=== PATIENT | female | born 1970 ===

== ENCOUNTER 2017-04-16 21:27 | Inpatient (IN) | payer OTHER, MEDICAID ==
[2017-04-16 21:29] VITALS: BMI 21.0
--- NOTE | 2017-04-16 22:22 | ED PDOC ---
Arrival/HPI - General Chief Complaint: Psychiatric Evaluation Time Seen by Provider: 04/16/17 21:56 - History of Present Illness Narrative History of Present Illness (Text): 47 y/o F brought in by EMS for bizarre behavior, agitated, states smoked crack, is requesting psych eval and medication because she is feeling wired. She denies pain, dyspnea, vomiting. Past Medical History - Infectious Disease Hx of Infectious Diseases: None - Tetanus Immunization Tetanus Immunization: Unknown - Past Medical History Past Medical History: No Previous - Cardiac Hx Cardiac Disorders: No Hx Hypertension: No - Pulmonary Hx Respiratory Disorders: No Hx Tuberculosis: No - Neurological Hx Neurological Disorder: No HX Cerebrovascular Accident: No Hx Seizures: No - HEENT Hx HEENT Disorder: No - Renal Hx Renal Disorder: No - Endocrine/Metabolic Hx Endocrine Disorders: No - Hematological/Oncological Hx Blood Disorders: No Hx Cancer: No - Integumentary Hx Dermatological Disorder: No - Musculoskeletal/Rheumatological Hx Musculoskeletal Disorders: No Hx Falls: No - Gastrointestinal Hx Gastrointestinal Disorders: No - Genitourinary/Gynecological Hx Sexually Transmitted Diseases: No Hx Urinary Tract Infection: Yes - Psychiatric Hx Psychophysiologic Disorder: Yes Hx Anxiety: Yes Hx Bipolar Disorder: Yes Hx Depression: Yes Hx Emotional Abuse: No Hx Physical Abuse: No Hx Schizophrenia: No Hx Sexual Abuse: No Hx Substance Use: Yes (Crack/Cocaine) - Past Surgical History Past Surgical History: No Previous - Surgical History Other/Comment: Left index surgery - Anesthesia Hx Anesthesia: No - Suicidal Assessment Feels Threatened In Home Enviroment: No Family/Social History Family/Social History: No Known Family HX Smoking Status: Heavy Smoker > 10 Cigarettes Daily Hx Alcohol Use: No Hx Substance Use: Yes (Crack/Cocaine) Substance used: Crack/Cocaine Hx Substance Use Treatment: Yes Allergies/Home Meds Allergies/Adverse Reactions: Allergies Penicillins Allergy (Verified 02/09/16 03:17) RASH Review of Systems - Physician Review All systems were reviewed & negative as marked: Yes - Review of Systems Constitutional: absent: Fevers Cardiovascular: absent: Chest Pain Physical Exam - Physical Exam Narrative Physical Exam (Text): Constitutional: Agitated. Head: Normocephalic. Atraumatic. Eyes: PERRL. ENT: Moist mucous membranes. Neck: Supple. Cardiovascular: Regular rate. Chest: No tenderness. Respiratory: Clear to auscultation bilaterally. GI: Soft. Nontender. Nondistended. Back: No CVA tenderness. Musculoskeletal: No tenderness or swelling of extremities. Skin: No rash. Neurologic: Alert, no focal deficit. Vital Signs Pulse Resp BP Pulse Ox 04/16/17 21:27 126 H 24 114/62 97 Medical Decision Making ED Course and Treatment: Medically clear for psych evaluation. Plan: -- EKG -- Labs -- Chest X-ray One View -- Urinalysis -- HCG, Qualit Urine -- Reassess and disposition Progress Notes: 04/16/17 22:31 EKG shows Sinus rhythm at [address] elevation. Interpreted by me. 04/17/17 05:27 CXR Impression: As read by me, NAD - Lab Interpretations Lab Results: 04/16/17 22:50 04/16/17 22:50 Lab Results 04/17/17 03:34: Urine Opiates Screen Negative, Urine Methadone Screen Negative, Ur Barbiturates Screen Negative, Ur Phencyclidine Scrn Negative, Ur Amphetamines Screen Negative, U Benzodiazepines Scrn Negative, U Oth Cocaine Metabols Positive H, U Cannabinoids Screen Positive H 04/17/17 03:34: Urine Color Yellow, Urine Appearance Clear, Urine pH 7.0, Ur Specific [place] [employer] 1.010, Urine Protein Negative, Urine Glucose (UA) Negative, Urine Ketones Negative, Urine Blood Trace-lysed H, Urine Nitrate Negative, Urine Bilirubin Negative, Urine Urobilinogen 1.0 H, Ur Leukocyte Esterase Small H, Urine RBC 0 - 2, Urine WBC 1 - 3, Ur Epithelial Cells 0 - 2, Amorphous Sediment Few, Urine Bacteria Few, Urine HCG, Qual Negative 04/16/17 22:50: Alcohol, Quantitative 20 H 04/16/17 22:50: Salicylates < 1 L, Acetaminophen < 10.0 L 04/16/17 22:50: Sodium 135, Potassium 3.4 L, Chloride 100, Carbon Dioxide 24, Anion Gap 15, BUN 15, Creatinine 0.9, Est GFR ( Amer) > 60, Est GFR (Non- Af Amer) > 60, Random Glucose 82, Calcium 9.3, Total Bilirubin 0.3, AST 31, ALT 32, Alkaline Phosphatase 75, Total Protein 7.8, Albumin 3.9, Globulin 3.9, Albumin/Globulin Ratio 1.0 L 04/16/17 22:50: WBC 8.4 D, RBC 3.44 L, Hgb 10.9 L, Hct 32.6 L, MCV 94.8, MCH 31.7, MCHC 33.4, RDW 13.0, Plt Count 586 H, MPV 8.8, Gran % 66.4, Lymph % (Auto ) 24.5, [place] % (Auto) 7.5 H, Eos % (Auto) 1.0 L, Baso % (Auto) 0.6, Gran # 5.58 , Lymph # 2.1, [place] # 0.6, Eos # 0.1, Baso # 0.05 I have reviewed the lab results: Yes - RAD Interpretation Radiology Orders: 04/17/17 04:28 CHEST PORTABLE [RAD] Stat - EKG Interpretation Interpreted by ED Physician: Yes Type: 12 lead EKG Disposition/Present on Arrival - Present on Arrival Any Indicators Present on Arrival: No History of DVT/PE: No History of Uncontrolled Diabetes: No Urinary Catheter: No History of Decub. Ulcer: No History Surgical Site Infection Following: None - Disposition Have Diagnosis and Disposition been Completed?: Yes Diagnosis: Bipolar 1 disorder, Cocaine abuse, Cocaine-induced mood disorder Disposition: HOSPITALIZED Disposition Time: 06:15 Patient Plan: Admission Condition: SERIOUS Forms: Ge[employer] (Icelandic)
[2017-04-16 23:07] LABS: BASO # 0.05 K/mm3 (0.0-2.0); BASO % 0.6 % (0.0-3.0); EOS # 0.1 (0.0-0.7); GRAN # 5.58 (1.4-6.5); GRAN % 66.4 % (50.0-68.0); HEMOGLOBIN 10.9 g/dL (12.0-16.0); LYMPH # 2.1 (1.2-3.4); LYMPH % 24.5 % (22.0-35.0); MEAN CELL VOLUME 94.8 fl (80.0-105.0); MEAN CORPUSCULAR HEMOGLOBIN 31.7 pg (25.0-35.0); MEAN CORPUSCULAR HGB CONC 33.4 g/dl (31.0-37.0); MEAN PLATELET VOLUME 8.8 fl (7.0-11.0); MONO # 0.6 (0.1-0.6); MONO % 7.5 % (1.0-6.0); RBC 3.44 10^6/uL (3.5-6.1); WHITE BLOOD COUNT 8.4 10^3/ul (4.5-11.0)
[2017-04-16 23:17] LABS: ACETAMINOPHEN < 10.0 ug/ml (10.0-20.0); SALICYLATE < 1 mg/dL (2.0-20.0)
[2017-04-16 23:19] LABS: ALBUMIN 3.9 g/dL (3.0-4.8); ALT/SGPT 32 U/L (7-56); AST/SGOT 31 U/L (14-36); BLOOD UREA NITROGEN 15 mg/dL (7-21); CALCIUM 9.3 mg/dL (8.4-10.5); GFR AFRICAN-AMERICAN > 60; GFR NON-AFRICAN AMERICAN > 60
[2017-04-17 03:50] LABS: URINE BILIRUBIN NEGATIVE (NEGATIVE); URINE BLOOD TRACE-LYSED (NEGATIVE); URINE GLUCOSE (UA) NEGATIVE (NEGATIVE); URINE LEUKOCYTE ESTERASE SMALL Leu/uL (NEGATIVE); URINE NITRATE NEGATIVE (NEGATIVE); URINE PROTEIN NEGATIVE mg/dL (<30 mg/dL)
[2017-04-17 03:54] LABS: URINE APPEARANCE CLEAR (CLEAR); URINE COLOR YELLOW (YELLOW)
[2017-04-17 03:55] LABS: HCG,QUALITATIVE URINE NEGATIVE (NEGATIVE)
[2017-04-17 04:15] LABS: BARBITURATES, UR NEGATIVE (NEGATIVE); BENZODIAZEPINES, UR NEGATIVE (NEGATIVE); OPIATES, UR NEGATIVE (NEGATIVE); PHENCYCLIDINE, UR NEGATIVE (NEGATIVE)
[2017-04-17 04:21] LABS: URINE AMORPHOUS SEDIMENT FEW; URINE BACTERIA FEW (NEG); URINE EPITHELIAL CELLS 0 - 2 /hpf (0-5); URINE RBC 0 - 2 /hpf (0-2)
[2017-04-17] MEDS: DiphenhydrAMINE 50 mg/ml Inj IM PRN (07:39)
--- NOTE | 2017-04-17 10:10 | RAD ---
HISTORY: psych COMPARISON: 02/09/2016 FINDINGS: LUNGS: No active pulmonary disease. PLEURA: No significant pleural effusion identified, no pneumothorax apparent. CARDIOVASCULAR: Normal. OSSEOUS STRUCTURES: No significant abnormalities. VISUALIZED UPPER ABDOMEN: Normal. OTHER FINDINGS: None. IMPRESSION: No active disease.
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
--- NOTE | 2017-04-17 16:53 | PCM.BM ---
<Adri Lopez - Last Filed: 04/17/17 16:49> Treatment Plan Problems - Problems identified on initial assessmt agitated/aggressive Date Initiated: 04/17/17 Time Initiated: 16:30 Assessment reference: NA Status: Active Priority: 1 altered sleep pattern Date Initiated: 04/17/17 Time Initiated: 16:30 Assessment reference: NA Status: Active Priority: 2 high risk injury Date Initiated: 04/17/17 Time Initiated: 16:30 Assessment reference: NA Status: Active altered thought process Date Initiated: 04/17/17 Time Initiated: 16:55 Assessment reference: NA Status: Active medication non adherence Date Initiated: 04/17/17 Time Initiated: 16:56 Assessment reference: NA Status: Active Treatment assets and liabiliti Patient Assests: self-reliant, ADL independent, negotiates basic needs Patient Liabilities: live alone, financial problems, poor support system, substance abuse - Milieu Protocol Maintain good personal hygiene: every shift Encourage regular showers, every shift Remind patient to perform daily oral care, every shift Assist patient to perform ADL's Conduct patient checks and document Observation sheet: Q15 minutes Maintain personal safety: every shift Educate patient to report safety concerns to staff, every shift Monitor environment for contraband/sharps Medication safety: Monitor for expected outcome, potential side effects: every shift, Assess barriers to learning: every shift, Assess readiness for medication education: every shift Milieu Narrative: Milieu/structure/supportive therapy Medical consult was called SW consultation for discharge plan and social issues Med management Nicotine patch seroquel 200mg po tid for psychosis klonopin 0.5mg po tid scheduled for anxiety neurontin 300mg po tid for cravings ambien 5mg po hs for insomnia prn PRN meds Haldol/benadryl/ativan Family involvement Follow up on labs Will monitor closely Pt was educated about risk/benefits and alternatives of medications, coping strategies (safety plan, suicide prevention), relapse prevention, importance of follow up with psychiatrist and therapist, stay away from drugs/alcohol/smoking Discharge/Continuing Care - Education Needs Education Needs: Patient Medication, Patient Diagnosis/Disease Process, Patient Coping Skills, Patient Personal Hygiene/Grooming - Discharge Discharge Criteria: Tolerates medication w/o severe side effects, Free of Suicidal thoughts, Free of Homicidal thoughts, Free of paranoid thoughts, Free of agitation, Normal sleep pattern, Ability to care for self - Treatment Team Participation Patient/Family/SO Statement: Milieu/structure/supportive therapy Medical consult was called SW consultation for discharge plan and social issues Med management Nicotine patch seroquel 200mg po tid for psychosis klonopin 0.5mg po tid scheduled for anxiety neurontin 300mg po tid for cravings ambien 5mg po hs for insomnia prn PRN meds Haldol/benadryl/ativan Family involvement Follow up on labs Will monitor closely Pt was educated about risk/benefits and alternatives of medications, coping strategies (safety plan, suicide prevention), relapse prevention, importance of follow up with psychiatrist and therapist, stay away from drugs/alcohol/smoking <Ines Khoury Y - Last Filed: 04/17/17 17:28> Family Contact Family involvement: Famliy/SO not involved Family contact: Patient declines to allow family contact at present
--- NOTE | 2017-04-17 20:25 | CARD ---
APPROVED REPORT EKG Measurement Heart [id number] <Conclusion> Sinus tachycardia Biatrial enlargement Abnormal ECG
[2017-04-18] MEDS ORDERED: Potassium Chloride 20 mEq ER Tab PO ONE (06:51)
--- NOTE | 2017-04-18 09:20 | PCM.PYCHPN ---
Psychiatric Progress Note - Psychiatric Progress Note Patient seen today, length of contact: 25 min Patient Chief Complaint: depressed Problems Identified/Issues Discussed: I reviewed assessment and recent notes. I met with patient at bedside. Patient is known to me from prior admissions. She appears unkempt, oriented x3 and tenuously cooperative with my questioning. She has been labile and irritable on the unit and has required IM prns. Angry last night due to another patient's snoring and was given Ativan. Patient tells me that she is very depressed and hasn't been sleeping well. She is used to higher doses of Seroquel. Patient denies hallucinations and doesn't appear to be responding to internal stimuli. She denies discomfort, side effects or pain. Insight and Judgment are poor. . Diagnostic Results: schizoaffective d/o panic disorder cannabis dependence borderline personality d/o r/o antisocial personality disorder Medication Change: Yes (Increased Seroquel) Medical Record Reviewed: Yes Mental Status Examination - Cognitive Function Orientation: Person Attention: WNL Concentration: Poor Association: Loose - Mood Mood: Depressed - Affect Affect: Constricted, Flat, Other (labile) - Formal Thought Process Formal Thought Process: Hallucinations (currently denies), Delusions, Paranoia, Loosening of associations - Homicidal Ideation Homicidal Ideation: No Goal/Treatment Plan - Goal/Treatment Plan Progress Toward Problem(s) and Goals/Treatment Plan: * c/w current tx and plan * Increased Seroquel to 100/100/200 on 04/18/16 to help with mood control and off -label for sleep * No new weekend labs thus far * Vitals reviewed and noted below: 02/09/16 02/10/16 04/17/17 14:00 07:23 01:29 Temperature 97.6 F 98.0 F Pulse Rate 88 73 95 H Respiratory 18 20 18 Rate Blood Pressure 112/75 96/70 L 116/64 04/17/17 04/17/17 03:29 05:29 Temperature Pulse Rate 92 H 93 H Respiratory 18 18 Rate Blood Pressure 114/63 112/62
[2017-04-18] MEDS: Multivitamin With Minerals Tab PO SCH (10:09)
[2017-04-18] MEDS: DiphenhydrAMINE 50 mg/ml Inj IM PRN (19:45)
[2017-04-19 08:11] LABS: HEMOGLOBIN 12.5 g/dL (12.0-16.0); MEAN CORPUSCULAR HEMOGLOBIN 31.7 pg (25.0-35.0); MEAN CORPUSCULAR HGB CONC 32.1 g/dl (31.0-37.0); MEAN PLATELET VOLUME 9.2 fl (7.0-11.0); RBC 3.94 10^6/uL (3.5-6.1); RED CELL DISTRIBUTION WIDTH 13.6 % (11.5-14.5); WHITE BLOOD COUNT 9.2 10^3/ul (4.5-11.0)
[2017-04-19] MEDS: Multivitamin With Minerals Tab PO SCH (08:21)
[2017-04-19 08:25] LABS: ALT/SGPT 31 U/L (7-56); AST/SGOT 51 U/L (14-36); BLOOD UREA NITROGEN 16 mg/dL (7-21); CALCIUM 9.7 mg/dL (8.4-10.5); GFR AFRICAN-AMERICAN > 60; GFR NON-AFRICAN AMERICAN > 60
[2017-04-19 08:44] LABS: MEAN CELL VOLUME 98.7 fl (80.0-105.0)
--- NOTE | 2017-04-19 09:01 | PCM.PYCHPN ---
Psychiatric Progress Note - Psychiatric Progress Note Patient seen today, length of contact: 25 min Patient Chief Complaint: depressed Problems Identified/Issues Discussed: I reviewed recent notes and met with patient at bedside. Patient has been labile , loud and disruptive on the unit. She required Haldol, Ativan and Benadryl IMs last night. This morning she appears unkempt and emotional. Indicates that she is "not good". Patient is upset that her daughter hates her and has no compassion for her. Patient also had bad dreams last night and feels that people are coming after her. She denies hallucinations and she isn't responding to internal stimuli during our interview. She is, however, emotionally brittle and anxious. Presently she denies discomfort, side effects or pain. Tolerating her medications, including recent increase of Seroquel last night. Insight and judgment remains poor, impulse control is tenuous. Diagnostic Results: schizoaffective d/o panic disorder cannabis dependence borderline personality d/o r/o antisocial personality disorder Medication Change: Yes (Increased Seroquel) Medical Record Reviewed: Yes Mental Status Examination - Cognitive Function Orientation: Person Attention: WNL Concentration: Poor Association: Loose - Mood Mood: Depressed ("not good") - Affect Affect: Constricted, Flat, Other (labile, emotional) - Formal Thought Process Formal Thought Process: Hallucinations (currently denies), Delusions, Paranoia ( feels that people are coming after her), Loosening of associations - Homicidal Ideation Homicidal Ideation: No Goal/Treatment Plan - Goal/Treatment Plan Progress Toward Problem(s) and Goals/Treatment Plan: * c/w current tx and plan * Increased Seroquel to 100/100/200 on 04/18/17 and again on 04/19/17 to 100/100/ 250 to help with mood control and off-label for sleep * Vitals reviewed and noted below: 04/17/17 04/17/17 04/17/17 01:29 03:29 05:29 Pulse Rate 95 H 92 H 93 H Pulse Rate [ Radial] Respiratory 18 Rate Blood Pressure 116/64 114/63 112/62 04/17/17 11:16 Pulse Rate Pulse Rate [ 72 Radial] Respiratory 16 Rate Blood Pressure * Recent weekend floor labs noted below: Laboratory Results - last 24 hr 04/19/17 04/19/17 07:45 07:45 WBC 9.2 RBC 3.94 Hgb 12.5 Hct 38.9 MCV 98.7 D MCH 31.7 MCHC 32.1 RDW 13.6 Plt Count 558 H MPV 9.2 Sodium 137 Potassium 4.5 Chloride 103 Carbon Dioxide 29 Anion Gap 10 BUN 16 Creatinine 0.7 Est GFR ( Amer) > 60 Est GFR (Non-Af Amer) > 60 Random Glucose 100 Calcium 9.7 Total Bilirubin 0.2 AST 51 H D ALT 31 Alkaline Phosphatase 73 Total Protein 8.3 Albumin 4.0 Globulin 4.2 Albumin/Globulin Ratio 1.0 L
--- NOTE | 2017-04-19 14:19 | PN ---
DATE: SUBJECTIVE: I saw her in her room in psychiatric floor. She is very upset. She is very angry. She said she has a lot of anger problem. She also says she is too thin and she needs Ensure. She wants an HIV test. She wants to be checked of her kidneys and her liver. She wants to have a lot of things. She was very demanding and forceful this morning with some pressured speech. She is on Ambien, Ativan, Benadryl, Haldol, potassium replacement, Klonopin, Neurontin, Nicoderm patch, Seroquel, vitamins, and Tylenol. OBJECTIVE: VITAL SIGNS: Temperature 97.9, 102 pulse, 116/75 blood pressure, 20 respiratory rate, and 90% sat on room air. HEENT: Head is atraumatic, normocephalic. Throat is moist. NECK: Supple. HEART: Regular rate. LUNGS: Clear to auscultation. ABDOMEN: Soft and nontender. Positive bowel sounds. EXTREMITIES: No edema. LABORATORY DATA: She has white count of 9.2, hemoglobin of 12.5, hematocrit 30.9, and platelets are 558. Sodium 137, potassium 4.5, BUN 16, creatinine 0.7, GFR is greater than 60, sugar is 100, calcium is 9.7, total bilirubin is 0.2, AST is 51, ALT is 31, alkaline phosphatase is 73, total protein is 8.3, and albumin is 4.2. Urine is clean. Toxicology was positive for cocaine and marijuana and alcohol. IMPRESSION AND PLAN: She is being seen by Psychiatry. She has multiple issues, drug abuse with cocaine and marijuana, bipolar, and low potassium. I am going to order some Ensure for her. Recheck her HIV and some other blood tests and ultrasound of the abdomen. We will watch her closely. Nate Smiley DO
[2017-04-20] MEDS ORDERED: Bisacodyl 5mg EC Tab PO ONE (07:33)
[2017-04-20] MEDS: Multivitamin With Minerals Tab PO SCH (08:22)
--- NOTE | 2017-04-20 08:22 | CON ---
DATE: 04/18/2017 SUBJECTIVE: I was called to see Bárbara, who is in room 513, sleeping. She is not doing well at all. She is having bizarre behavior. I understand that she did some cocaine and marijuana, smoked crack, and now she is out of if; she was put up in the psychiatric meng. Denies any real medical history, but urinary tract infection, anxiety, and depression. Now, she is doing crack cocaine and marijuana. She had a surgery of her left index finger. She smokes. She does drugs, crack cocaine. Denies alcohol. She has been in substance abuse treatments. ALLERGIES: PENICILLIN. REVIEW OF SYSTEMS: Difficult to get, she is in and out of it, not feeling well, that is all she would say. No acute vision or hearing changes. No chest pain, shortness of breath, or abdominal pain. Some cramping. No nauseousness. Not a good historian. PHYSICAL EXAMINATION VITAL SIGNS: Pulse 126, 24 respiratory rate, 114/62 blood pressure, 97% of O2 saturation. HEENT: Head is atraumatic, normocephalic. HEART: Regular rate. LUNGS: Decreased breath sounds, but clear. ABDOMEN: Soft, nontender. EXTREMITIES: No edema. NEUROLOGIC: Alert. No clear neurological deficit at this time. LABORATORY DATA: She had tests, she has an 8.4 white count, 10.9 hemoglobin, 32.6 hematocrit, with 586 platelets. Sodium 135, potassium is 3.4, replace the potassium, BUN 50, creatinine 0.9, GFR is greater than 60, sugar is 82, calcium is 9.3, total bilirubin is 0.3, AST is 31, ALT is 32, alkaline phosphatase 75, total protein is 7.8. Urine was clean. Toxicology showed positive for cocaine and also positive for alcohol, but she denied that she did, not a great historian. ASSESSMENT AND PLAN: We will check her labs tomorrow. I encouraged her to eat as best as she can, participate in groups. I do not think she is off. We will follow medically, make sure that she gets the potassium pill because she has low potassium. Nate Smiley DO [facility] # [id number] JAQUELINE
[2017-04-20 09:56] LABS: HEMOGLOBIN 10.8 g/dL (12.0-16.0); MEAN CELL VOLUME 97.7 fl (80.0-105.0); MEAN CORPUSCULAR HEMOGLOBIN 31.7 pg (25.0-35.0); MEAN CORPUSCULAR HGB CONC 32.4 g/dl (31.0-37.0); MEAN PLATELET VOLUME 8.9 fl (7.0-11.0); RBC 3.41 10^6/uL (3.5-6.1); RED CELL DISTRIBUTION WIDTH 13.5 % (11.5-14.5); WHITE BLOOD COUNT 6.6 10^3/ul (4.5-11.0)
--- NOTE | 2017-04-20 10:04 | US ---
HISTORY: Abdominal pain COMPARISON: None. TECHNIQUE: Grayscale imaging was performed. FINDINGS: LIVER: Measures 16.0 cm. Normal echogenicity of the liver parenchyma. No mass. No intrahepatic bile duct dilatation. GALLBLADDER: The gallbladder is contracted. No gallstones or pericholecystic fluid. The sonographic Huggins's sign is negative. COMMON BILE DUCT: Measures 4.9 mm. No stones. No dilatation. PANCREAS: Unremarkable as visualized. No mass. No ductal dilatation. RIGHT KIDNEY: Measures 11.6cm. Normal echogenicity. No calculus, mass, or hydronephrosis. There is a 1.6 x 1.8 x 2.1 cm cyst in the upper pole. LEFT KIDNEY: Measures 12.2cm. Normal echogenicity. No calculus, mass, or hydronephrosis. SPLEEN: Normal in size and contour. No mass. AORTA: No aneurysmal dilatation. IVC: Unremarkable. OTHER FINDINGS: None. IMPRESSION: The gallbladder is contracted which may be due to nonfasting status or chronic cholecystitis. If clinically indicated, HIDA scan may be performed to evaluate gallbladder function.
[2017-04-20 10:10] LABS: ALB/GLOB RATIO 0.9 (1.1-1.8); ALBUMIN 3.5 g/dL (3.0-4.8); ALT/SGPT 30 U/L (7-56); AST/SGOT 48 U/L (14-36); BLOOD UREA NITROGEN 18 mg/dL (7-21); CALCIUM 9.2 mg/dL (8.4-10.5); GFR AFRICAN-AMERICAN > 60; GFR NON-AFRICAN AMERICAN > 60
--- NOTE | 2017-04-20 13:40 | PCM.BM ---
- Diagnosis (1) Borderline personality disorder Status: Acute Interventions: 04/17/17 15:36 Psychoeducation Psychopharmacology/adjustment of medications as needed/ monitoring possible side effects Evaluate pt on daily basis Compliance with medications and follow up appointments Suicide and homicide risk assessment and prevention, coping strategies, safety plan Relapse prevention Family involvement As outpatient: Transference-focused psychotherapy/dialectical behavioral therapy /schema therapy Mindfulness skills (2) Polysubstance dependence Status: Acute Interventions: 04/17/17 15:36 Monitoring withdrawal symptoms Medical detoxification Pharmacotherapy for alcohol/benzos/opioid dependence Maintaining sobriety Relapse prevention Possible rehabilitation Motivational interviewing 12-step programs: AA meetings (3) Schizoaffective disorder Status: Acute Interventions: 04/17/17 15:37 Psychoeducation/psychotherapy Psychopharmacology/adjustment of medications as needed/ monitoring possible side effects Evaluate pt on daily basis Compliance with medications and follow up appointments Long acting medication if pt is noncompliant with pill form Suicide and homicide risk assessment and prevention, coping strategies, safety plan Relapse prevention Reduction of symptoms Improve functional status Possible assertive community treatment Cognitive behavioral therapy Family involvement Possible social skill training as outpatient - Milieu Protocol Milieu Narrative: Milieu/structure/supportive therapy Medical consult was called consultation for discharge plan and social issues Med management Nicotine patch seroquel 200mg po tid for psychosis klonopin 0.5mg po tid scheduled for anxiety neurontin 300mg po tid for cravings ambien 5mg po hs for insomnia prn PRN meds Haldol/benadryl/ativan Family involvement Follow up on labs Will monitor closely Pt was educated about risk/benefits and alternatives of medications, coping strategies (safety plan, suicide prevention), relapse prevention, importance of follow up with psychiatrist and therapist, stay away from drugs/alcohol/smoking Discharge/Continuing Care - Treatment Team Participation Patient/Family/SO Statement: Milieu/structure/supportive therapy Medical consult was called consultation for discharge plan and social issues Med management Nicotine patch seroquel 200mg po tid for psychosis klonopin 0.5mg po tid scheduled for anxiety neurontin 300mg po tid for cravings ambien 5mg po hs for insomnia prn PRN meds Haldol/benadryl/ativan Family involvement Follow up on labs Will monitor closely Pt was educated about risk/benefits and alternatives of medications, coping strategies (safety plan, suicide prevention), relapse prevention, importance of follow up with psychiatrist and therapist, stay away from drugs/alcohol/smoking
--- NOTE | 2017-04-20 14:12 | PN ---
DATE: SUBJECTIVE: I saw Bárbara in her room in the psychiatric floor. She is not sleeping that great. She was also quite constipated and wants something for that. She is getting her Ensure and she is happy about that. I gave her Dulcolax tablet, that is what we have agreed upon. Otherwise, she is not doing very well yet, just not comfortable, not sleeping well. OBJECTIVE: VITAL SIGNS: She has 97.9 temperature, 80 pulse, 126/85 blood pressure, 20 respiratory rate, 98% O2 sat on room air. HEENT: Head is atraumatic, normocephalic. HEART: Regular rate. LUNGS: Decreased breath sounds, but clear. ABDOMEN: Soft. EXTREMITIES: No edema. MEDICATIONS: She is currently on Ambien, Ativan, Benadryl, Haldol, Klonopin, Neurontin, Nicoderm patch, Seroquel, , Tylenol. I added Dulcolax tablet today. LABORATORY DATA: She has white count 9.2, hemoglobin of 12.5, hematocrit 38.9, and platelets 558,000. Sodium 137, potassium 4.5, BUN 16, creatinine 0.7, GFR is greater than 60, sugar is 100, calcium is 9.7, total bilirubin is 0.2, AST is 51, ALT is 31, alkaline phosphatase is 73, total protein is 8.3. Urine is now negative for , positive for cocaine and marijuana and alcohol. IMPRESSION AND PLAN: She is here in the hospital on the psychiatric unit for drug abuse, cocaine and marijuana; bizarre behavior; bipolar; constipation; low potassium. We are watching her closely. Encouragement with groups and medications . Nate Smiley DO JAQUELINE
--- NOTE | 2017-04-20 15:04 | PCM.PYCHPN ---
Psychiatric Progress Note - Psychiatric Progress Note Patient seen today, length of contact: 30min Patient Chief Complaint: "everybody hates me..." Problems Identified/Issues Discussed: Suicide/ homicide prevention, past psychiatric h/o, current psychiatric symptoms , medical problems, risk/benefits and alternatives of medications, medications compliance, coping strategies, substance abuse h/o, relapse prevention, importance of follow up with psychiatrist and therapist, discharge plan. Medical Problems: UTI abx started Diagnostic Results: 04/20/17 09:40 04/20/17 09:40 Lab Results 04/20/17 09:40: TSH 3rd Generation 1.56 04/20/17 09:40: Sodium 138, Potassium 3.7, Chloride 106, Carbon Dioxide 23, Anion Gap 12, BUN 18, Creatinine 0.6 L, Est GFR ( Amer) > 60, Est GFR ( Non-Af Amer) > 60, Random Glucose 151 H, Calcium 9.2, Total Bilirubin 0.1 L, AST 48 H, ALT 30, Alkaline Phosphatase 73, Total Protein 7.2, Albumin 3.5, Globulin 3.8, Albumin/Globulin Ratio 0.9 L 04/20/17 09:40: WBC 6.6 D, RBC 3.41 L, Hgb 10.8 L, Hct 33.3 L, MCV 97.7, MCH 31.7, MCHC 32.4, RDW 13.5, Plt Count 455 H, MPV 8.9 04/19/17 07:45: Sodium 137, Potassium 4.5, Chloride 103, Carbon Dioxide 29, Anion Gap 10, BUN 16, Creatinine 0.7, Est GFR ( Amer) > 60, Est GFR (Non- Af Amer) > 60, Random Glucose 100, Calcium 9.7, Total Bilirubin 0.2, AST 51 H D , ALT 31, Alkaline Phosphatase 73, Total Protein 8.3, Albumin 4.0, Globulin 4.2 , Albumin/Globulin Ratio 1.0 L 04/19/17 07:45: WBC 9.2, RBC 3.94, Hgb 12.5, Hct 38.9, MCV 98.7 D, MCH 31.7, MCHC 32.1, RDW 13.6, Plt Count 558 H, MPV 9.2 04/17/17 03:34: Urine Opiates Screen Negative, Urine Methadone Screen Negative, Ur Barbiturates Screen Negative, Ur Phencyclidine Scrn Negative, Ur Amphetamines Screen Negative, U Benzodiazepines Scrn Negative, U Oth Cocaine Metabols Positive H, U Cannabinoids Screen Positive H 04/17/17 03:34: Urine Color Yellow, Urine Appearance Clear, Urine pH 7.0, Ur Specific [place] 1.010, Urine Protein Negative, Urine Glucose (UA) Negative, Urine Ketones Negative, Urine Blood Trace-lysed H, Urine Nitrate Negative, Urine Bilirubin Negative, Urine Urobilinogen 1.0 H, Ur Leukocyte Esterase Small H, Urine RBC 0 - 2, Urine WBC 1 - 3, Ur Epithelial Cells 0 - 2, Amorphous Sediment Few, Urine Bacteria Few, Urine HCG, Qual Negative 04/16/17 22:50: Alcohol, Quantitative 20 H 04/16/17 22:50: Salicylates < 1 L, Acetaminophen < 10.0 L 04/16/17 22:50: Sodium 135, Potassium 3.4 L, Chloride 100, Carbon Dioxide 24, Anion Gap 15, BUN 15, Creatinine 0.9, Est GFR ( Amer) > 60, Est GFR (Non- Af Amer) > 60, Random Glucose 82, Calcium 9.3, Total Bilirubin 0.3, AST 31, ALT 32, Alkaline Phosphatase 75, Total Protein 7.8, Albumin 3.9, Globulin 3.9, Albumin/Globulin Ratio 1.0 L 04/16/17 22:50: WBC 8.4 D, RBC 3.44 L, Hgb 10.9 L, Hct 32.6 L, MCV 94.8, MCH 31.7, MCHC 33.4, RDW 13.0, Plt Count 586 H, MPV 8.8, Gran % 66.4, Lymph % (Auto ) 24.5, Bent % (Auto) 7.5 H, Eos % (Auto) 1.0 L, Baso % (Auto) 0.6, Gran # 5.58 , Lymph # 2.1, Bent # 0.6, Eos # 0.1, Baso # 0.05 Vital Signs Temp Pulse Pulse Resp BP Pulse Ox 04/20/17 06:56 97.9 F 80 20 126/85 04/19/17 07:37 97.9 F 102 H 20 116/75 04/17/17 11:16 72 16 04/17/17 05:29 93 H 18 112/62 98 04/17/17 03:29 92 H 18 114/63 98 04/17/17 01:29 95 H 18 116/64 98 04/16/17 23:29 98 H 20 115/65 97 04/16/17 21:27 126 H 24 114/62 97 DSM 5 Symptoms Update: shortly pt is 47yo female with history of Schizoaffective Disorder, Anxiety, Borderline Personality Disorder, h/o polysubstance abuse and dependence (crack, cocaine, MJA), multiple psychiatric admissions-most recently was in this facility February 2017, noncompliance with medications and follow up apps, pt came to the ED of Seroquel, klonopin and tegretol who was admitted to our psychiatric unit for depression, SI and derogatory hallucinations in the context of crack/cocaine and MJA use. pt was not able to contract for safety, needed further evaluation and stabilization. in the ED "I am tired of this f* world", "I do not like me", and "I am killing myself with drugs". pt was seen and examined today at the treatment team meeting, pt presented to be disheveled, poor personal hygiene, fair ADLs. as per RN report pt was loud, was agitated, needed to be medicated with IM Haldol+Benadryl and Ativan. pt was using profanities, almost attacked PCP. pt is emotionally labile, unpredictable, paranoid, disorganized. "everybody hates me" Impulse control is unpredictable. Diagnostic Results: schizoaffective d/o panic disorder cannabis dependence borderline personality d/o r/o antisocial personality disorder Medication Change: Yes (Increased Seroquel, neurontin) Medical Record Reviewed: Yes Consults ordered or reviewed: medical consult appreciated pt has UTI cipro started Mental Status Examination - Cognitive Function Orientation: Person Attention: WNL Concentration: Poor Association: Loose - Mood Mood: Depressed ("not good") - Affect Affect: Constricted, Flat, Other (labile, emotional) - Formal Thought Process Formal Thought Process: Hallucinations (currently denies), Delusions, Paranoia ( feels that people are coming after her), Loosening of associations - Suicidal Ideation Suicidal Ideation: Yes Plan: passive wish to be - Homicidal Ideation Homicidal Ideation: No Goal/Treatment Plan - Goal/Treatment Plan Need for Continued Stay: Remain at risks for inpatient hospitalization, Severe depression anxiety, Discharge may exacerbated symptoms, Severe functional impairment Progress Toward Problem(s) and Goals/Treatment Plan: Milieu/structure/supportive therapy Medical consult was called SW consultation for discharge plan and social issues Med management Nicotine patch seroquel 300mg po hs and 150am and 100mg noon. for psychosis klonopin 0.5mg po tid scheduled for anxiety neurontin 600mg po tid for cravings ambien 10mg po hs for insomnia prn PRN meds Haldol/benadryl/ativan Family involvement Follow up on labs Will monitor closely Pt was educated about risk/benefits and alternatives of medications, coping strategies (safety plan, suicide prevention), relapse prevention, importance of follow up with psychiatrist and therapist, stay away from drugs/alcohol/smoking Estimated Date of D/C: 04/30/17 - Smoking Cessation Smoking Cessation Initiated: Yes
[2017-04-21] MEDS: Multivitamin With Minerals Tab PO SCH (08:46)
--- NOTE | 2017-04-21 13:49 | PN ---
DATE: 04/21/2017 SUBJECTIVE: She actually fell asleep last night in between 2 chairs. She woke up fine. She is doing okay. She was asked the question about blood test. She is eating well, Trying in the group. PHYSICAL EXAMINATION: VITAL SIGNS: 97.6 temperature, 76 pulse, 124/78 blood pressure, 20 respiratory rate, 90% sat on room air. HEENT: Head is atraumatic, normocephalic. HEART: Regular rate. LUNGS: Clear to auscultation. ABDOMEN: Soft. EXTREMITIES: No edema. She is also constipated and a Dulcolax tablet did not work. We will try Dulcolax suppository today. She had blood tests done. LABORATORY DATA: The white count 6.6, hemoglobin 10.8, hematocrit 32.3, platelets of 455. 138 sodium, potassium 3.7, BUN 80, creatinine 0.6, GFR is greater than 60, sugar is 151, calcium is 9.2, total bili is 0.1. AST is 48, ALT is 30, alk phos 73, total protein 7.2, albumin is 3.5. TSH is 1.56. Urine is small. Urine is negative. Toxicology was positive cocaine, pot and alcohol. The only test we are missing is HIV. We will see how she does with that. Hopefully, that will be negative. We will then give her Dulcolax suppository today, see if we get the bowels moving. The patient is seen for low potassium, cocaine and marijuana abuse, bizarre behavior, bipolar, and constipation. Ntae Smiley DO JAQUELINE
--- NOTE | 2017-04-21 15:12 | PCM.PYCHPN ---
Psychiatric Progress Note - Psychiatric Progress Note Patient seen today, length of contact: 30min Patient Chief Complaint: "why everybody hates me? why my daughter do not give a sh...t" Problems Identified/Issues Discussed: Suicide/ homicide prevention, past psychiatric h/o, current psychiatric symptoms , medical problems, risk/benefits and alternatives of medications, medications compliance, coping strategies, substance abuse h/o, relapse prevention, importance of follow up with psychiatrist and therapist, discharge plan. Medical Problems: UTI abx started Diagnostic Results: 04/20/17 09:40 04/20/17 09:40 Lab Results 04/20/17 09:40: TSH 3rd Generation 1.56 04/20/17 09:40: Sodium 138, Potassium 3.7, Chloride 106, Carbon Dioxide 23, Anion Gap 12, BUN 18, Creatinine 0.6 L, Est GFR ( Amer) > 60, Est GFR ( Non-Af Amer) > 60, Random Glucose 151 H, Calcium 9.2, Total Bilirubin 0.1 L, AST 48 H, ALT 30, Alkaline Phosphatase 73, Total Protein 7.2, Albumin 3.5, Globulin 3.8, Albumin/Globulin Ratio 0.9 L 04/20/17 09:40: WBC 6.6 D, RBC 3.41 L, Hgb 10.8 L, Hct 33.3 L, MCV 97.7, MCH 31.7, MCHC 32.4, RDW 13.5, Plt Count 455 H, MPV 8.9 04/19/17 07:45: Sodium 137, Potassium 4.5, Chloride 103, Carbon Dioxide 29, Anion Gap 10, BUN 16, Creatinine 0.7, Est GFR ( Amer) > 60, Est GFR (Non- Af Amer) > 60, Random Glucose 100, Calcium 9.7, Total Bilirubin 0.2, AST 51 H D , ALT 31, Alkaline Phosphatase 73, Total Protein 8.3, Albumin 4.0, Globulin 4.2 , Albumin/Globulin Ratio 1.0 L 04/19/17 07:45: WBC 9.2, RBC 3.94, Hgb 12.5, Hct 38.9, MCV 98.7 D, MCH 31.7, MCHC 32.1, RDW 13.6, Plt Count 558 H, MPV 9.2 04/17/17 03:34: Urine Opiates Screen Negative, Urine Methadone Screen Negative, Ur Barbiturates Screen Negative, Ur Phencyclidine Scrn Negative, Ur Amphetamines Screen Negative, U Benzodiazepines Scrn Negative, U Oth Cocaine Metabols Positive H, U Cannabinoids Screen Positive H 04/17/17 03:34: Urine Color Yellow, Urine Appearance Clear, Urine pH 7.0, Ur Specific [place] 1.010, Urine Protein Negative, Urine Glucose (UA) Negative, Urine Ketones Negative, Urine Blood Trace-lysed H, Urine Nitrate Negative, Urine Bilirubin Negative, Urine Urobilinogen 1.0 H, Ur Leukocyte Esterase Small H, Urine RBC 0 - 2, Urine WBC 1 - 3, Ur Epithelial Cells 0 - 2, Amorphous Sediment Few, Urine Bacteria Few, Urine HCG, Qual Negative 04/16/17 22:50: Alcohol, Quantitative 20 H 04/16/17 22:50: Salicylates < 1 L, Acetaminophen < 10.0 L 04/16/17 22:50: Sodium 135, Potassium 3.4 L, Chloride 100, Carbon Dioxide 24, Anion Gap 15, BUN 15, Creatinine 0.9, Est GFR ( Amer) > 60, Est GFR (Non- Af Amer) > 60, Random Glucose 82, Calcium 9.3, Total Bilirubin 0.3, AST 31, ALT 32, Alkaline Phosphatase 75, Total Protein 7.8, Albumin 3.9, Globulin 3.9, Albumin/Globulin Ratio 1.0 L 04/16/17 22:50: WBC 8.4 D, RBC 3.44 L, Hgb 10.9 L, Hct 32.6 L, MCV 94.8, MCH 31.7, MCHC 33.4, RDW 13.0, Plt Count 586 H, MPV 8.8, Gran % 66.4, Lymph % (Auto ) 24.5, [place] % (Auto) 7.5 H, Eos % (Auto) 1.0 L, Baso % (Auto) 0.6, Gran # 5.58 , Lymph # 2.1, [place] # 0.6, Eos # 0.1, Baso # 0.05 Vital Signs Temp Pulse Pulse Resp BP Pulse Ox 04/20/17 06:56 97.9 F 80 20 126/85 04/19/17 07:37 97.9 F 102 H 20 116/75 04/17/17 11:16 72 16 04/17/17 05:29 93 H 18 112/62 98 04/17/17 03:29 92 H 18 114/63 98 04/17/17 01:29 95 H 18 116/64 98 04/16/17 23:29 98 H 20 115/65 97 04/16/17 21:27 126 H 24 114/62 97 Temp Pulse Resp BP Pulse Ox 97.6 F 76 20 124/78 98 04/21/17 07:01 04/21/17 07:01 04/21/17 07:01 04/21/17 07:01 04/17/17 05:29 DSM 5 Symptoms Update: shortly pt is 47yo female with history of Schizoaffective Disorder, Anxiety, Borderline Personality Disorder, h/o polysubstance abuse and dependence (crack, cocaine, MJA), multiple psychiatric admissions-most recently was in this facility February 2017, noncompliance with medications and follow up apps, pt came to the ED of S[facility], klonopin and tegretol who was admitted to our psychiatric unit for depression, SI and derogatory hallucinations in the context of crack/cocaine and MJA use. pt was not able to contract for safety, needed further evaluation and stabilization. in the ED "I am tired of this f* world", "I do not like me", and "I am killing myself with drugs". pt was seen and examined today on the hallway with LAURIE Swain, pt presented to be impulsive, loud, but some improvement with her aggressiveness, as per report pt was not agitated, but could be loud and disrespectful. pt said "I want to go to outpatient program, I don't want to use drugs", pt said she was sober for 15 years "I was doing well, I was working, I had a car, people treated me nicely". pt still psychotic, pt said that "what are those bugs on my skin, they are eating me alive", no bugs on pt's skin, pt is hallucinating. pt is emotionally labile, unpredictable. Impulse control is unpredictable. Diagnostic Results: schizoaffective d/o panic disorder cannabis dependence borderline personality d/o r/o antisocial personality disorder Medication Change: Yes (seroquel increased) Medical Record Reviewed: Yes Consults ordered or reviewed: medical consult appreciated pt has UTI cipro started Mental Status Examination - Cognitive Function Orientation: Person Attention: WNL Concentration: Poor Association: Loose - Mood Mood: Depressed ("not good") - Affect Affect: Constricted, Flat, Other (labile, emotional) - Formal Thought Process Formal Thought Process: Hallucinations (currently denies), Delusions, Paranoia ( feels that people are coming after her), Loosening of associations - Suicidal Ideation Suicidal Ideation: Yes - Homicidal Ideation Homicidal Ideation: No Goal/Treatment Plan - Goal/Treatment Plan Need for Continued Stay: Remain at risks for inpatient hospitalization, Severe depression anxiety, Discharge may exacerbated symptoms, Severe functional impairment Progress Toward Problem(s) and Goals/Treatment Plan: Milieu/structure/supportive therapy Medical consult was called SW consultation for discharge plan and social issues Med management Nicotine patch seroquel 300mg po amhs for psychosis klonopin 0.5mg po tid scheduled for anxiety neurontin 600mg po tid for cravings ambien 10mg po hs for insomnia prn PRN meds Haldol/benadryl/ativan Family involvement Follow up on labs Will monitor closely Pt was educated about risk/benefits and alternatives of medications, coping strategies (safety plan, suicide prevention), relapse prevention, importance of follow up with psychiatrist and therapist, stay away from drugs/alcohol/smoking Estimated Date of D/C: 04/30/17
[2017-04-22] MEDS: Multivitamin With Minerals Tab PO SCH (08:18)
--- NOTE | 2017-04-22 08:53 | PN ---
DATE: SUBJECTIVE: I saw Bárbara in her room. She is trying to get better. She has multiple requests. She finally went to the bathroom from the constipation with a suppository after that made a difference on her. She tells me she is feeling maybe a little bit better. She is eating okay. She is trying to participate. She did not move her bowels with the suppository. PHYSICAL EXAMINATION: VITAL SIGNS: 97.3 temp, 96 pulse, 106/79 blood pressure, 20 respiratory rate. She has taken the Ensure. HEENT: Head is atraumatic, normocephalic. HEART: Regular rate. LUNGS: Clear to auscultation. ABDOMEN: Soft. Positive bowel sounds. EXTREMITIES: No edema. LABORATORY DATA: She has HIV, it was nonreactive. Toxicology showed positive for cocaine, alcohol and marijuana. Urine was small. She has a 138 sodium, potassium 3.7, BUN 18, creatinine 0.6, GFR is greater than 60, sugar is 151, calcium is 9.2, total bili is 0.1, AST is 48, ALT is 30, alk phos 73, total protein 7.2. White count 6.6, hemoglobin 10.8, hematocrit 33.3, platelets 455. ASSESSMENT AND PLAN: I discussed that she should increase her fluids more. Continue with aggressive treatment and care as per Psychiatry. We will continue to follow, though let me know if they need me. Nate Smiley DO
--- NOTE | 2017-04-22 16:53 | PCM.PYCHPN ---
Psychiatric Progress Note - Psychiatric Progress Note Patient seen today, length of contact: 30min Patient Chief Complaint: "I still hear voices, but now I can ignore them..., now I am adamant that I want to stay clean..." Problems Identified/Issues Discussed: Suicide/ homicide prevention, past psychiatric h/o, current psychiatric symptoms , medical problems, risk/benefits and alternatives of medications, medications compliance, coping strategies, substance abuse h/o, relapse prevention, importance of follow up with psychiatrist and therapist, discharge plan. Medical Problems: UTI abx started pt c/o constipation, colace started Diagnostic Results: 04/20/17 09:40 04/20/17 09:40 Lab Results 04/20/17 09:40: TSH 3rd Generation 1.56 04/20/17 09:40: Sodium 138, Potassium 3.7, Chloride 106, Carbon Dioxide 23, Anion Gap 12, BUN 18, Creatinine 0.6 L, Est GFR ( Amer) > 60, Est GFR ( Non-Af Amer) > 60, Random Glucose 151 H, Calcium 9.2, Total Bilirubin 0.1 L, AST 48 H, ALT 30, Alkaline Phosphatase 73, Total Protein 7.2, Albumin 3.5, Globulin 3.8, Albumin/Globulin Ratio 0.9 L 04/20/17 09:40: WBC 6.6 D, RBC 3.41 L, Hgb 10.8 L, Hct 33.3 L, MCV 97.7, MCH 31.7, MCHC 32.4, RDW 13.5, Plt Count 455 H, MPV 8.9 04/19/17 07:45: Sodium 137, Potassium 4.5, Chloride 103, Carbon Dioxide 29, Anion Gap 10, BUN 16, Creatinine 0.7, Est GFR ( Amer) > 60, Est GFR (Non- Af Amer) > 60, Random Glucose 100, Calcium 9.7, Total Bilirubin 0.2, AST 51 H D , ALT 31, Alkaline Phosphatase 73, Total Protein 8.3, Albumin 4.0, Globulin 4.2 , Albumin/Globulin Ratio 1.0 L 04/19/17 07:45: WBC 9.2, RBC 3.94, Hgb 12.5, Hct 38.9, MCV 98.7 D, MCH 31.7, MCHC 32.1, RDW 13.6, Plt Count 558 H, MPV 9.2 04/17/17 03:34: Urine Opiates Screen Negative, Urine Methadone Screen Negative, Ur Barbiturates Screen Negative, Ur Phencyclidine Scrn Negative, Ur Amphetamines Screen Negative, U Benzodiazepines Scrn Negative, U Oth Cocaine Metabols Positive H, U Cannabinoids Screen Positive H 04/17/17 03:34: Urine Color Yellow, Urine Appearance Clear, Urine pH 7.0, Ur Specific [place] 1.010, Urine Protein Negative, Urine Glucose (UA) Negative, Urine Ketones Negative, Urine Blood Trace-lysed H, Urine Nitrate Negative, Urine Bilirubin Negative, Urine Urobilinogen 1.0 H, Ur Leukocyte Esterase Small H, Urine RBC 0 - 2, Urine WBC 1 - 3, Ur Epithelial Cells 0 - 2, Amorphous Sediment Few, Urine Bacteria Few, Urine HCG, Qual Negative 04/16/17 22:50: Alcohol, Quantitative 20 H 04/16/17 22:50: Salicylates < 1 L, Acetaminophen < 10.0 L 04/16/17 22:50: Sodium 135, Potassium 3.4 L, Chloride 100, Carbon Dioxide 24, Anion Gap 15, BUN 15, Creatinine 0.9, Est GFR ( Amer) > 60, Est GFR (Non- Af Amer) > 60, Random Glucose 82, Calcium 9.3, Total Bilirubin 0.3, AST 31, ALT 32, Alkaline Phosphatase 75, Total Protein 7.8, Albumin 3.9, Globulin 3.9, Albumin/Globulin Ratio 1.0 L 04/16/17 22:50: WBC 8.4 D, RBC 3.44 L, Hgb 10.9 L, Hct 32.6 L, MCV 94.8, MCH 31.7, MCHC 33.4, RDW 13.0, Plt Count 586 H, MPV 8.8, Gran % 66.4, Lymph % (Auto ) 24.5, [place] % (Auto) 7.5 H, Eos % (Auto) 1.0 L, Baso % (Auto) 0.6, Gran # 5.58 , Lymph # 2.1, [place] # 0.6, Eos # 0.1, Baso # 0.05 Vital Signs Temp Pulse Pulse Resp BP Pulse Ox 04/20/17 06:56 97.9 F 80 20 126/85 04/19/17 07:37 97.9 F 102 H 20 116/75 04/17/17 11:16 72 16 04/17/17 05:29 93 H 18 112/62 98 04/17/17 03:29 92 H 18 114/63 98 04/17/17 01:29 95 H 18 116/64 98 04/16/17 23:29 98 H 20 115/65 97 04/16/17 21:27 126 H 24 114/62 97 Temp Pulse Resp BP Pulse Ox 97.6 F 76 20 124/78 98 04/21/17 07:01 04/21/17 07:01 04/21/17 07:01 04/21/17 07:01 04/17/17 05:29 Temp Pulse Resp BP Pulse Ox 97.3 F L 103 H 20 118/72 98 04/22/17 07:43 04/22/17 16:09 04/22/17 07:43 04/22/17 16:09 04/17/17 05:29 DSM 5 Symptoms Update: shortly pt is 47yo female with history of Schizoaffective Disorder, Anxiety, Borderline Personality Disorder, h/o polysubstance abuse and dependence (crack, cocaine, MJA), multiple psychiatric admissions-most recently was in this facility February 2017, noncompliance with medications and follow up apps, pt came to the ED of [facility] and tegretol who was admitted to our psychiatric unit for depression, SI and derogatory hallucinations in the context of crack/cocaine and MJA use. pt was not able to contract for safety, needed further evaluation and stabilization. in the ED "I am tired of this f* world", "I do not like me", and "I am killing myself with drugs". pt was seen and examined today in her room, pt has some positive changes, no need IMs PRN, pt is more pleasant, but pt still psychotic, lous at times, but impulses are better controlled. pt still hears voices, but denied any tactile hallucinations. pt tolerates meds well, no side effects observed or reported, AIMS 0, no EPS. Diagnostic Results: schizoaffective d/o panic disorder cannabis dependence borderline personality d/o r/o antisocial personality disorder Medication Change: Yes (trazodone for insomnia, colace) Medical Record Reviewed: Yes Consults ordered or reviewed: medical consult appreciated pt has UTI cipro started Mental Status Examination - Cognitive Function Orientation: Person Attention: WNL Concentration: Poor Association: Loose - Mood Mood: Depressed ("I feel little better") - Affect Affect: Constricted, Flat, Other (labile, emotional) - Formal Thought Process Formal Thought Process: Hallucinations ("I hear voices"), Delusions, Paranoia ( pt has impression that everyone hates her), Loosening of associations - Suicidal Ideation Suicidal Ideation: No - Homicidal Ideation Homicidal Ideation: No Goal/Treatment Plan - Goal/Treatment Plan Need for Continued Stay: Remain at risks for inpatient hospitalization, Severe depression anxiety, Discharge may exacerbated symptoms, Severe functional impairment Progress Toward Problem(s) and Goals/Treatment Plan: Milieu/structure/supportive therapy Medical consult was called SW consultation for discharge plan and social issues Med management Nicotine patch seroquel 300mg po amhs for psychosis klonopin 0.5mg po tid scheduled for anxiety neurontin 600mg po tid for cravings ambien 10mg po hs for insomnia prn trazodone 100mg po hs prnfor insomnia PRN meds Haldol/benadryl/ativan Family involvement Follow up on labs Will monitor closely Pt was educated about risk/benefits and alternatives of medications, coping strategies (safety plan, suicide prevention), relapse prevention, importance of follow up with psychiatrist and therapist, stay away from drugs/alcohol/smoking Estimated Date of D/C: 04/30/17
[2017-04-23] MEDS: DiphenhydrAMINE 50 mg/ml Inj IM PRN ×2 (06:20→14:17)
[2017-04-23] MEDS: Multivitamin With Minerals Tab PO SCH (09:56)
[2017-04-23] MEDS: POLYETHYLENE GLYCOL 3350 17 GM/Dose PACKET PO SCH (13:08)
--- NOTE | 2017-04-23 15:28 | PN ---
DATE: 04/23/2017 SUBJECTIVE: She is quite constipated, little bit of stomach upset, and the Colace has been cut and I am going to add MiraLax. He is on Ambien, Ativan, Benadryl, Cipro for UTI, Colace, Desyrel, Haldol, Klonopin, Nicoderm, Seroquel, Feratab, and Tylenol. OBJECTIVE: VITAL SIGNS: 97.3 temp, 96 pulse, 118/72 blood pressure, 20 respiratory rate. HEENT: Head is atraumatic, normocephalic. HEART: Regular rate. LUNGS: Clear to auscultation with decreased breath sounds. ABDOMEN: Soft, full, distended, mildly decreased bowel sounds, nontender. No guarding, no rebound. EXTREMITIES: No edema. LABORATORY DATA: Last labs on the were okay. I encouraged her to drink more water, then add MiraLax. We will see how she does, some Cipro for urinary tract infection. I will continue with aggressive treatment and care on Bárbara Courtney. Nate Smiley DO
--- NOTE | 2017-04-23 16:36 | PCM.PYCHPN ---
Psychiatric Progress Note - Psychiatric Progress Note Patient seen today, length of contact: 30min Patient Chief Complaint: "you have to promise me that I will be accepted in [facility]" Problems Identified/Issues Discussed: Suicide/ homicide prevention, past psychiatric h/o, current psychiatric symptoms , medical problems, risk/benefits and alternatives of medications, medications compliance, coping strategies, substance abuse h/o, relapse prevention, importance of follow up with psychiatrist and therapist, discharge plan. Medical Problems: UTI abx started pt c/o constipation, colace started Diagnostic Results: 04/20/17 09:40 04/20/17 09:40 Lab Results 04/20/17 09:40: TSH 3rd Generation 1.56 04/20/17 09:40: Sodium 138, Potassium 3.7, Chloride 106, Carbon Dioxide 23, Anion Gap 12, BUN 18, Creatinine 0.6 L, Est GFR ( Amer) > 60, Est GFR ( Non-Af Amer) > 60, Random Glucose 151 H, Calcium 9.2, Total Bilirubin 0.1 L, AST 48 H, ALT 30, Alkaline Phosphatase 73, Total Protein 7.2, Albumin 3.5, Globulin 3.8, Albumin/Globulin Ratio 0.9 L 04/20/17 09:40: WBC 6.6 D, RBC 3.41 L, Hgb 10.8 L, Hct 33.3 L, MCV 97.7, MCH 31.7, MCHC 32.4, RDW 13.5, Plt Count 455 H, MPV 8.9 04/19/17 07:45: Sodium 137, Potassium 4.5, Chloride 103, Carbon Dioxide 29, Anion Gap 10, BUN 16, Creatinine 0.7, Est GFR ( Amer) > 60, Est GFR (Non- Af Amer) > 60, Random Glucose 100, Calcium 9.7, Total Bilirubin 0.2, AST 51 H D , ALT 31, Alkaline Phosphatase 73, Total Protein 8.3, Albumin 4.0, Globulin 4.2 , Albumin/Globulin Ratio 1.0 L 04/19/17 07:45: WBC 9.2, RBC 3.94, Hgb 12.5, Hct 38.9, MCV 98.7 D, MCH 31.7, MCHC 32.1, RDW 13.6, Plt Count 558 H, MPV 9.2 04/17/17 03:34: Urine Opiates Screen Negative, Urine Methadone Screen Negative, Ur Barbiturates Screen Negative, Ur Phencyclidine Scrn Negative, Ur Amphetamines Screen Negative, U Benzodiazepines Scrn Negative, U Oth Cocaine Metabols Positive H, U Cannabinoids Screen Positive H 04/17/17 03:34: Urine Color Yellow, Urine Appearance Clear, Urine pH 7.0, Ur Specific [place] 1.010, Urine Protein Negative, Urine Glucose (UA) Negative, Urine Ketones Negative, Urine Blood Trace-lysed H, Urine Nitrate Negative, Urine Bilirubin Negative, Urine Urobilinogen 1.0 H, Ur Leukocyte Esterase Small H, Urine RBC 0 - 2, Urine WBC 1 - 3, Ur Epithelial Cells 0 - 2, Amorphous Sediment Few, Urine Bacteria Few, Urine HCG, Qual Negative 04/16/17 22:50: Alcohol, Quantitative 20 H 04/16/17 22:50: Salicylates < 1 L, Acetaminophen < 10.0 L 04/16/17 22:50: Sodium 135, Potassium 3.4 L, Chloride 100, Carbon Dioxide 24, Anion Gap 15, BUN 15, Creatinine 0.9, Est GFR ( Amer) > 60, Est GFR (Non- Af Amer) > 60, Random Glucose 82, Calcium 9.3, Total Bilirubin 0.3, AST 31, ALT 32, Alkaline Phosphatase 75, Total Protein 7.8, Albumin 3.9, Globulin 3.9, Albumin/Globulin Ratio 1.0 L 04/16/17 22:50: WBC 8.4 D, RBC 3.44 L, Hgb 10.9 L, Hct 32.6 L, MCV 94.8, MCH 31.7, MCHC 33.4, RDW 13.0, Plt Count 586 H, MPV 8.8, Gran % 66.4, Lymph % (Auto ) 24.5, [place] % (Auto) 7.5 H, Eos % (Auto) 1.0 L, Baso % (Auto) 0.6, Gran # 5.58 , Lymph # 2.1, [place] # 0.6, Eos # 0.1, Baso # 0.05 Vital Signs Temp Pulse Pulse Resp BP Pulse Ox 04/20/17 06:56 97.9 F 80 20 126/85 04/19/17 07:37 97.9 F 102 H 20 116/75 04/17/17 11:16 72 16 04/17/17 05:29 93 H 18 112/62 98 04/17/17 03:29 92 H 18 114/63 98 04/17/17 01:29 95 H 18 116/64 98 04/16/17 23:29 98 H 20 115/65 97 04/16/17 21:27 126 H 24 114/62 97 Temp Pulse Resp BP Pulse Ox 97.6 F 76 20 124/78 98 04/21/17 07:01 04/21/17 07:01 04/21/17 07:01 04/21/17 07:01 04/17/17 05:29 Temp Pulse Resp BP Pulse Ox 97.3 F L 103 H 20 118/72 98 04/22/17 07:43 04/22/17 16:09 04/22/17 07:43 04/22/17 16:09 04/17/17 05:29 DSM 5 Symptoms Update: shortly pt is 47yo female with history of Schizoaffective Disorder, Anxiety, Borderline Personality Disorder, h/o polysubstance abuse and dependence (crack, cocaine, MJA), multiple psychiatric admissions-most recently was in this facility February 2017, noncompliance with medications and follow up apps, pt came to the ED of iraida Moreau who was admitted to our psychiatric unit for depression, SI and derogatory hallucinations in the context of crack/cocaine and MJA use. pt was not able to contract for safety, needed further evaluation and stabilization. in the ED "I am tired of this f* world", "I do not like me", and "I am killing myself with drugs". pt was seen and examined today at the treatment team room, pt was evaluated by SW earlier, pt was impulsive, cursing, pt had short temper, pt has childlike demeanor, tendency of throwing tantrums if her needs are not addressed immediately. pt said that she wants to go to [facility] rehab pt was educated about importance to have a back up plan, pt agreed, then smiled. pt seems to be in her manic stage, but it is improving, pt also has psychosis, but was able to ignore auditory hallucinations. pt tolerates meds well, no side effects observed or reported, AIMS 0, no EPS. Diagnostic Results: schizoaffective d/o panic disorder cannabis dependence borderline personality d/o r/o antisocial personality disorder Medication Change: Yes (neurontin increased, klonopin PRN) Medical Record Reviewed: Yes Consults ordered or reviewed: medical consult appreciated pt has UTI john started Mental Status Examination - Cognitive Function Orientation: Person Attention: WNL Concentration: Poor Association: Loose - Mood Mood: Depressed ("I feel little better") - Affect Affect: Constricted, Flat, Other (labile, emotional) - Formal Thought Process Formal Thought Process: Hallucinations ("I hear voices"), Delusions, Paranoia ( pt has impression that everyone hates her), Loosening of associations - Suicidal Ideation Suicidal Ideation: No - Homicidal Ideation Homicidal Ideation: No Goal/Treatment Plan - Goal/Treatment Plan Need for Continued Stay: Remain at risks for inpatient hospitalization, Severe depression anxiety, Discharge may exacerbated symptoms, Severe functional impairment Progress Toward Problem(s) and Goals/Treatment Plan: Milieu/structure/supportive therapy Medical consult was called SW consultation for discharge plan and social issues Med management Nicotine patch seroquel 300mg po amhs for psychosis klonopin 0.5mg po tid PRN for anxiety neurontin 800mg po tid for cravings ambien 10mg po hs for insomnia prn trazodone 100mg po hs prnfor insomnia PRN meds Haldol/benadryl/ativan Family involvement Follow up on labs Will monitor closely Pt was educated about risk/benefits and alternatives of medications, coping strategies (safety plan, suicide prevention), relapse prevention, importance of follow up with psychiatrist and therapist, stay away from drugs/alcohol/smoking Estimated Date of D/C: 04/30/17
[2017-04-23] MEDS ORDERED: Alum-Mag Hydrox-Simethicone Susp (30 mL) PO PRN (20:32)
[2017-04-23] MEDS: Magnesium Hydroxide Susp 30 ml UD PO PRN (21:24)
[2017-04-24] MEDS: POLYETHYLENE GLYCOL 3350 17 GM/Dose PACKET PO SCH ×2 (08:43→16:10)
[2017-04-24] MEDS: Multivitamin With Minerals Tab PO SCH (08:43)
[2017-04-24] MEDS: DiphenhydrAMINE 50 mg/ml Inj IM PRN (13:25)
--- NOTE | 2017-04-24 14:51 | PCM.PYCHPN ---
Psychiatric Progress Note - Psychiatric Progress Note Patient seen today, length of contact: 30min Patient Chief Complaint: "this is the first day when I do not hear voices". Problems Identified/Issues Discussed: Suicide/ homicide prevention, past psychiatric h/o, current psychiatric symptoms , medical problems, risk/benefits and alternatives of medications, medications compliance, coping strategies, substance abuse h/o, relapse prevention, importance of follow up with psychiatrist and therapist, discharge plan. Medical Problems: UTI abx started pt c/o constipation, colace, lactulose stat Diagnostic Results: 04/20/17 09:40 04/20/17 09:40 Lab Results 04/20/17 09:40: TSH 3rd Generation 1.56 04/20/17 09:40: Sodium 138, Potassium 3.7, Chloride 106, Carbon Dioxide 23, Anion Gap 12, BUN 18, Creatinine 0.6 L, Est GFR ( Amer) > 60, Est GFR ( Non-Af Amer) > 60, Random Glucose 151 H, Calcium 9.2, Total Bilirubin 0.1 L, AST 48 H, ALT 30, Alkaline Phosphatase 73, Total Protein 7.2, Albumin 3.5, Globulin 3.8, Albumin/Globulin Ratio 0.9 L 04/20/17 09:40: WBC 6.6 D, RBC 3.41 L, Hgb 10.8 L, Hct 33.3 L, MCV 97.7, MCH 31.7, MCHC 32.4, RDW 13.5, Plt Count 455 H, MPV 8.9 04/19/17 07:45: Sodium 137, Potassium 4.5, Chloride 103, Carbon Dioxide 29, Anion Gap 10, BUN 16, Creatinine 0.7, Est GFR ( Amer) > 60, Est GFR (Non- Af Amer) > 60, Random Glucose 100, Calcium 9.7, Total Bilirubin 0.2, AST 51 H D , ALT 31, Alkaline Phosphatase 73, Total Protein 8.3, Albumin 4.0, Globulin 4.2 , Albumin/Globulin Ratio 1.0 L 04/19/17 07:45: WBC 9.2, RBC 3.94, Hgb 12.5, Hct 38.9, MCV 98.7 D, MCH 31.7, MCHC 32.1, RDW 13.6, Plt Count 558 H, MPV 9.2 04/17/17 03:34: Urine Opiates Screen Negative, Urine Methadone Screen Negative, Ur Barbiturates Screen Negative, Ur Phencyclidine Scrn Negative, Ur Amphetamines Screen Negative, U Benzodiazepines Scrn Negative, U Oth Cocaine Metabols Positive H, U Cannabinoids Screen Positive H 04/17/17 03:34: Urine Color Yellow, Urine Appearance Clear, Urine pH 7.0, Ur Specific [place] 1.010, Urine Protein Negative, Urine Glucose (UA) Negative, Urine Ketones Negative, Urine Blood Trace-lysed H, Urine Nitrate Negative, Urine Bilirubin Negative, Urine Urobilinogen 1.0 H, Ur Leukocyte Esterase Small H, Urine RBC 0 - 2, Urine WBC 1 - 3, Ur Epithelial Cells 0 - 2, Amorphous Sediment Few, Urine Bacteria Few, Urine HCG, Qual Negative 04/16/17 22:50: Alcohol, Quantitative 20 H 04/16/17 22:50: Salicylates < 1 L, Acetaminophen < 10.0 L 04/16/17 22:50: Sodium 135, Potassium 3.4 L, Chloride 100, Carbon Dioxide 24, Anion Gap 15, BUN 15, Creatinine 0.9, Est GFR ( Amer) > 60, Est GFR (Non- Af Amer) > 60, Random Glucose 82, Calcium 9.3, Total Bilirubin 0.3, AST 31, ALT 32, Alkaline Phosphatase 75, Total Protein 7.8, Albumin 3.9, Globulin 3.9, Albumin/Globulin Ratio 1.0 L 04/16/17 22:50: WBC 8.4 D, RBC 3.44 L, Hgb 10.9 L, Hct 32.6 L, MCV 94.8, MCH 31.7, MCHC 33.4, RDW 13.0, Plt Count 586 H, MPV 8.8, Gran % 66.4, Lymph % (Auto ) 24.5, [place] % (Auto) 7.5 H, Eos % (Auto) 1.0 L, Baso % (Auto) 0.6, Gran # 5.58 , Lymph # 2.1, [place] # 0.6, Eos # 0.1, Baso # 0.05 Vital Signs Temp Pulse Pulse Resp BP Pulse Ox 04/20/17 06:56 97.9 F 80 20 126/85 04/19/17 07:37 97.9 F 102 H 20 116/75 04/17/17 11:16 72 16 04/17/17 05:29 93 H 18 112/62 98 04/17/17 03:29 92 H 18 114/63 98 04/17/17 01:29 95 H 18 116/64 98 04/16/17 23:29 98 H 20 115/65 97 04/16/17 21:27 126 H 24 114/62 97 Temp Pulse Resp BP Pulse Ox 97.6 F 76 20 124/78 98 04/21/17 07:01 04/21/17 07:01 04/21/17 07:01 04/21/17 07:01 04/17/17 05:29 Temp Pulse Resp BP Pulse Ox 97.3 F L 103 H 20 118/72 98 04/22/17 07:43 04/22/17 16:09 04/22/17 07:43 04/22/17 16:09 04/17/17 05:29 DSM 5 Symptoms Update: shortly pt is 47yo female with history of Schizoaffective Disorder, Anxiety, Borderline Personality Disorder, h/o polysubstance abuse and dependence (crack, cocaine, MJA), multiple psychiatric admissions-most recently was in this facility February 2017, noncompliance with medications and follow up apps, pt [facility] who was admitted to our psychiatric unit for depression, SI and derogatory hallucinations in the context of crack/cocaine and MJA use. pt was not able to contract for safety, needed further evaluation and stabilization. in the ED "I am tired of this f* world", "I do not like me", and "I am killing myself with drugs". pt was seen and examined today at the treatment team, pt is irritable, mood swings, pt was agitated yesterday, was medicated with Haldol+benadryl+Ativan (), pt was apologetic today, said that she cannot control herself and her impulses. pt asked about meds adjustment. pt is intrusive, childlike demeanor. pt overall is improving slowly. pt denied any psychotic symptoms, said "this is the first day when I do not hear voices". pt tolerates meds well, no side effects observed or reported, AIMS 0, no EPS. Diagnostic Results: schizoaffective d/o panic disorder cannabis dependence borderline personality d/o r/o antisocial personality disorder Medication Change: Yes (seroquel increased) Medical Record Reviewed: Yes Mental Status Examination - Cognitive Function Orientation: Person Attention: WNL Concentration: Poor Association: Loose - Mood Mood: Depressed ("I feel little better") - Affect Affect: Constricted, Other (labile, emotional) - Formal Thought Process Formal Thought Process: Hallucinations (denied), Delusions, Paranoia (better), Loosening of associations - Suicidal Ideation Suicidal Ideation: No - Homicidal Ideation Homicidal Ideation: No Goal/Treatment Plan - Goal/Treatment Plan Need for Continued Stay: Remain at risks for inpatient hospitalization, Severe depression anxiety, Discharge may exacerbated symptoms, Severe functional impairment Progress Toward Problem(s) and Goals/Treatment Plan: Milieu/structure/supportive therapy Medical consult was called SW consultation for discharge plan, pt wants to go to [facility] inpatient rehab Med management Nicotine patch seroquel 200mg po bid and 300hs for psychosis klonopin 0.5mg po tid PRN for anxiety neurontin 800mg po tid for cravings ambien 10mg po hs for insomnia prn trazodone 100mg po hs prnfor insomnia PRN meds Haldol/benadryl/ativan Family involvement Follow up on labs Will monitor closely Pt was educated about risk/benefits and alternatives of medications, coping strategies (safety plan, suicide prevention), relapse prevention, importance of follow up with psychiatrist and therapist, stay away from drugs/alcohol/smoking Estimated Date of D/C: 04/30/17
--- NOTE | 2017-04-24 15:43 | PN ---
DATE: SUBJECTIVE: She is on the psychiatric floor. I think she is getting a bit better with Psychiatry part of it. She is also moving her bowels, now that she is on MiraLax. Now she is complaining of her feet being very dry. She wants them clean. I will order some ammonium lactate, also Ambien, Ativan, Benadryl, Cipro for UTI, Colace, Desyrel, Haldol, Klonopin, milk of magnesia, Maalox, MiraLax, Neurontin, Nicoderm, Seroquel, Thera-Tabs and Tylenol. She is eating okay, going to the bathroom better. PHYSICAL EXAMINATION: VITAL SIGNS: 97.3 temperature, 96 pulse, 106/71 blood pressure, 20 respiratory rate. HEENT: Head is atraumatic, normocephalic. HEART: Regular rate with decreased breath sounds but clear. ABDOMEN: Soft, less distended. Positive bowel sounds. Nontender. EXTREMITIES: No edema. The feet have dry skin. I will order ammonium lactate for the skin twice a day on the feet. Continue to drink a lot of water, participate in groups. Hopefully she will do well on account of these changes. Nate Smiley DO
[2017-04-24] MEDS: Ammonium Lactate 12% Lotion (225 g) EXT SCH (16:09)
--- NOTE | 2017-04-24 16:18 | PCM.BM ---
Treatment Plan Problems - Problems identified on initial assessmt agitated/aggressive Date Initiated: 04/17/17 Time Initiated: 16:30 Assessment reference: NA Status: Active Priority: 1 altered sleep pattern Date Initiated: 04/17/17 Time Initiated: 16:30 Assessment reference: NA Status: Active Priority: 2 high risk injury Date Initiated: 04/17/17 Time Initiated: 16:30 Assessment reference: NA Status: Active altered thought process Date Initiated: 04/17/17 Time Initiated: 16:55 Assessment reference: NA Status: Active medication non adherence Date Initiated: 04/17/17 Time Initiated: 16:56 Assessment reference: NA Status: Active Treatment assets and liabiliti Patient Assests: self-reliant, ADL independent, negotiates basic needs Patient Liabilities: live alone, financial problems, poor support system, substance abuse - Milieu Protocol Maintain good personal hygiene: every shift Encourage regular showers, every shift Remind patient to perform daily oral care, every shift Assist patient to perform ADL's Conduct patient checks and document Observation sheet: Q15 minutes Maintain personal safety: every shift Educate patient to report safety concerns to staff, every shift Monitor environment for contraband/sharps Medication safety: Monitor for expected outcome, potential side effects: every shift, Assess barriers to learning: every shift, Assess readiness for medication education: every shift Milieu Narrative: Milieu/structure/supportive therapy Medical consult was called SW consultation for discharge plan, pt wants to go to [facility] rehab Med management Nicotine patch seroquel 200mg po bid and 300hs for psychosis klonopin 0.5mg po tid PRN for anxiety neurontin 800mg po tid for cravings ambien 10mg po hs for insomnia prn trazodone 100mg po hs prnfor insomnia PRN meds Haldol/benadryl/ativan Family involvement Follow up on labs Will monitor closely Pt was educated about risk/benefits and alternatives of medications, coping strategies (safety plan, suicide prevention), relapse prevention, importance of follow up with psychiatrist and therapist, stay away from drugs/alcohol/smoking Family Contact Family involvement: Famliy/SO not involved Family contact: Patient declines to allow family contact at present Discharge/Continuing Care - Education Needs Education Needs: Patient Medication, Patient Diagnosis/Disease Process, Patient Coping Skills, Patient Personal Hygiene/Grooming - Discharge Discharge Criteria: Tolerates medication w/o severe side effects, Free of Suicidal thoughts, Free of Homicidal thoughts, Free of paranoid thoughts, Free of agitation, Normal sleep pattern, Ability to care for self - Treatment Team Participation Patient/Family/SO Statement: Milieu/structure/supportive therapy Medical consult was called SW consultation for discharge plan, pt wants to go to [facility] inpatient rehab Med management Nicotine patch seroquel 200mg po bid and 300hs for psychosis klonopin 0.5mg po tid PRN for anxiety neurontin 800mg po tid for cravings ambien 10mg po hs for insomnia prn trazodone 100mg po hs prnfor insomnia PRN meds Haldol/benadryl/ativan Family involvement Follow up on labs Will monitor closely Pt was educated about risk/benefits and alternatives of medications, coping strategies (safety plan, suicide prevention), relapse prevention, importance of follow up with psychiatrist and therapist, stay away from drugs/alcohol/smoking Treatment Plan Review - Problem agitated/aggressive Time Initiated: 16:30 altered sleep pattern Time Initiated: 16:30 high risk injury Time Initiated: 16:30 altered thought process Time Initiated: 16:55 medication non adherence Time Initiated: 16:56
[2017-04-24] MEDS: Magnesium Hydroxide Susp 30 ml UD PO PRN (20:31)
--- NOTE | 2017-04-25 09:01 | CP.PCM.CON ---
<Maday Milian - Last Filed: 04/25/17 08:56> History of Present Illness - History of Present Illness History of Present Illness: Podiatry consult note for Dr. Dobson 47 year old female with PMHx including Schizoaffective Disorder, Anxiety was seen at bedside for complaint of dry skin on the bottom of her feet. Patient states that she has had dry skin on the bottom of her feet for a while and it is painful to walk. She admits that yesterday she had lotion applied to her feet but states it has not helped yet. She denies any n/v/f/c/sob/cp. Past Patient History - Infectious Disease Hx of Infectious Diseases: None - Tetanus Immunizations Tetanus Immunization: Unknown - Past Social History Smoking Status: Heavy Smoker > 10 Cigarettes Daily - CARDIAC Hx Cardiac Disorders: No Hx Hypertension: No - PULMONARY Hx Respiratory Disorders: No Hx Tuberculosis: No - NEUROLOGICAL Hx Neurological Disorder: No HX Cerebrovascular Accident: No Hx Seizures: No - HEENT Hx HEENT Problems: No - RENAL Hx Chronic Kidney Disease: No - ENDOCRINE/METABOLIC Hx Endocrine Disorders: No - HEMATOLOGICAL/ONCOLOGICAL Hx Blood Disorders: No Hx Cancer: No - INTEGUMENTARY Hx Dermatological Problems: No - MUSCULOSKELETAL/RHEUMATOLOGICAL Hx Musculoskeletal Disorders: No Hx Falls: No - GASTROINTESTINAL Hx Gastrointestinal Disorders: No - GENITOURINARY/GYNECOLOGICAL Hx Sexually Transmitted Disorders: No Hx Urinary Tract Infection: Yes - PSYCHIATRIC Hx Anxiety: Yes Hx Bipolar Disorder: Yes Hx Depression: Yes Hx Substance Use: Yes - SURGICAL HISTORY Hx Surgeries: Yes Other/Comment: Left index surgery - ANESTHESIA Hx Anesthesia: No Meds Allergies/Adverse Reactions: Allergies Allergy/AdvReac Type Severity Reaction Status Date / Time Penicillins Allergy RASH Verified 02/09/16 03:17 - Medications Medications: Current Medications Acetaminophen (Tylenol 325mg Tab) 650 mg PO Q6H PRN PRN Reason: Pain, moderate (4-7) Last Admin: 04/24/17 20:25 Dose: 650 mg Al Hydrox/Mg Hydrox/Simethicone (Maalox Plus 30 Ml) 30 ml PO DAILY PRN PRN Reason: Upset Stomach Ciprofloxacin (Cipro) 500 mg PO Q12 NINA PRN Reason: Protocol Stop: 04/27/17 06:01 Last Admin: 04/25/17 05:40 Dose: 500 mg Clonazepam (Klonopin) 0.5 mg PO TID PRN; Protocol PRN Reason: Anxiety Diphenhydramine HCl (Benadryl) 50 mg IM Q6H PRN PRN Reason: Allergy symptoms Last Admin: 04/24/17 13:25 Dose: 50 mg Diphenhydramine HCl (Benadryl) 50 mg PO Q6 PRN PRN Reason: Agitation Last Admin: 04/24/17 23:15 Dose: 50 mg Docusate Sodium (Colace) 100 mg PO BID [facility] Last Admin: 04/24/17 16:29 Dose: 100 mg Gabapentin (Neurontin) 800 mg PO TID NINA PRN Reason: Protocol Last Admin: 04/24/17 18:41 Dose: 800 mg Haloperidol (Haldol) 5 mg PO Q6 PRN; Protocol PRN Reason: Agitation Last Admin: 04/24/17 23:15 Dose: 5 mg Haloperidol Lactate (Haldol) 5 mg IM Q6 PRN; Protocol PRN Reason: Agitation Last Admin: 04/24/17 13:23 Dose: 5 mg Lactic Acid (Lac-Hydrin 12% Lotion (225 G)) 0 gm EXT BID [facility] Last Admin: 04/24/17 16:09 Dose: 1 applic Lorazepam (Ativan) 2 mg IM Q6H PRN; Protocol PRN Reason: Agitation Last Admin: 04/24/17 13:25 Dose: 2 mg Lorazepam (Ativan) 2 mg PO Q6 PRN; Protocol PRN Reason: Agitation Last Admin: 04/24/17 23:15 Dose: 2 mg Magnesium Hydroxide (Milk Of Magnesia) 30 ml PO DAILY PRN PRN Reason: Constipation Last Admin: 04/24/17 20:31 Dose: 30 ml Multivitamins/Minerals (Therapeutic-M Tab) 1 tab PO 0800 [facility] Last Admin: 04/24/17 08:43 Dose: 1 tab Nicotine (Nicoderm Cq) 1 patch TD DAILY [facility] Last Admin: 04/24/17 08:42 Dose: 1 patch Polyethylene Glycol (Miralax) 17 gm PO BID [facility] Last Admin: 04/24/17 16:10 Dose: Not Given Quetiapine Fumarate (Seroquel) 300 mg PO HS [facility] PRN Reason: Protocol Last Admin: 04/24/17 21:10 Dose: 300 mg Quetiapine Fumarate (Seroquel) 200 mg PO BID [facility] PRN Reason: Protocol Last Admin: 04/24/17 16:29 Dose: 200 mg Sodium Chloride ([place] Nasal [place]) 0 ml NS Q4H PRN PRN Reason: Nasal congestion Last Admin: 04/25/17 05:57 Dose: 2 spr Trazodone HCl (Desyrel) 100 mg PO HS PRN PRN Reason: Insomnia Last Admin: 04/25/17 00:27 Dose: 100 mg Zolpidem Tartrate (Ambien) 10 mg PO HS PRN; Protocol PRN Reason: Insomnia Last Admin: 04/24/17 21:10 Dose: 10 mg Physical Exam - Constitutional Appears: Well, Non-toxic, No Acute Distress - Extremities Exam Additional comments: Bilateral lower extremity focused exam: Vasc:DP and PT pulses palpable b/l 2/4. CFT < 3 seconds to all digits b/l. Skin temperature warm to cool from proximal to distal b/l. Neuro:Gross sensation intact b/l. Ortho:No tenderness on palpation to lower extremities b/l. Derm:Skin on the plantar aspect of feet b/l are diffusely xerotic. No open lesions, no erythema, no calor, no signs of infection noted. Nails 1-10 are trimmed to a hygienic length. Webspaces 1-4 b/l are clean, dry, intact. - Neurological Exam Neurological exam: Alert, Oriented x3 - Psychiatric Exam Psychiatric exam: Normal Affect, Normal Mood Results - Vital Signs Recent Vital Signs: Last Vital Signs Temp 97.3 F L 04/22/17 07:43 Pulse 98 H 04/23/17 16:00 Resp 20 04/22/17 07:43 BP 99/58 L 04/23/17 16:00 Pulse Ox 98 04/17/17 05:29 - Labs Result Diagrams: 04/20/17 09:40 04/20/17 09:40 Assessment & Plan - Assessment and Plan (Free Text) Assessment: 47 year old female with plantar foot xerosis bilateral Plan: patient examined and evaluated discussed with attending, Dr. Dobson chart, labs, vitals reviewed patient to continue to use lac-hydrin topical lotion BID, discussed with patient that she will need many days of using lac-hydrin to help soften her skin thank you for allowing us to participate in the care of your patient podiatry will continue to follow patient while in house <BronsonShimamyriam - Last Filed: 04/28/17 11:34> Meds - Medications Medications: Current Medications Acetaminophen (Tylenol 325mg Tab) 650 mg PO Q6H PRN PRN Reason: Pain, moderate (4-7) Last Admin: 04/24/17 20:25 Dose: 650 mg Al Hydrox/Mg Hydrox/Simethicone (Maalox Plus 30 Ml) 30 ml PO DAILY PRN PRN Reason: Upset Stomach Clonazepam (Klonopin) 0.5 mg PO BID PRN; Protocol PRN Reason: Anxiety Diphenhydramine HCl (Benadryl) 50 mg IM Q6H PRN PRN Reason: Allergy symptoms Last Admin: 04/27/17 00:35 Dose: 50 mg Diphenhydramine HCl (Benadryl) 50 mg PO Q6 PRN PRN Reason: Agitation Last Admin: 04/27/17 21:09 Dose: 50 mg Docusate Sodium (Colace) 100 mg PO BID [facility] Last Admin: 04/28/17 08:13 Dose: 100 mg Gabapentin (Neurontin) 800 mg PO TID [facility] PRN Reason: Protocol Last Admin: 04/28/17 08:13 Dose: 800 mg Haloperidol (Haldol) 5 mg PO Q6 PRN; Protocol PRN Reason: Agitation Last Admin: 04/27/17 21:09 Dose: 5 mg Haloperidol Lactate (Haldol) 5 mg IM Q6 PRN; Protocol PRN Reason: Agitation Last Admin: 04/27/17 00:36 Dose: 5 mg Hydroxyzine Pamoate (Vistaril) 50 mg PO Q8 PRN; Protocol PRN Reason: Anxiety Lactic Acid (Lac-Hydrin 12% Lotion (225 G)) 0 gm EXT BID [facility] Last Admin: 04/28/17 08:14 Dose: 1 applic Lactulose (Enulose) 20 gm PO HS [facility] Last Admin: 04/27/17 21:09 Dose: 20 gm Lorazepam (Ativan) 2 mg IM Q6H PRN; Protocol PRN Reason: Agitation Last Admin: 04/27/17 00:35 Dose: 2 mg Lorazepam (Ativan) 2 mg PO Q6 PRN; Protocol PRN Reason: Agitation Last Admin: 04/27/17 21:09 Dose: 2 mg Magnesium Hydroxide (Milk Of Magnesia) 30 ml PO DAILY PRN PRN Reason: Constipation Last Admin: 04/24/17 20:31 Dose: 30 ml Multivitamins/Minerals (Therapeutic-M Tab) 1 tab PO 0800 [facility] Last Admin: 04/28/17 08:13 Dose: 1 tab Nicotine (Nicoderm Cq) 1 patch TD DAILY [facility] Last Admin: 04/28/17 08:13 Dose: 1 patch Nystatin (Nystatin Oral Susp) 5 ml PO QID [facility] Last Admin: 04/28/17 08:13 Dose: 5 ml Quetiapine Fumarate (Seroquel) 200 mg PO BID [facility] PRN Reason: Protocol Last Admin: 04/28/17 08:13 Dose: 200 mg Quetiapine Fumarate (Seroquel) 400 mg PO HS NINA PRN Reason: Protocol Last Admin: 04/27/17 21:09 Dose: 400 mg Sodium Chloride ([place] Nasal [place]) 0 ml NS Q4H PRN PRN Reason: Nasal congestion Last Admin: 04/27/17 21:33 Dose: 2 spr Trazodone HCl (Desyrel) 100 mg PO HS PRN PRN Reason: Insomnia Last Admin: 04/27/17 22:57 Dose: 100 mg Zolpidem Tartrate (Ambien) 10 mg PO HS PRN; Protocol PRN Reason: Insomnia Last Admin: 04/28/17 03:08 Dose: 10 mg Results - Vital Signs Recent Vital Signs: Last Vital Signs Temp 98.0 F 04/28/17 07:31 Pulse 100 H 04/28/17 07:31 Resp 20 04/28/17 07:31 BP 125/62 04/28/17 07:31 Pulse Ox 100 04/27/17 07:10 - Labs Result Diagrams: 04/27/17 11:35 04/27/17 11:35 Labs: Laboratory Results - last 24 hr 04/27/17 04/27/17 04/27/17 11:35 11:35 11:35 WBC 8.3 D RBC 3.33 L Hgb 10.4 L Hct 32.5 L MCV 97.6 MCH 31.2 MCHC 32.0 RDW 13.6 Plt Count 446 MPV 8.8 Sodium 138 Potassium 4.5 Chloride 100 Carbon Dioxide 28 Anion Gap 15 BUN 26 H Creatinine 0.6 L Est GFR ( Amer) > 60 Est GFR (Non-Af Amer) > 60 Random Glucose 115 H Calcium 9.6 Total Bilirubin 0.2 AST 71 H D ALT 72 H Alkaline Phosphatase 75 Total Protein 7.5 Albumin 3.7 Globulin 3.7 Albumin/Globulin Ratio 1.0 L Amylase Lipase Urine Color Yellow Urine Appearance Clear Urine pH 7.0 Ur Specific [place] 1.010 Urine Protein Negative Urine Glucose (UA) Negative Urine Ketones Negative Urine Blood Negative Urine Nitrate Negative Urine Bilirubin Negative Urine Urobilinogen 0.2 Ur Leukocyte Esterase Negative 04/27/17 11:35 WBC RBC Hgb Hct MCV MCH MCHC RDW Plt Count MPV Sodium Potassium Chloride Carbon Dioxide Anion Gap BUN Creatinine Est GFR ( Amer) Est GFR (Non-Af Amer) Random Glucose Calcium Total Bilirubin AST ALT Alkaline Phosphatase Total Protein Albumin Globulin Albumin/Globulin Ratio Amylase 136 H Lipase 149 Urine Color Urine Appearance Urine pH Ur Specific [place] Urine Protein Urine Glucose (UA) Urine Ketones Urine Blood Urine Nitrate Urine Bilirubin Urine Urobilinogen Ur Leukocyte Esterase Attending/Attestation - Attestation I have personally seen and examined this patient.: Yes I have fully participated in the care of the patient.: Yes I have reviewed all pertinent clinical information: Yes
[2017-04-25] MEDS: Multivitamin With Minerals Tab PO SCH (09:05)
[2017-04-25] MEDS: Ammonium Lactate 12% Lotion (225 g) EXT SCH (09:08)
[2017-04-25] MEDS: POLYETHYLENE GLYCOL 3350 17 GM/Dose PACKET PO SCH (09:12)
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
--- NOTE | 2017-04-25 13:50 | PN ---
DATE: SUBJECTIVE: I saw her sitting on the floor in the hallway. She comes with a lot of request. She does not want to take the MiraLax, she wants a lactulose instead. She did move her bowels. She is eating well. She is trying to get better. She is participating. She has no chest pain or shortness breath and no abdominal pain. PHYSICAL EXAMINATION: VITAL SIGNS: She has 97.3 temperature, 96 pulse, 106/71 blood pressure, and 20 respiratory rate. HEENT: Head is atraumatic and normocephalic. Throat is moist. NECK: Supple. HEART: Regular rate. LUNGS: Clear to auscultation. GASTROINTESTINAL: Abdomen is soft. No distention. Positive bowel sounds. She moved her bowels. EXTREMITIES: No edema. MEDICATIONS: She is currently on Ambien, Ativan, Benadryl, Cipro, Colace, Desyrel, Haldol, Klonopin, Lac-Hydrin, Maalox, milk of magnesia, Neurontin, Nicoderm, [place] spray, Seroquel, Thera-Tabs and Tylenol. IMPRESSION AND PLAN: I discontinued her MiraLax, I make sure she gets lactulose on a daily schedule for the constipation. She had low potassium one-time she is constipated. She had drug abuse with cocaine, marijuana and alcohol. She has bipolar, dry skin and she has urinary tract infection. We will follow. Nate Smiley DO MTDYoni
[2017-04-25] MEDS: DiphenhydrAMINE 50 mg/ml Inj IM PRN (23:56)
[2017-04-26] MEDS: Ammonium Lactate 12% Lotion (225 g) EXT SCH ×2 (08:00→17:00)
--- NOTE | 2017-04-26 09:14 | PCM.PYCHPN ---
Psychiatric Progress Note - Psychiatric Progress Note Patient seen today, length of contact: 25 min Patient Chief Complaint: depressed Problems Identified/Issues Discussed: I reviewed recent notes and met with patient at bedside Patient has been labile , loud and disruptive on the unit. This morning she appears alvarez but showing better control than yesterday. She feels "all right" this morning, believes her mood is getting better but she is still "a little depressed". Affect continues to be anxious and brittle. Auditory hallucinations persist, voices telling her "to get the f*ck out of here and do drugs". She also "saw something" in the quiet room which scared her and caused her to leave the quiet room. She isn't responding to internal stimuli during my visit. Presently she denies discomfort, side effects or pain. Tolerating her medications, denies any major side effects but still complains of dry mouth. Staff notes report patient remains alvarez, disruptive and needs a lot of redirection. Patient still complaining of anxiety and hallucinations to staff. Received Haldol, Ativan, Benadryl po prn in the afternoon yesterday. Insight and judgment remains poor, impulse control is tenuous. Diagnostic Results: schizoaffective d/o panic disorder cannabis dependence borderline personality d/o r/o antisocial personality disorder Medication Change: Yes (seroquel increased) Medical Record Reviewed: Yes Mental Status Examination - Cognitive Function Orientation: Person Attention: WNL Concentration: Poor Association: Loose - Mood Mood: Depressed ("feel all right, still a little depressed") - Affect Affect: Constricted, Other (labile, emotional) - Formal Thought Process Formal Thought Process: Hallucinations (voices telling her "to get the f*ck out of here and do drugs" + VH), Delusions, Paranoia (better), Loosening of associations - Suicidal Ideation Suicidal Ideation: No - Homicidal Ideation Homicidal Ideation: No Goal/Treatment Plan - Goal/Treatment Plan Need for Continued Stay: Remain at risks for inpatient hospitalization, Severe depression anxiety, Discharge may exacerbated symptoms, Severe functional impairment Progress Toward Problem(s) and Goals/Treatment Plan: * c/w current tx and plan * Appreciate f/u by Dr. Smiley on 04/25/17~d/c'ing Miralax and starting lactulose * Appreciate Podiatry f/u by WILLIAM Milian/Dr. Dobson on 04/25/17 * Vitals reviewed and noted below: 04/22/17 04/22/17 04/23/17 07:43 16:09 16:00 Temperature 97.3 F L Pulse Rate 96 H 103 H 98 H Respiratory 20 Rate Blood Pressure 106/71 118/72 99/58 L 04/25/17 16:00 Temperature Pulse Rate 112 H Respiratory Rate Blood Pressure 101/68 * Prior weekend floor labs noted below: Laboratory Results - last 24 hr 04/19/17 04/19/17 07:45 07:45 WBC 9.2 RBC 3.94 Hgb 12.5 Hct 38.9 MCV 98.7 D MCH 31.7 MCHC 32.1 RDW 13.6 Plt Count 558 H MPV 9.2 Sodium 137 Potassium 4.5 Chloride 103 Carbon Dioxide 29 Anion Gap 10 BUN 16 Creatinine 0.7 Est GFR ( Amer) > 60 Est GFR (Non-Af Amer) > 60 Random Glucose 100 Calcium 9.7 Total Bilirubin 0.2 AST 51 H D ALT 31 Alkaline Phosphatase 73 Total Protein 8.3 Albumin 4.0 Globulin 4.2 Albumin/Globulin Ratio 1.0 L Estimated Date of D/C: 04/30/17
[2017-04-26] MEDS: Multivitamin With Minerals Tab PO SCH (09:44)
[2017-04-26] MEDS: DiphenhydrAMINE 50 mg/ml Inj IM PRN (14:00)
[2017-04-26] MEDS: Nystatin 100,000 Units/ml Oral Susp 5 ml UD PO SCH (17:43)
[2017-04-27] MEDS: DiphenhydrAMINE 50 mg/ml Inj IM PRN (00:35)
[2017-04-27 07:11] VITALS: O2SAT 100
--- NOTE | 2017-04-27 08:27 | PN ---
DATE: 04/26/2017 SUBJECTIVE: I saw Ms. Granger and she had multiple complaints and multiple issues. She tells me she has run out of ammonium lactate and to reorder it. She also tells me that something is coating her tongue. If there is a white coating over tongue, it could be thrush, I will give her some nystatin. She is currently on Ambien, Ativan, Benadryl, Cipro for UTI, Colace, Desyrel, lactulose for the constipation, Haldol, ammonium lactate for the dry skin, milk of magnesia, Neurontin, Nicoderm patch, [place] Nasal [place], Seroquel, multivitamin, and Tylenol. PHYSICAL EXAMINATION: VITAL SIGNS: She has a 97.3 temp, 112 pulse, 101/68 blood pressure, and 20 respiratory rate. HEENT: Head atraumatic and normocephalic. Throat has got a white coating over the tongue and the back of throat, could be thrush, we will see. HEART: Regular rate. LUNGS: Decreased breath sounds, but clear. ABDOMEN: Soft. Not distended. Positive bowel sounds. She had moved her bowel. EXTREMITIES: No edema. ASSESSMENT AND PLAN: We are going to keep on addressing all the complaints stay top of them, she has multiple issues. She had low potassium. She had drug abuse with pot, cocaine, and alcohol. She is bipolar. She has dry skin, urinary trace infection, and possibly thrush now. We will continue with aggressive treatment and care. I encouraged her to participate in psychiatric . Nate Smiley DO MTDYoni
[2017-04-27] MEDS: Multivitamin With Minerals Tab PO SCH (08:33)
[2017-04-27] MEDS: Ammonium Lactate 12% Lotion (225 g) EXT SCH ×2 (08:34→17:40)
[2017-04-27] MEDS: Nystatin 100,000 Units/ml Oral Susp 5 ml UD PO SCH ×4 (08:44→21:08)
[2017-04-27 11:45] LABS: HEMOGLOBIN 10.4 g/dL (12.0-16.0); MEAN CELL VOLUME 97.6 fl (80.0-105.0); MEAN CORPUSCULAR HEMOGLOBIN 31.2 pg (25.0-35.0); MEAN PLATELET VOLUME 8.8 fl (7.0-11.0); RBC 3.33 10^6/uL (3.5-6.1); RED CELL DISTRIBUTION WIDTH 13.6 % (11.5-14.5); WHITE BLOOD COUNT 8.3 10^3/ul (4.5-11.0)
[2017-04-27 11:47] LABS: URINE BILIRUBIN NEGATIVE (NEGATIVE); URINE BLOOD NEGATIVE (NEGATIVE); URINE GLUCOSE (UA) NEGATIVE (NEGATIVE); URINE LEUKOCYTE ESTERASE NEGATIVE Leu/uL (NEGATIVE); URINE NITRATE NEGATIVE (NEGATIVE); URINE PROTEIN NEGATIVE mg/dL (<30 mg/dL); URINE UROBILINOGEN 0.2 E.U./dL (<1 E.U./dL)
[2017-04-27 11:48] LABS: URINE APPEARANCE CLEAR (CLEAR); URINE COLOR YELLOW (YELLOW)
[2017-04-27 11:58] LABS: ALBUMIN 3.7 g/dL (3.0-4.8); ALT/SGPT 72 U/L (7-56); AST/SGOT 71 U/L (14-36); BLOOD UREA NITROGEN 26 mg/dL (7-21); CALCIUM 9.6 mg/dL (8.4-10.5); GFR AFRICAN-AMERICAN > 60; GFR NON-AFRICAN AMERICAN > 60
--- NOTE | 2017-04-27 13:51 | PN ---
DATE: 04/27/2017 SUBJECTIVE: I saw her this morning. She is doing much better. Her throat is much better. No abdominal pain. She is moving her bowel. She is in good spirits. She is smiling. Has no complaints, but request this morning. MEDICATIONS: She is on Ambien, Ativan, Benadryl, Colace, Desyrel, Enulose, Haldol, Klonopin, Lac-Hydrin, Maalox, milk of magnesia, Neurontin, Nicoderm, nystatin oral suspension, [place] nasal spray, Seroquel, Fortaz, and Tylenol. PHYSICAL EXAMINATION: VITAL SIGNS: 98.3 temperature, 94 pulse, 109/76 blood pressure, 18 respiratory rate, and 100% O2 saturation on room air. HEENT: Head is atraumatic, normocephalic. HEART: Regular rate. LUNGS: Clear to auscultation. ABDOMEN: Soft and nontender. Positive bowel sounds. Moving her bowels. EXTREMITIES: No edema. LABORATORY DATA: Last labs on the 04/20/2017, CBC was pretty good with a 10.8 hemoglobin. On 04/20/2017, SMA-7 was pretty good with 151 blood sugar, AST is 40, ALT is 30, and alkaline phosphatase is 73. Urine was clear. No blood in the urine. ASSESSMENT AND PLAN: We will continue with aggressive treatment and care for I do think she is starting to improve. She has multiple problems; constipation, thrush, urinary tract infection, bipolar, dry skin, marijuana, alcohol, and cocaine abuse. Nate Smiley DO MTDD
--- NOTE | 2017-04-27 16:07 | PCM.BM ---
Treatment Plan Problems - Problems identified on initial assessmt agitated/aggressive Date Initiated: 04/17/17 Time Initiated: 16:30 Assessment reference: NA Status: Active Priority: 1 altered sleep pattern Date Initiated: 04/17/17 Time Initiated: 16:30 Assessment reference: NA Status: Active Priority: 2 high risk injury Date Initiated: 04/17/17 Time Initiated: 16:30 Assessment reference: NA Status: Active altered thought process Date Initiated: 04/17/17 Time Initiated: 16:55 Assessment reference: NA Status: Active medication non adherence Date Initiated: 04/17/17 Time Initiated: 16:56 Assessment reference: NA Status: Active Treatment assets and liabiliti Patient Assests: self-reliant, ADL independent, negotiates basic needs Patient Liabilities: live alone, financial problems, poor support system, substance abuse - Diagnosis (1) Borderline personality disorder Status: Acute Interventions: 04/17/17 15:36 Psychoeducation Psychopharmacology/adjustment of medications as needed/ monitoring possible side effects Evaluate pt on daily basis Compliance with medications and follow up appointments Suicide and homicide risk assessment and prevention, coping strategies, safety plan Relapse prevention Family involvement As outpatient: Transference-focused psychotherapy/dialectical behavioral therapy /schema therapy Mindfulness skills pt is showing improvement 04/24/17 16:14 (2) Polysubstance dependence Status: Acute Interventions: 04/17/17 15:36 Monitoring withdrawal symptoms Medical detoxification Pharmacotherapy for alcohol/benzos/opioid dependence Maintaining sobriety Relapse prevention Possible rehabilitation Motivational interviewing 12-step programs: AA meetings pt willing to to to inpatient rehab SW involved pt does not have cravings more insightful to her addiction 04/24/17 16:14 (3) Schizoaffective disorder Status: Acute Interventions: 04/17/17 15:37 Psychoeducation/psychotherapy Psychopharmacology/adjustment of medications as needed/ monitoring possible side effects Evaluate pt on daily basis Compliance with medications and follow up appointments Long acting medication if pt is noncompliant with pill form Suicide and homicide risk assessment and prevention, coping strategies, safety plan Relapse prevention Reduction of symptoms Improve functional status Possible assertive community treatment Cognitive behavioral therapy Family involvement Possible social skill training as outpatient doing better, no agitation/no aggression, impulses are better controlled 04/24/17 16:15 - Milieu Protocol Maintain good personal hygiene: every shift Encourage regular showers, every shift Remind patient to perform daily oral care, every shift Assist patient to perform ADL's Conduct patient checks and document Observation sheet: Q15 minutes Maintain personal safety: every shift Educate patient to report safety concerns to staff, every shift Monitor environment for contraband/sharps Medication safety: Monitor for expected outcome, potential side effects: every shift, Assess barriers to learning: every shift, Assess readiness for medication education: every shift Milieu Narrative: Milieu/structure/supportive therapy Medical consult was called consultation for discharge plan, [facility] Nicotine patch seroquel 200mg po bid and 300hs for psychosis klonopin 0.5mg po tid PRN for anxiety neurontin 800mg po tid for cravings ambien 10mg po hs for insomnia prn trazodone 100mg po hs prnfor insomnia PRN meds Haldol/benadryl/ativan Family involvement Follow up on labs Will monitor closely Pt was educated about risk/benefits and alternatives of medications, coping strategies (safety plan, suicide prevention), relapse prevention, importance of follow up with psychiatrist and therapist, stay away from drugs/alcohol/smoking Family Contact Family involvement: Famliy/SO not involved Family contact: Patient declines to allow family contact at present Discharge/Continuing Care - Education Needs Education Needs: Patient Medication, Patient Diagnosis/Disease Process, Patient Coping Skills, Patient Personal Hygiene/Grooming - Discharge Discharge Criteria: Tolerates medication w/o severe side effects, Free of Suicidal thoughts, Free of Homicidal thoughts, Free of paranoid thoughts, Free of agitation, Normal sleep pattern, Ability to care for self - Treatment Team Participation Patient/Family/SO Statement: Milieu/structure/supportive therapy Medical consult was called consultation for discharge plan, [facility] Nicotine patch seroquel 200mg po bid and 300hs for psychosis klonopin 0.5mg po tid PRN for anxiety neurontin 800mg po tid for cravings ambien 10mg po hs for insomnia prn trazodone 100mg po hs prnfor insomnia PRN meds Haldol/benadryl/ativan Family involvement Follow up on labs Will monitor closely Pt was educated about risk/benefits and alternatives of medications, coping strategies (safety plan, suicide prevention), relapse prevention, importance of follow up with psychiatrist and therapist, stay away from drugs/alcohol/smoking Treatment Plan Review - Problem agitated/aggressive Time Initiated: 16:30 altered sleep pattern Time Initiated: 16:30 high risk injury Time Initiated: 16:30 altered thought process Time Initiated: 16:55 medication non adherence Time Initiated: 16:56
--- NOTE | 2017-04-27 16:15 | PCM.PYCHPN ---
Psychiatric Progress Note - Psychiatric Progress Note Patient seen today, length of contact: 30min Patient Chief Complaint: "amber Moody, I saw a blue wig on the floor then it turned to the snake and it almost attacked me, it was over the weekend..., that is why I asked for medication...." Problems Identified/Issues Discussed: Suicide/ homicide prevention, past psychiatric h/o, current psychiatric symptoms , medical problems, risk/benefits and alternatives of medications, medications compliance, coping strategies, substance abuse h/o, relapse prevention, importance of follow up with psychiatrist and therapist, discharge plan. Medical Problems: UTI abx started pt c/o constipation, which is better now Diagnostic Results: 04/20/17 09:40 04/20/17 09:40 Lab Results 04/20/17 09:40: TSH 3rd Generation 1.56 04/20/17 09:40: Sodium 138, Potassium 3.7, Chloride 106, Carbon Dioxide 23, Anion Gap 12, BUN 18, Creatinine 0.6 L, Est GFR ( Amer) > 60, Est GFR ( Non-Af Amer) > 60, Random Glucose 151 H, Calcium 9.2, Total Bilirubin 0.1 L, AST 48 H, ALT 30, Alkaline Phosphatase 73, Total Protein 7.2, Albumin 3.5, Globulin 3.8, Albumin/Globulin Ratio 0.9 L 04/20/17 09:40: WBC 6.6 D, RBC 3.41 L, Hgb 10.8 L, Hct 33.3 L, MCV 97.7, MCH 31.7, MCHC 32.4, RDW 13.5, Plt Count 455 H, MPV 8.9 04/19/17 07:45: Sodium 137, Potassium 4.5, Chloride 103, Carbon Dioxide 29, Anion Gap 10, BUN 16, Creatinine 0.7, Est GFR ( Amer) > 60, Est GFR (Non- Af Amer) > 60, Random Glucose 100, Calcium 9.7, Total Bilirubin 0.2, AST 51 H D , ALT 31, Alkaline Phosphatase 73, Total Protein 8.3, Albumin 4.0, Globulin 4.2 , Albumin/Globulin Ratio 1.0 L 04/19/17 07:45: WBC 9.2, RBC 3.94, Hgb 12.5, Hct 38.9, MCV 98.7 D, MCH 31.7, MCHC 32.1, RDW 13.6, Plt Count 558 H, MPV 9.2 04/17/17 03:34: Urine Opiates Screen Negative, Urine Methadone Screen Negative, Ur Barbiturates Screen Negative, Ur Phencyclidine Scrn Negative, Ur Amphetamines Screen Negative, U Benzodiazepines Scrn Negative, U Oth Cocaine Metabols Positive H, U Cannabinoids Screen Positive H 04/17/17 03:34: Urine Color Yellow, Urine Appearance Clear, Urine pH 7.0, Ur Specific [place] 1.010, Urine Protein Negative, Urine Glucose (UA) Negative, Urine Ketones Negative, Urine Blood Trace-lysed H, Urine Nitrate Negative, Urine Bilirubin Negative, Urine Urobilinogen 1.0 H, Ur Leukocyte Esterase Small H, Urine RBC 0 - 2, Urine WBC 1 - 3, Ur Epithelial Cells 0 - 2, Amorphous Sediment Few, Urine Bacteria Few, Urine HCG, Qual Negative 04/16/17 22:50: Alcohol, Quantitative 20 H 04/16/17 22:50: Salicylates < 1 L, Acetaminophen < 10.0 L 04/16/17 22:50: Sodium 135, Potassium 3.4 L, Chloride 100, Carbon Dioxide 24, Anion Gap 15, BUN 15, Creatinine 0.9, Est GFR ( Amer) > 60, Est GFR (Non- Af Amer) > 60, Random Glucose 82, Calcium 9.3, Total Bilirubin 0.3, AST 31, ALT 32, Alkaline Phosphatase 75, Total Protein 7.8, Albumin 3.9, Globulin 3.9, Albumin/Globulin Ratio 1.0 L 04/16/17 22:50: WBC 8.4 D, RBC 3.44 L, Hgb 10.9 L, Hct 32.6 L, MCV 94.8, MCH 31.7, MCHC 33.4, RDW 13.0, Plt Count 586 H, MPV 8.8, Gran % 66.4, Lymph % (Auto ) 24.5, [place] % (Auto) 7.5 H, Eos % (Auto) 1.0 L, Baso % (Auto) 0.6, Gran # 5.58 , Lymph # 2.1, [place] # 0.6, Eos # 0.1, Baso # 0.05 Vital Signs Temp Pulse Pulse Resp BP Pulse Ox 04/20/17 06:56 97.9 F 80 20 126/85 04/19/17 07:37 97.9 F 102 H 20 116/75 04/17/17 11:16 72 16 04/17/17 05:29 93 H 18 112/62 98 04/17/17 03:29 92 H 18 114/63 98 04/17/17 01:29 95 H 18 116/64 98 04/16/17 23:29 98 H 20 115/65 97 04/16/17 21:27 126 H 24 114/62 97 Temp Pulse Resp BP Pulse Ox 97.6 F 76 20 124/78 98 04/21/17 07:01 04/21/17 07:01 04/21/17 07:01 04/21/17 07:01 04/17/17 05:29 Temp Pulse Resp BP Pulse Ox 97.3 F L 103 H 20 118/72 98 04/22/17 07:43 04/22/17 16:09 04/22/17 07:43 04/22/17 16:09 04/17/17 05:29 Laboratory Results - last 24 hr 04/27/17 04/27/17 04/27/17 11:35 11:35 11:35 WBC 8.3 D RBC 3.33 L Hgb 10.4 L Hct 32.5 L MCV 97.6 MCH 31.2 MCHC 32.0 RDW 13.6 Plt Count 446 MPV 8.8 Sodium 138 Potassium 4.5 Chloride 100 Carbon Dioxide 28 Anion Gap 15 BUN 26 H Creatinine 0.6 L Est GFR ( Amer) > 60 Est GFR (Non-Af Amer) > 60 Random Glucose 115 H Calcium 9.6 Total Bilirubin 0.2 AST 71 H D ALT 72 H Alkaline Phosphatase 75 Total Protein 7.5 Albumin 3.7 Globulin 3.7 Albumin/Globulin Ratio 1.0 L Urine Color Yellow Urine Appearance Clear Urine pH 7.0 Ur Specific [place] 1.010 Urine Protein Negative Urine Glucose (UA) Negative Urine Ketones Negative Urine Blood Negative Urine Nitrate Negative Urine Bilirubin Negative Urine Urobilinogen 0.2 Ur Leukocyte Esterase Negative Temp Pulse Resp BP Pulse Ox 98.3 F 94 H 18 109/76 100 04/27/17 07:10 04/27/17 07:10 04/27/17 07:10 04/27/17 07:10 04/27/17 07:10 DSM 5 Symptoms Update: shortly pt is 47yo female with history of Schizoaffective Disorder, Anxiety, Borderline Personality Disorder, h/o polysubstance abuse and dependence (crack, cocaine, MJA), multiple psychiatric admissions-most recently was in this facility February 2017, noncompliance with medications and follow up apps, pt came to the ED of Seroquel, klonopin and tegretol who was admitted to our psychiatric unit for depression, SI and derogatory hallucinations in the context of crack/cocaine and MJA use. pt was not able to contract for safety, needed further evaluation and stabilization. in the ED "I am tired of this f* world", "I do not like me", and "I am killing myself with drugs". pt was seen and examined today at the treatment team, pt is irritable, mood swings, but much calmer to compared to the last week, over the weekend patient had visual hallucinations overnight that is why pt was medicated with Haldol Benadryl and Ativan IM. Patient said that she "blue wig which turned into snake ", which almost attacked her. this procedure writer ordered a CBC, CMP, urine analysis, which all came back negative and within normal limits. pt is intrusive, childlike demeanor. pt overall is improving slowly. pt tolerates meds well, no side effects observed or reported, AIMS 0, no EPS. Diagnostic Results: schizoaffective d/o panic disorder cannabis dependence borderline personality d/o r/o antisocial personality disorder Medication Change: Yes (Seroquel maximized, Vistaril added) Medical Record Reviewed: Yes Consults ordered or reviewed: medical consult appreciated pt has UTI cipro started Mental Status Examination - Cognitive Function Orientation: Person Attention: WNL Concentration: Poor Association: Loose - Mood Mood: Depressed ("feel all right, still a little depressed") - Affect Affect: Constricted, Other (labile, emotional) - Formal Thought Process Formal Thought Process: Hallucinations ("to get the f*ck out of here and do drugs" "I saw a blue wig which turned into the snake"), Delusions, Paranoia ( better), Loosening of associations - Suicidal Ideation Suicidal Ideation: No - Homicidal Ideation Homicidal Ideation: No Goal/Treatment Plan - Goal/Treatment Plan Need for Continued Stay: Remain at risks for inpatient hospitalization, Severe depression anxiety, Discharge may exacerbated symptoms, Severe functional impairment Progress Toward Problem(s) and Goals/Treatment Plan: Milieu/structure/supportive therapy Medical consult was called SW consultation for discharge plan, pt [facility] to [facility] inpatient rehab Med management Nicotine patch seroquel 200mg po bid and 400hs for psychosis klonopin 0.5mg po bid PRN for anxiety vistaril 50mg po tid PRN anxiety neurontin 800mg po tid for cravings ambien 10mg po hs for insomnia prn trazodone 100mg po hs prnfor insomnia PRN meds Haldol/benadryl/ativan Family involvement Follow up on labs Will monitor closely Pt was educated about risk/benefits and alternatives of medications, coping strategies (safety plan, suicide prevention), relapse prevention, importance of follow up with psychiatrist and therapist, stay away from drugs/alcohol/smoking Estimated Date of D/C: 04/30/17
[2017-04-27] MEDS ORDERED: Magnesium Citrate Oral SOL (300 ml) PO ONE (19:14)
--- NOTE | 2017-04-27 19:18 | CP.PCM.PN ---
Subjective - Date & Time of Evaluation Date of Evaluation: 04/27/17 Time of Evaluation: 19:15 - Subjective Subjective: Patient was seen at bedside in presence of community recreation programmer. Patient has been ambulating and I see her in lobby pacing. This 47 year old woman who is in no apparent distress, complains of distension of abdomen and also requested some pain medication at the end of examination. Denies nausea, vomiting. Abdominal pain is mild, in upper abdomen. States that she has been constipated and had little bowel movement today. Medical record was reviewed. She was admitted with bizzare behaviour, agitation. Has PMH of constipation, UTI, cocaine use, marijuana use, anxiety , depression. Objective - Vital Signs/Intake and Output Vital Signs (last 24 hours): Temp Pulse Resp BP Pulse Ox 98.3 F 94 H 18 109/76 100 04/27/17 07:10 04/27/17 07:10 04/27/17 07:10 04/27/17 07:10 04/27/17 07:10 - Medications Medications: Current Medications Acetaminophen (Tylenol 325mg Tab) 650 mg PO Q6H PRN PRN Reason: Pain, moderate (4-7) Last Admin: 04/24/17 20:25 Dose: 650 mg Al Hydrox/Mg Hydrox/Simethicone (Maalox Plus 30 Ml) 30 ml PO DAILY PRN PRN Reason: Upset Stomach Clonazepam (Klonopin) 0.5 mg PO BID PRN; Protocol PRN Reason: Anxiety Diphenhydramine HCl (Benadryl) 50 mg IM Q6H PRN PRN Reason: Allergy symptoms Last Admin: 04/27/17 00:35 Dose: 50 mg Diphenhydramine HCl (Benadryl) 50 mg PO Q6 PRN PRN Reason: Agitation Last Admin: 04/27/17 13:04 Dose: 50 mg Docusate Sodium (Colace) 100 mg PO BID NINA Last Admin: 04/27/17 17:38 Dose: 100 mg Gabapentin (Neurontin) 800 mg PO TID NINA PRN Reason: Protocol Last Admin: 04/27/17 17:38 Dose: 800 mg Haloperidol (Haldol) 5 mg PO Q6 PRN; Protocol PRN Reason: Agitation Last Admin: 04/27/17 13:04 Dose: 5 mg Haloperidol Lactate (Haldol) 5 mg IM Q6 PRN; Protocol PRN Reason: Agitation Last Admin: 04/27/17 00:36 Dose: 5 mg Hydroxyzine Pamoate (Vistaril) 50 mg PO Q8 PRN; Protocol PRN Reason: Anxiety Lactic Acid (Lac-Hydrin 12% Lotion (225 G)) 0 gm EXT BID [facility] Last Admin: 04/27/17 17:40 Dose: 1 applic Lactulose (Enulose) 20 gm PO HS [facility] Last Admin: 04/26/17 22:14 Dose: 20 gm Lorazepam (Ativan) 2 mg IM Q6H PRN; Protocol PRN Reason: Agitation Last Admin: 04/27/17 00:35 Dose: 2 mg Lorazepam (Ativan) 2 mg PO Q6 PRN; Protocol PRN Reason: Agitation Last Admin: 04/24/17 23:15 Dose: 2 mg Magnesium Hydroxide (Milk Of Magnesia) 30 ml PO DAILY PRN PRN Reason: Constipation Last Admin: 04/24/17 20:31 Dose: 30 ml Multivitamins/Minerals (Therapeutic-M Tab) 1 tab PO 0800 [facility] Last Admin: 04/27/17 08:33 Dose: 1 tab Nicotine (Nicoderm Cq) 1 patch TD DAILY [facility] Last Admin: 04/27/17 08:33 Dose: 1 patch Nystatin (Nystatin Oral Susp) 5 ml PO QID [facility] Last Admin: 04/27/17 17:39 Dose: 5 ml Quetiapine Fumarate (Seroquel) 200 mg PO BID NINA PRN Reason: Protocol Last Admin: 04/27/17 15:40 Dose: 200 mg Quetiapine Fumarate (Seroquel) 400 mg PO HS NINA PRN Reason: Protocol Sodium Chloride ([place] Nasal [place]) 0 ml NS Q4H PRN PRN Reason: Nasal congestion Last Admin: 04/25/17 20:50 Dose: 1 spr Tramadol HCl (Ultram) 50 mg PO STAT STA Stop: 04/27/17 19:12 Trazodone HCl (Desyrel) 100 mg PO HS PRN PRN Reason: Insomnia Last Admin: 04/25/17 21:28 Dose: 100 mg Zolpidem Tartrate (Ambien) 10 mg PO HS PRN; Protocol PRN Reason: Insomnia Last Admin: 04/24/17 21:10 Dose: 10 mg - Labs Labs: 04/27/17 11:35 04/27/17 11:35 Micro Results 04/17/17 06:49 Urine,Clean Catch Urine Culture - Final Escherichia Coli Most Recent Lab Values WBC 8.3 10^3/ul (4.5-11.0) D 04/27/17 11:35 RBC 3.33 10^6/uL (3.5-6.1) L 04/27/17 11:35 Hgb 10.4 g/dL (12.0-16.0) L 04/27/17 11:35 Hct 32.5 % (36.0-48.0) L 04/27/17 11:35 MCV 97.6 fl (80.0-105.0) 04/27/17 11:35 MCH 31.2 pg (25.0-35.0) 04/27/17 11:35 MCHC 32.0 g/dl (31.0-37.0) 04/27/17 11:35 RDW 13.6 % (11.5-14.5) 04/27/17 11:35 Plt Count 446 10^3/uL (120.0-450.0) 04/27/17 11:35 MPV 8.8 fl (7.0-11.0) 04/27/17 11:35 Gran % 66.4 % (50.0-68.0) 04/16/17 22:50 Lymph % (Auto) 24.5 % (22.0-35.0) 04/16/17 22:50 [place] % (Auto) 7.5 % (1.0-6.0) H 04/16/17 22:50 Eos % (Auto) 1.0 % (1.5-5.0) L 04/16/17 22:50 Baso % (Auto) 0.6 % (0.0-3.0) 04/16/17 22:50 Gran # 5.58 (1.4-6.5) 04/16/17 22:50 Lymph # 2.1 (1.2-3.4) 04/16/17 22:50 [place] # 0.6 (0.1-0.6) 04/16/17 22:50 Eos # 0.1 (0.0-0.7) 04/16/17 22:50 Baso # 0.05 K/mm3 (0.0-2.0) 04/16/17 22:50 Sodium 138 mmol/L (132-148) 04/27/17 11:35 Potassium 4.5 mmol/L (3.6-5.0) 04/27/17 11:35 Chloride 100 mmol/L (98-107) 04/27/17 11:35 Carbon Dioxide 28 mmol/L (21-33) 04/27/17 11:35 Anion Gap 15 (10-20) 04/27/17 11:35 BUN 26 mg/dL (7-21) H 04/27/17 11:35 Creatinine 0.6 mg/dl (0.7-1.2) L 04/27/17 11:35 Est GFR ( Amer) > 60 04/27/17 11:35 Est GFR (Non-Af Amer) > 60 04/27/17 11:35 Random Glucose 115 mg/dL (70-110) H 04/27/17 11:35 Calcium 9.6 mg/dL (8.4-10.5) 04/27/17 11:35 Total Bilirubin 0.2 mg/dL (0.2-1.3) 04/27/17 11:35 AST 71 U/L (14-36) H D 04/27/17 11:35 ALT 72 U/L (7-56) H 04/27/17 11:35 Alkaline Phosphatase 75 U/L (38-126) 04/27/17 11:35 Total Protein 7.5 g/dL (5.8-8.3) 04/27/17 11:35 Albumin 3.7 g/dL (3.0-4.8) 04/27/17 11:35 Globulin 3.7 gm/dL 04/27/17 11:35 Albumin/Globulin Ratio 1.0 (1.1-1.8) L 04/27/17 11:35 TSH 3rd Generation 1.56 mIU/mL (0.46-4.68) 04/20/17 09:40 Urine Color Yellow (YELLOW) 04/27/17 11:35 Urine Appearance Clear (CLEAR) 04/27/17 11:35 Urine pH 7.0 (4.7-8.0) 04/27/17 11:35 Ur Specific [place] 1.010 (1.005-1.035) 04/27/17 11:35 Urine Protein Negative mg/dL (<30 mg/dL) 04/27/17 11:35 Urine Glucose (UA) Negative mg/dL (NEGATIVE) 04/27/17 11:35 Urine Ketones Negative mg/dL (NEGATIVE) 04/27/17 11:35 Urine Blood Negative (NEGATIVE) 04/27/17 11:35 Urine Nitrate Negative (NEGATIVE) 04/27/17 11:35 Urine Bilirubin Negative (NEGATIVE) 04/27/17 11:35 Urine Urobilinogen 0.2 E.U./dL (<1 E.U./dL) 04/27/17 11:35 Ur Leukocyte Esterase Negative Francoise/uL (NEGATIVE) 04/27/17 11:35 Urine RBC 0 - 2 /hpf (0-2) 04/17/17 03:34 Urine WBC 1 - 3 /hpf (0-6) 04/17/17 03:34 Ur Epithelial Cells 0 - 2 /hpf (0-5) 04/17/17 03:34 Amorphous Sediment Few 04/17/17 03:34 Urine Bacteria Few (NEG) 04/17/17 03:34 Urine HCG, Qual Negative (NEGATIVE) 04/17/17 03:34 Salicylates < 1 mg/dL (2.0-20.0) L 04/16/17 22:50 Urine Opiates Screen Negative (NEGATIVE) 04/17/17 03:34 Urine Methadone Screen Negative (NEGATIVE) 04/17/17 03:34 Acetaminophen < 10.0 ug/ml (10.0-20.0) L 04/16/17 22:50 Ur Barbiturates Screen Negative (NEGATIVE) 04/17/17 03:34 Ur Phencyclidine Scrn Negative (NEGATIVE) 04/17/17 03:34 Ur Amphetamines Screen Negative (NEGATIVE) 04/17/17 03:34 U Benzodiazepines Scrn Negative (NEGATIVE) 04/17/17 03:34 U Oth Cocaine Metabols Positive (NEGATIVE) H 04/17/17 03:34 U Cannabinoids Screen Positive (NEGATIVE) H 04/17/17 03:34 Alcohol, Quantitative 20 mg/dL (0-10) H 04/16/17 22:50 HIV 1&2 Ag/Ab, 4th Gen Nonreactive (Nonreactive) 04/19/17 12:30 - Constitutional Appears: Well, No Acute Distress - Head Exam Head Exam: ATRAUMATIC, NORMAL INSPECTION, NORMOCEPHALIC - Eye Exam Eye Exam: Normal appearance - ENT Exam ENT Exam: Normal External Ear Exam - Neck Exam Neck Exam: Normal Inspection - Respiratory Exam Respiratory Exam: NORMAL BREATHING PATTERN - Cardiovascular Exam Cardiovascular Exam: absent: JVD - GI/Abdominal Exam GI & Abdominal Exam: Soft (Yes.), Tenderness (Minimal in RUQ and epigastric region.), Normal Bowel Sounds. absent: Bruit, Distended, Firm, Guarding, Rigid , Hernia, Mass, Organomegaly, Pulsatile Mass, Rebound - Rectal Exam Rectal Exam: Deferred - Exam Additional comments: Deferred. - Extremities Exam Extremities Exam: Normal Inspection - Back Exam Back Exam: NORMAL INSPECTION - Neurological Exam Neurological Exam: Alert, Awake, Oriented x3 Additional comments: Ambulating. - Psychiatric Exam Psychiatric exam: Normal Affect, Normal Mood - Skin Skin Exam: Normal Color Assessment and Plan - Assessment and Plan (Free Text) Assessment: Constipation. Abdominal distension. Anxiety. Depression. Anemia. Elevated LFT's. Cocaine abuse. Marijuana abuse. Plan: Amylase.--->136 Lipase. Ultram 50 mg PO x 1. Citrate of magnesia. Xray abdomen flat/upright.------------->lot of stool present Continue present management as per IM travel sales consultant.
[2017-04-27 19:45] LABS: AMYLASE 136 U/L (35-125); LIPASE 149 U/L (23-300)
[2017-04-28 07:31] VITALS: RESP 20
[2017-04-28] MEDS: Multivitamin With Minerals Tab PO SCH (08:13)
[2017-04-28] MEDS: Nystatin 100,000 Units/ml Oral Susp 5 ml UD PO SCH ×4 (08:13→22:20)
[2017-04-28] MEDS: Ammonium Lactate 12% Lotion (225 g) EXT SCH ×2 (08:14→18:06)
--- NOTE | 2017-04-28 09:25 | RAD ---
HISTORY: abdominal distension. COMPARISON: 11/27/2013 FINDINGS: BOWEL: Normal. No obstruction. No free air. Moderate retained feces. 8 mm calcification mid right abdomen, uncertain significance. . . BONES: Normal. OTHER FINDINGS: None. IMPRESSION: Moderate retained feces.
--- NOTE | 2017-04-28 15:27 | CP.PCM.CON ---
<Allen Lizama - Last Filed: 04/28/17 17:33> History of Present Illness - History of Present Illness History of Present Illness: GI Consult Note: 47 F with pmh of gastritis, chronic constipation, schizoaffective disorder, anxiety, borderline personality disorder, h/o polysubstance abuse and dependence (crack, cocaine, MJA), presents to the psychiatric unit for depression, SI and derogatory hallucinations. GI team was consulted constipation. Pt states that she has a history of constipation but since she came to the hospital it has gotten worse. Pt states that her last bowel movement was today and the time prior was 4 days ago. Pt states that she normally moves her bowel every day or every other day. Pt is currently receiving Colace, Milk of Mag prn and Behzad citrate x 1 dose. Abd X-ray performed yesterday showed moderate constipation. She denies any abdominal pain, nausea, vomiting, diarrhea, hematochezia or melena. 12 Point ROS performed and negative other than stated above. PMH: as above PSHx: denies Med: refer to [facility] ALL: PCN SH: Etoh use with 5 beers daily and has extensive history of pack of beer per day, Smoke half PPD x 30 years, druge use with crack, cocaine, MJA FH: Mom with DM; sister with breast ca Endo hx: Had colonoscopy "many years ago" Review of Systems - Review of Systems All systems: reviewed and no additional remarkable complaints except Past Patient History - Infectious Disease Hx of Infectious Diseases: None - Tetanus Immunizations Tetanus Immunization: Unknown - Past Social History Smoking Status: Heavy Smoker > 10 Cigarettes Daily - CARDIAC Hx Cardiac Disorders: No Hx Hypertension: No - PULMONARY Hx Respiratory Disorders: No Hx Tuberculosis: No - NEUROLOGICAL Hx Neurological Disorder: No HX Cerebrovascular Accident: No Hx Seizures: No - HEENT Hx HEENT Problems: No - RENAL Hx Chronic Kidney Disease: No - ENDOCRINE/METABOLIC Hx Endocrine Disorders: No - HEMATOLOGICAL/ONCOLOGICAL Hx Blood Disorders: No Hx Cancer: No - INTEGUMENTARY Hx Dermatological Problems: No - MUSCULOSKELETAL/RHEUMATOLOGICAL Hx Musculoskeletal Disorders: No Hx Falls: No - GASTROINTESTINAL Hx Gastrointestinal Disorders: No - GENITOURINARY/GYNECOLOGICAL Hx Sexually Transmitted Disorders: No Hx Urinary Tract Infection: Yes - PSYCHIATRIC Hx Anxiety: Yes Hx Bipolar Disorder: Yes Hx Depression: Yes Hx Substance Use: Yes - SURGICAL HISTORY Hx Surgeries: Yes Other/Comment: Left index surgery - ANESTHESIA Hx Anesthesia: No Meds Allergies/Adverse Reactions: Allergies Allergy/AdvReac Type Severity Reaction Status Date / Time Penicillins Allergy RASH Verified 02/09/16 03:17 - Medications Medications: Current Medications Acetaminophen (Tylenol 325mg Tab) 650 mg PO Q6H PRN PRN Reason: Pain, moderate (4-7) Last Admin: 04/24/17 20:25 Dose: 650 mg Al Hydrox/Mg Hydrox/Simethicone (Maalox Plus 30 Ml) 30 ml PO DAILY PRN PRN Reason: Upset Stomach Clonazepam (Klonopin) 0.5 mg PO BID PRN; Protocol PRN Reason: Anxiety Diphenhydramine HCl (Benadryl) 50 mg IM Q6H PRN PRN Reason: Allergy symptoms Last Admin: 04/27/17 00:35 Dose: 50 mg Diphenhydramine HCl (Benadryl) 50 mg PO Q6 PRN PRN Reason: Agitation Last Admin: 04/28/17 14:37 Dose: 50 mg Docusate Sodium (Colace) 100 mg PO BID [facility] Last Admin: 04/28/17 08:13 Dose: 100 mg Gabapentin (Neurontin) 800 mg PO TID [facility] PRN Reason: Protocol Last Admin: 04/28/17 12:58 Dose: 800 mg Haloperidol (Haldol) 5 mg PO Q6 PRN; Protocol PRN Reason: Agitation Last Admin: 04/28/17 14:34 Dose: 5 mg Haloperidol Lactate (Haldol) 5 mg IM Q6 PRN; Protocol PRN Reason: Agitation Last Admin: 04/27/17 00:36 Dose: 5 mg Hydroxyzine Pamoate (Vistaril) 50 mg PO Q8 PRN; Protocol PRN Reason: Anxiety Lactic Acid (Lac-Hydrin 12% Lotion (225 G)) 0 gm EXT BID [facility] Last Admin: 04/28/17 08:14 Dose: 1 applic Lactulose (Enulose) 20 gm PO HS [facility] Last Admin: 04/27/17 21:09 Dose: 20 gm Lorazepam (Ativan) 2 mg IM Q6H PRN; Protocol PRN Reason: Agitation Last Admin: 04/27/17 00:35 Dose: 2 mg Lorazepam (Ativan) 2 mg PO Q6 PRN; Protocol PRN Reason: Agitation Last Admin: 04/28/17 14:34 Dose: 2 mg Magnesium Hydroxide (Milk Of Magnesia) 30 ml PO DAILY PRN PRN Reason: Constipation Last Admin: 04/24/17 20:31 Dose: 30 ml Multivitamins/Minerals (Therapeutic-M Tab) 1 tab PO 0800 [facility] Last Admin: 04/28/17 08:13 Dose: 1 tab Nicotine (Nicoderm Cq) 1 patch TD DAILY [facility] Last Admin: 04/28/17 08:13 Dose: 1 patch Nystatin (Nystatin Oral Susp) 5 ml PO QID [facility] Last Admin: 04/28/17 12:58 Dose: 5 ml Quetiapine Fumarate (Seroquel) 200 mg PO BID [facility] PRN Reason: Protocol Last Admin: 04/28/17 08:13 Dose: 200 mg Quetiapine Fumarate (Seroquel) 400 mg PO HS [facility] PRN Reason: Protocol Last Admin: 04/27/17 21:09 Dose: 400 mg Sodium Chloride ([place] Nasal [place]) 0 ml NS Q4H PRN PRN Reason: Nasal congestion Last Admin: 04/27/17 21:33 Dose: 2 spr Trazodone HCl (Desyrel) 100 mg PO HS PRN PRN Reason: Insomnia Last Admin: 04/27/17 22:57 Dose: 100 mg Zolpidem Tartrate (Ambien) 10 mg PO HS PRN; Protocol PRN Reason: Insomnia Last Admin: 04/28/17 03:08 Dose: 10 mg Physical Exam - Head Exam Head Exam: ATRAUMATIC, NORMOCEPHALIC - Eye Exam Eye Exam: EOMI, PERRL Pupil Exam: NORMAL ACCOMODATION - ENT Exam ENT Exam: Mucous Membranes Moist - Neck Exam Neck exam: Positive for: Normal Inspection - Respiratory Exam Respiratory Exam: Clear to Auscultation Bilateral. absent: Rales, Wheezes - Cardiovascular Exam Cardiovascular Exam: REGULAR RHYTHM, RRR, +S1, +S2 - GI/Abdominal Exam GI & Abdominal Exam: Distended, Normal Bowel Sounds, Soft. absent: Organomegaly , Tenderness Additional comments: Mild distension - Extremities Exam Extremities exam: Negative for: calf tenderness, pedal edema - Neurological Exam Neurological exam: Alert, CN II-XII Intact, Oriented x3 - Psychiatric Exam Psychiatric exam: Normal Affect, Normal Mood - Skin Skin Exam: Dry, Intact, Warm Results - Vital Signs Recent Vital Signs: Last Vital Signs Temp 98.0 F 04/28/17 07:31 Pulse 100 H 04/28/17 07:31 Resp 20 04/28/17 07:31 BP 125/62 04/28/17 07:31 Pulse Ox 100 04/27/17 07:10 - Labs Result Diagrams: 04/27/17 11:35 04/27/17 11:35 Labs: Laboratory Results - last 24 hr 04/27/17 11:35 Amylase 136 H Lipase 149 Assessment & Plan - Assessment and Plan (Free Text) Assessment: 47 F with pmh of gastritis, chronic constipation, schizoaffective disorder, anxiety, borderline personality disorder, h/o polysubstance abuse and dependence (crack, cocaine, MJA), presents to the psychiatric unit for depression, SI and derogatory hallucinations. GI team was consulted constipation. 1. Constipation 2. Hx of gastritis - Diet with high amount of fiber - Increase fluid intake and exercise - Start on Miralax BID scheduled daily - Dulcolax 10mg RC x 1 has been ordered; Will add Dulcolax 5mg PO x 1 - Mag citrate x 1 administered yesterday - Continue Colace and Milk of magnesia PRN - D/c Lactulose - Pepcid as needed Case and plan was reviewed and discussed in detail with Dr Jeff. <Pineda Jeff - Last Filed: 04/28/17 21:26> Meds - Medications Medications: Current Medications Acetaminophen (Tylenol 325mg Tab) 650 mg PO Q6H PRN PRN Reason: Pain, moderate (4-7) Last Admin: 04/24/17 20:25 Dose: 650 mg Al Hydrox/Mg Hydrox/Simethicone (Maalox Plus 30 Ml) 30 ml PO DAILY PRN PRN Reason: Upset Stomach Diphenhydramine HCl (Benadryl) 50 mg IM Q6H PRN PRN Reason: Allergy symptoms Last Admin: 04/27/17 00:35 Dose: 50 mg Diphenhydramine HCl (Benadryl) 50 mg PO Q6 PRN PRN Reason: Agitation Last Admin: 04/28/17 14:37 Dose: 50 mg Docusate Sodium (Colace) 100 mg PO BID [facility] Last Admin: 04/28/17 17:45 Dose: 100 mg Gabapentin (Neurontin) 800 mg PO TID [facility] PRN Reason: Protocol Last Admin: 04/28/17 17:45 Dose: 800 mg Haloperidol (Haldol) 5 mg PO Q6 PRN; Protocol PRN Reason: Agitation Last Admin: 04/28/17 14:34 Dose: 5 mg Haloperidol Lactate (Haldol) 5 mg IM Q6 PRN; Protocol PRN Reason: Agitation Last Admin: 04/27/17 00:36 Dose: 5 mg Hydroxyzine Pamoate (Vistaril) 50 mg PO Q8 PRN; Protocol PRN Reason: Anxiety Lactic Acid (Lac-Hydrin 12% Lotion (225 G)) 0 gm EXT BID [facility] Last Admin: 04/28/17 18:06 Dose: 1 applic Lorazepam (Ativan) 2 mg IM Q6H PRN; Protocol PRN Reason: Agitation Last Admin: 04/27/17 00:35 Dose: 2 mg Lorazepam (Ativan) 2 mg PO Q6 PRN; Protocol PRN Reason: Agitation Last Admin: 04/28/17 14:34 Dose: 2 mg Magnesium Hydroxide (Milk Of Magnesia) 30 ml PO DAILY PRN PRN Reason: Constipation Last Admin: 04/24/17 20:31 Dose: 30 ml Multivitamins/Minerals (Therapeutic-M Tab) 1 tab PO 0800 [facility] Last Admin: 04/28/17 08:13 Dose: 1 tab Nicotine (Nicoderm Cq) 1 patch TD DAILY [facility] Last Admin: 04/28/17 08:13 Dose: 1 patch Nystatin (Nystatin Oral Susp) 5 ml PO QID [facility] Last Admin: 04/28/17 17:45 Dose: 5 ml Polyethylene Glycol (Miralax) 17 gm PO BID [facility] Last Admin: 04/28/17 18:05 Dose: 17 gm Quetiapine Fumarate (Seroquel) 200 mg PO BID [facility] PRN Reason: Protocol Last Admin: 04/28/17 17:45 Dose: 200 mg Quetiapine Fumarate (Seroquel) 400 mg PO HS [facility] PRN Reason: Protocol Last Admin: 04/27/17 21:09 Dose: 400 mg Sodium Chloride ([place] Nasal [place]) 0 ml NS Q4H PRN PRN Reason: Nasal congestion Last Admin: 04/27/17 21:33 Dose: 2 spr Trazodone HCl (Desyrel) 100 mg PO HS PRN PRN Reason: Insomnia Last Admin: 04/27/17 22:57 Dose: 100 mg Zolpidem Tartrate (Ambien) 10 mg PO HS PRN; Protocol PRN Reason: Insomnia Last Admin: 04/28/17 03:08 Dose: 10 mg Results - Vital Signs Recent Vital Signs: Last Vital Signs Temp 98.0 F 04/28/17 07:31 Pulse 105 H 04/28/17 16:00 Resp 20 04/28/17 07:31 BP 102/71 04/28/17 16:00 Pulse Ox 100 04/27/17 07:10 - Labs Result Diagrams: 04/27/17 11:35 04/27/17 11:35 Attending/Attestation - Attestation I have personally seen and examined this patient.: Yes I have fully participated in the care of the patient.: Yes I have reviewed all pertinent clinical information: Yes Notes (Text): 04/28/17 21:25 47 year old female with h/o substance abuse, admitted to psychiatry meng, with h /o chronic constipation. 1. Chronic constipation Plan: -bowel regimen with miralax/dulcolax as above -will sign off for now, but please call with questions
--- NOTE | 2017-04-28 16:09 | PCM.PYCHPN ---
Psychiatric Progress Note - Psychiatric Progress Note Patient seen today, length of contact: 30min Patient Chief Complaint: "I feel better, I think I am ready to go..." Problems Identified/Issues Discussed: Suicide/ homicide prevention, past psychiatric h/o, current psychiatric symptoms , medical problems, risk/benefits and alternatives of medications, medications compliance, coping strategies, substance abuse h/o, relapse prevention, importance of follow up with psychiatrist and therapist, discharge plan. Medical Problems: UTI abx started pt c/o constipation, which is better now Diagnostic Results: 04/20/17 09:40 04/20/17 09:40 Lab Results 04/20/17 09:40: TSH 3rd Generation 1.56 04/20/17 09:40: Sodium 138, Potassium 3.7, Chloride 106, Carbon Dioxide 23, Anion Gap 12, BUN 18, Creatinine 0.6 L, Est GFR ( Amer) > 60, Est GFR ( Non-Af Amer) > 60, Random Glucose 151 H, Calcium 9.2, Total Bilirubin 0.1 L, AST 48 H, ALT 30, Alkaline Phosphatase 73, Total Protein 7.2, Albumin 3.5, Globulin 3.8, Albumin/Globulin Ratio 0.9 L 04/20/17 09:40: WBC 6.6 D, RBC 3.41 L, Hgb 10.8 L, Hct 33.3 L, MCV 97.7, MCH 31.7, MCHC 32.4, RDW 13.5, Plt Count 455 H, MPV 8.9 04/19/17 07:45: Sodium 137, Potassium 4.5, Chloride 103, Carbon Dioxide 29, Anion Gap 10, BUN 16, Creatinine 0.7, Est GFR ( Amer) > 60, Est GFR (Non- Af Amer) > 60, Random Glucose 100, Calcium 9.7, Total Bilirubin 0.2, AST 51 H D , ALT 31, Alkaline Phosphatase 73, Total Protein 8.3, Albumin 4.0, Globulin 4.2 , Albumin/Globulin Ratio 1.0 L 04/19/17 07:45: WBC 9.2, RBC 3.94, Hgb 12.5, Hct 38.9, MCV 98.7 D, MCH 31.7, MCHC 32.1, RDW 13.6, Plt Count 558 H, MPV 9.2 04/17/17 03:34: Urine Opiates Screen Negative, Urine Methadone Screen Negative, Ur Barbiturates Screen Negative, Ur Phencyclidine Scrn Negative, Ur Amphetamines Screen Negative, U Benzodiazepines Scrn Negative, U Oth Cocaine Metabols Positive H, U Cannabinoids Screen Positive H 04/17/17 03:34: Urine Color Yellow, Urine Appearance Clear, Urine pH 7.0, Ur Specific [place] 1.010, Urine Protein Negative, Urine Glucose (UA) Negative, Urine Ketones Negative, Urine Blood Trace-lysed H, Urine Nitrate Negative, Urine Bilirubin Negative, Urine Urobilinogen 1.0 H, Ur Leukocyte Esterase Small H, Urine RBC 0 - 2, Urine WBC 1 - 3, Ur Epithelial Cells 0 - 2, Amorphous Sediment Few, Urine Bacteria Few, Urine HCG, Qual Negative 04/16/17 22:50: Alcohol, Quantitative 20 H 04/16/17 22:50: Salicylates < 1 L, Acetaminophen < 10.0 L 04/16/17 22:50: Sodium 135, Potassium 3.4 L, Chloride 100, Carbon Dioxide 24, Anion Gap 15, BUN 15, Creatinine 0.9, Est GFR ( Amer) > 60, Est GFR (Non- Af Amer) > 60, Random Glucose 82, Calcium 9.3, Total Bilirubin 0.3, AST 31, ALT 32, Alkaline Phosphatase 75, Total Protein 7.8, Albumin 3.9, Globulin 3.9, Albumin/Globulin Ratio 1.0 L 04/16/17 22:50: WBC 8.4 D, RBC 3.44 L, Hgb 10.9 L, Hct 32.6 L, MCV 94.8, MCH 31.7, MCHC 33.4, RDW 13.0, Plt Count 586 H, MPV 8.8, Gran % 66.4, Lymph % (Auto ) 24.5, [place] % (Auto) 7.5 H, Eos % (Auto) 1.0 L, Baso % (Auto) 0.6, Gran # 5.58 , Lymph # 2.1, [place] # 0.6, Eos # 0.1, Baso # 0.05 Vital Signs Temp Pulse Pulse Resp BP Pulse Ox 04/20/17 06:56 97.9 F 80 20 126/85 04/19/17 07:37 97.9 F 102 H 20 116/75 04/17/17 11:16 72 16 04/17/17 05:29 93 H 18 112/62 98 04/17/17 03:29 92 H 18 114/63 98 04/17/17 01:29 95 H 18 116/64 98 04/16/17 23:29 98 H 20 115/65 97 04/16/17 21:27 126 H 24 114/62 97 Temp Pulse Resp BP Pulse Ox 97.6 F 76 20 124/78 98 04/21/17 07:01 04/21/17 07:01 04/21/17 07:01 04/21/17 07:01 04/17/17 05:29 Temp Pulse Resp BP Pulse Ox 97.3 F L 103 H 20 118/72 98 04/22/17 07:43 04/22/17 16:09 04/22/17 07:43 04/22/17 16:09 04/17/17 05:29 Laboratory Results - last 24 hr 04/27/17 04/27/17 04/27/17 11:35 11:35 11:35 WBC 8.3 D RBC 3.33 L Hgb 10.4 L Hct 32.5 L MCV 97.6 MCH 31.2 MCHC 32.0 RDW 13.6 Plt Count 446 MPV 8.8 Sodium 138 Potassium 4.5 Chloride 100 Carbon Dioxide 28 Anion Gap 15 BUN 26 H Creatinine 0.6 L Est GFR ( Amer) > 60 Est GFR (Non-Af Amer) > 60 Random Glucose 115 H Calcium 9.6 Total Bilirubin 0.2 AST 71 H D ALT 72 H Alkaline Phosphatase 75 Total Protein 7.5 Albumin 3.7 Globulin 3.7 Albumin/Globulin Ratio 1.0 L Urine Color Yellow Urine Appearance Clear Urine pH 7.0 Ur Specific [place] 1.010 Urine Protein Negative Urine Glucose (UA) Negative Urine Ketones Negative Urine Blood Negative Urine Nitrate Negative Urine Bilirubin Negative Urine Urobilinogen 0.2 Ur Leukocyte Esterase Negative Temp Pulse Resp BP Pulse Ox 98.3 F 94 H 18 109/76 100 04/27/17 07:10 04/27/17 07:10 04/27/17 07:10 04/27/17 07:10 04/27/17 07:10 Abnormal Lab Results 04/27/17 11:35 Amylase 136 H Lipase 149 Temp Pulse Resp BP Pulse Ox 98.0 F 100 H 20 125/62 100 04/28/17 07:31 04/28/17 07:31 04/28/17 07:31 04/28/17 07:31 04/27/17 07:10 DSM 5 Symptoms Update: shortly pt is 47yo female with history of Schizoaffective Disorder, Anxiety, Borderline Personality Disorder, h/o polysubstance abuse and dependence (crack, cocaine, MJA), multiple psychiatric admissions-most recently was in this facility February 2017, noncompliance with medications and follow up apps, pt came to the ED of [facility] who was admitted to our psychiatric unit for depression, SI and derogatory hallucinations in the context of crack/cocaine and MJA use. pt was not able to contract for safety, needed further evaluation and stabilization. in the ED "I am tired of this f* world", "I do not like me", and "I am killing myself with drugs". [facility] and RN. pt presented with childlike demeanor, was asking about discharge, pt seems to be in the hernadez to go to the rehab, express her willingness to go and maintain her sobriety, pt wrote a letter, saying that she will try her best not to relapse on drugs. pt said she is ready to go, at the same time pt has episodes of being tearful, irritability, impulsivity, but overall much better. no signs of psychosis, last hallucinations over the weekend "blue wig which turned into snake", CBC, CMP, urine analysis, which all came back negative and within normal limits. pt is intrusive, childlike demeanor. pt tolerates meds well, no side effects observed or reported, AIMS 0, no EPS. Diagnostic Results: schizoaffective d/o panic disorder cannabis dependence borderline personality d/o r/o antisocial personality disorder Medication Change: Yes (klonopin d/c) Medical Record Reviewed: Yes Consults ordered or reviewed: medical consult appreciated pt has UTI cipro started pt was seen by GI team for constipation input appreciated Mental Status Examination - Cognitive Function Orientation: Person, Place, Situation, Time Memory: Intact Attention: WNL Concentration: Poor (better) Association: Loose - Mood Mood: Depressed ("I am better..") - Affect Affect: Constricted (but more reactive, mood congruent), Other (emotional) - Formal Thought Process Formal Thought Process: Hallucinations (denied today), Delusions (deneid), Paranoia (denied) - Suicidal Ideation Suicidal Ideation: No - Homicidal Ideation Homicidal Ideation: No Goal/Treatment Plan - Goal/Treatment Plan Need for Continued Stay: Remain at risks for inpatient hospitalization, Severe depression anxiety, Discharge may exacerbated symptoms, Severe functional impairment Progress Toward Problem(s) and Goals/Treatment Plan: Milieu/structure/supportive therapy Medical consult was called SW consultation for discharge plan, pt wants to go to [facility] inpatient rehab Med management Nicotine patch seroquel 200mg po bid and 400hs for psychosis klonopin d/c vistaril 50mg po tid PRN anxiety neurontin 800mg po tid for cravings ambien 10mg po hs for insomnia prn trazodone 100mg po hs prnfor insomnia PRN meds Haldol/benadryl/ativan Family involvement Follow up on labs Will monitor closely Pt was educated about risk/benefits and alternatives of medications, coping strategies (safety plan, suicide prevention), relapse prevention, importance of follow up with psychiatrist and therapist, stay away from drugs/alcohol/smoking Estimated Date of D/C: 04/30/17
[2017-04-28] MEDS ORDERED: Bisacodyl 5mg EC Tab PO ONE (17:36)
[2017-04-28] MEDS: POLYETHYLENE GLYCOL 3350 17 GM/Dose PACKET PO SCH (18:05)
--- NOTE | 2017-04-28 19:19 | PN ---
DATE: SUBJECTIVE: I saw her earlier this morning. She is walking around. She is eating. She is moving her bowels, but she feels very constipated. I am going to give her Dulcolax suppository today to help her bowels and a Gastroenterology consult. MEDICATIONS: She is on Ambien, Ativan, Benadryl, Colace, Desyrel, Enulose, Haldol, Klonopin, Lac-Hydrin, Maalox, milk of magnesia, Neurontin, Nicoderm, nystatin oral suspension, [place] spray, Seroquel, Thera-Tabs, Tylenol, and Vistaril. OBJECTIVE: VITAL SIGNS: 98 temperature, 100 pulse, 125/62 blood pressure, 20 respiratory rate, 100% O2 saturation on room air. HEENT: Head is atraumatic and normocephalic. Throat is better. No thrush, clear. NECK: Supple. HEART: Regular rate. LUNGS: Decreased breath sounds, but clear to auscultation. ABDOMEN: Soft. Positive bowel sounds, may be mildly distended but no guarding, no rebound. EXTREMITIES: With no edema. LABORATORY DATA: She has 8.3 white count, 10.4 hemoglobin, 446 platelets. 138 sodium, potassium 4.5, BUN 26, creatinine 0.6. She has to drink more water constipated. Glucose is 115, AST is 71, ALT is 72, alkaline phosphatase is 75, it is elevated, amylase is 136 and lipase is 149 with a TSH of 1.56. ASSESSMENT AND PLAN: She is being seen by Psychiatry, Podiatry. I am going to order GI to see your plus a suppository. I will get their opinion on her chronic constipation. The patient has low potassium; marijuana, alcohol and cocaine abuse; bipolar disorder; dry skin; thrush; constipation; and urinary tract infection. Nate Smiley DO [facility]
[2017-04-29] MEDS: Nystatin 100,000 Units/ml Oral Susp 5 ml UD PO SCH ×4 (09:40→21:09)
[2017-04-29] MEDS: Multivitamin With Minerals Tab PO SCH (09:41)
[2017-04-29] MEDS: POLYETHYLENE GLYCOL 3350 17 GM/Dose PACKET PO SCH ×2 (09:41→16:16)
[2017-04-29] MEDS: Ammonium Lactate 12% Lotion (225 g) EXT SCH ×2 (09:42→16:17)
[2017-04-29 13:46] LABS: PH,URINE 7.5 (4.7-8.0); URINE BILIRUBIN NEGATIVE (NEGATIVE); URINE BLOOD NEGATIVE (NEGATIVE); URINE GLUCOSE (UA) NEGATIVE (NEGATIVE); URINE LEUKOCYTE ESTERASE NEGATIVE Leu/uL (NEGATIVE); URINE NITRATE NEGATIVE (NEGATIVE); URINE PROTEIN NEGATIVE mg/dL (<30 mg/dL); URINE UROBILINOGEN 0.2 E.U./dL (<1 E.U./dL)
[2017-04-29 13:48] LABS: URINE APPEARANCE CLEAR (CLEAR); URINE COLOR YELLOW (YELLOW)
--- NOTE | 2017-04-29 14:30 | PN ---
DATE: SUBJECTIVE: I saw Bárbara resting comfortably in bed. She slept well. She still tells me she is very constipated, does not move her bowels well. I have tried her on many medications. I will now get GI consult. MEDICATIONS: She is on Ambien, Ativan, Benadryl, Colace, Desyrel, Dulcolax, Haldol, Lac-Hydrin, Maalox, milk of magnesia, MiraLax, Neurontin, Nicoderm, nystatin, [place] spray, Seroquel, Thera-Tabs, Tylenol and Vistaril. PHYSICAL EXAMINATION: VITAL SIGNS: 98 temp, 95 pulse, 109/72 blood pressure, 20 respiratory rate, 100% O2 saturation on room air. HEAD: Atraumatic, normocephalic. HEART: Regular rate. LUNGS: Clear to auscultation. ABDOMEN: Soft. Positive bowel sounds. Nontender. Mildly distended belly, but not terrible, she has been worse. EXTREMITIES: No edema. LABORATORY DATA: Last labs on 04/27/2017 and she did well. ASSESSMENT AND PLAN: She is having this constipation that just would not seem to leave her. She is also having now a urinary tract infection. She has urinary tract infection, thrush, constipation, bipolar, dry skin, marijuana, alcohol and cocaine abuse. I am going to put her on antibiotic, some sulfa, some Bactrim. We will see what GI has to say and we will follow along.re check a ua cs Nate Smiley DO [facility]
--- NOTE | 2017-04-29 15:34 | PCM.PYCHPN ---
Psychiatric Progress Note - Psychiatric Progress Note Patient seen today, length of contact: 30min Patient Chief Complaint: "I feel better, I think I am ready to go..." Problems Identified/Issues Discussed: Suicide/ homicide prevention, past psychiatric h/o, current psychiatric symptoms , medical problems, risk/benefits and alternatives of medications, medications compliance, coping strategies, substance abuse h/o, relapse prevention, importance of follow up with psychiatrist and therapist, discharge plan. Medical Problems: UTI abx started pt c/o constipation, which is better now Diagnostic Results: 04/20/17 09:40 04/20/17 09:40 Lab Results 04/20/17 09:40: TSH 3rd Generation 1.56 04/20/17 09:40: Sodium 138, Potassium 3.7, Chloride 106, Carbon Dioxide 23, Anion Gap 12, BUN 18, Creatinine 0.6 L, Est GFR ( Amer) > 60, Est GFR ( Non-Af Amer) > 60, Random Glucose 151 H, Calcium 9.2, Total Bilirubin 0.1 L, AST 48 H, ALT 30, Alkaline Phosphatase 73, Total Protein 7.2, Albumin 3.5, Globulin 3.8, Albumin/Globulin Ratio 0.9 L 04/20/17 09:40: WBC 6.6 D, RBC 3.41 L, Hgb 10.8 L, Hct 33.3 L, MCV 97.7, MCH 31.7, MCHC 32.4, RDW 13.5, Plt Count 455 H, MPV 8.9 04/19/17 07:45: Sodium 137, Potassium 4.5, Chloride 103, Carbon Dioxide 29, Anion Gap 10, BUN 16, Creatinine 0.7, Est GFR ( Amer) > 60, Est GFR (Non- Af Amer) > 60, Random Glucose 100, Calcium 9.7, Total Bilirubin 0.2, AST 51 H D , ALT 31, Alkaline Phosphatase 73, Total Protein 8.3, Albumin 4.0, Globulin 4.2 , Albumin/Globulin Ratio 1.0 L 04/19/17 07:45: WBC 9.2, RBC 3.94, Hgb 12.5, Hct 38.9, MCV 98.7 D, MCH 31.7, MCHC 32.1, RDW 13.6, Plt Count 558 H, MPV 9.2 04/17/17 03:34: Urine Opiates Screen Negative, Urine Methadone Screen Negative, Ur Barbiturates Screen Negative, Ur Phencyclidine Scrn Negative, Ur Amphetamines Screen Negative, U Benzodiazepines Scrn Negative, U Oth Cocaine Metabols Positive H, U Cannabinoids Screen Positive H 04/17/17 03:34: Urine Color Yellow, Urine Appearance Clear, Urine pH 7.0, Ur Specific [place] 1.010, Urine Protein Negative, Urine Glucose (UA) Negative, Urine Ketones Negative, Urine Blood Trace-lysed H, Urine Nitrate Negative, Urine Bilirubin Negative, Urine Urobilinogen 1.0 H, Ur Leukocyte Esterase Small H, Urine RBC 0 - 2, Urine WBC 1 - 3, Ur Epithelial Cells 0 - 2, Amorphous Sediment Few, Urine Bacteria Few, Urine HCG, Qual Negative 04/16/17 22:50: Alcohol, Quantitative 20 H 04/16/17 22:50: Salicylates < 1 L, Acetaminophen < 10.0 L 04/16/17 22:50: Sodium 135, Potassium 3.4 L, Chloride 100, Carbon Dioxide 24, Anion Gap 15, BUN 15, Creatinine 0.9, Est GFR ( Amer) > 60, Est GFR (Non- Af Amer) > 60, Random Glucose 82, Calcium 9.3, Total Bilirubin 0.3, AST 31, ALT 32, Alkaline Phosphatase 75, Total Protein 7.8, Albumin 3.9, Globulin 3.9, Albumin/Globulin Ratio 1.0 L 04/16/17 22:50: WBC 8.4 D, RBC 3.44 L, Hgb 10.9 L, Hct 32.6 L, MCV 94.8, MCH 31.7, MCHC 33.4, RDW 13.0, Plt Count 586 H, MPV 8.8, Gran % 66.4, Lymph % (Auto ) 24.5, [place] % (Auto) 7.5 H, Eos % (Auto) 1.0 L, Baso % (Auto) 0.6, Gran # 5.58 , Lymph # 2.1, [place] # 0.6, Eos # 0.1, Baso # 0.05 Vital Signs Temp Pulse Pulse Resp BP Pulse Ox 04/20/17 06:56 97.9 F 80 20 126/85 04/19/17 07:37 97.9 F 102 H 20 116/75 04/17/17 11:16 72 16 04/17/17 05:29 93 H 18 112/62 98 04/17/17 03:29 92 H 18 114/63 98 04/17/17 01:29 95 H 18 116/64 98 04/16/17 23:29 98 H 20 115/65 97 04/16/17 21:27 126 H 24 114/62 97 Temp Pulse Resp BP Pulse Ox 97.6 F 76 20 124/78 98 04/21/17 07:01 04/21/17 07:01 04/21/17 07:01 04/21/17 07:01 04/17/17 05:29 Temp Pulse Resp BP Pulse Ox 97.3 F L 103 H 20 118/72 98 04/22/17 07:43 04/22/17 16:09 04/22/17 07:43 04/22/17 16:09 04/17/17 05:29 Laboratory Results - last 24 hr 04/27/17 04/27/17 04/27/17 11:35 11:35 11:35 WBC 8.3 D RBC 3.33 L Hgb 10.4 L Hct 32.5 L MCV 97.6 MCH 31.2 MCHC 32.0 RDW 13.6 Plt Count 446 MPV 8.8 Sodium 138 Potassium 4.5 Chloride 100 Carbon Dioxide 28 Anion Gap 15 BUN 26 H Creatinine 0.6 L Est GFR ( Amer) > 60 Est GFR (Non-Af Amer) > 60 Random Glucose 115 H Calcium 9.6 Total Bilirubin 0.2 AST 71 H D ALT 72 H Alkaline Phosphatase 75 Total Protein 7.5 Albumin 3.7 Globulin 3.7 Albumin/Globulin Ratio 1.0 L Urine Color Yellow Urine Appearance Clear Urine pH 7.0 Ur Specific [place] 1.010 Urine Protein Negative Urine Glucose (UA) Negative Urine Ketones Negative Urine Blood Negative Urine Nitrate Negative Urine Bilirubin Negative Urine Urobilinogen 0.2 Ur Leukocyte Esterase Negative Temp Pulse Resp BP Pulse Ox 98.3 F 94 H 18 109/76 100 04/27/17 07:10 04/27/17 07:10 04/27/17 07:10 04/27/17 07:10 04/27/17 07:10 Abnormal Lab Results 04/27/17 11:35 Amylase 136 H Lipase 149 Temp Pulse Resp BP Pulse Ox 98.0 F 100 H 20 125/62 100 04/28/17 07:31 04/28/17 07:31 04/28/17 07:31 04/28/17 07:31 04/27/17 07:10 DSM 5 Symptoms Update: shortly pt is 47yo female with history of Schizoaffective Disorder, Anxiety, Borderline Personality Disorder, h/o polysubstance abuse and dependence (crack, cocaine, MJA), multiple psychiatric admissions-most recently was in this facility February 2017, noncompliance with medications and follow up apps, pt came to the ED of [facility] who was admitted to our psychiatric unit for depression, SI and derogatory hallucinations in the context of crack/cocaine and MJA use. pt was not able to contract for safety, needed further evaluation and stabilization. in the ED "I am tired of this f* world", "I do not like me", and "I am killing myself with drugs". pt was seen and examined today at the treatment team room. pt presented with childlike demeanor, was asking about discharge pt said that now she wants to go home because she needs to pick some letters, most likely pt is craving for drugs, pt said that she will go to inpatient rehab herself. pt willing to go to the [facility], at the same time pt said if bed will be available tomorrow, she will go to [facility] pt is emotional, tearful, irritable, impulsive, but overall much better. no signs of psychosis, last hallucinations over the weekend pt is intrusive, childlike demeanor. pt tolerates meds well, no side effects observed or reported, AIMS 0, no EPS. Diagnostic Results: schizoaffective d/o panic disorder cannabis dependence borderline personality d/o r/o antisocial personality disorder Medication Change: Yes (klonopin d/c) Medical Record Reviewed: Yes Mental Status Examination - Cognitive Function Orientation: Person, Place, Situation, Time Memory: Intact Attention: WNL Concentration: Poor (better) Association: Loose - Affect Affect: Constricted (but more reactive, mood congruent), Other (emotional) - Formal Thought Process Formal Thought Process: Hallucinations (denied today), Delusions (deneid), Paranoia (denied) - Suicidal Ideation Suicidal Ideation: No - Homicidal Ideation Homicidal Ideation: No Goal/Treatment Plan - Goal/Treatment Plan Need for Continued Stay: Remain at risks for inpatient hospitalization, Severe depression anxiety, Discharge may exacerbated symptoms, Severe functional impairment Progress Toward Problem(s) and Goals/Treatment Plan: Milieu/structure/supportive therapy Medical consult was called SW consultation for discharge plan, pt wants to go to [facility] inpatient rehab Med management Nicotine patch seroquel 200mg po bid and 400hs for psychosis klonopin d/c vistaril d/c neurontin 800mg po tid for cravings ambien 10mg po hs for insomnia prn trazodone 100mg po hs prnfor insomnia PRN meds Haldol/benadryl/ativan Family involvement Follow up on labs Will monitor closely Pt was educated about risk/benefits and alternatives of medications, coping strategies (safety plan, suicide prevention), relapse prevention, importance of follow up with psychiatrist and therapist, stay away from drugs/alcohol/smoking Estimated Date of D/C: 04/30/17
[2017-04-30 07:43] VITALS: BP 102/67; PULSE 109; TEMP 97.9
[2017-04-30] MEDS: Nystatin 100,000 Units/ml Oral Susp 5 ml UD PO SCH (08:22)
[2017-04-30] MEDS: Multivitamin With Minerals Tab PO SCH (08:23)
[2017-04-30] MEDS: Ammonium Lactate 12% Lotion (225 g) EXT SCH (08:31)
[2017-04-30] MEDS: POLYETHYLENE GLYCOL 3350 17 GM/Dose PACKET PO SCH (08:31)
--- NOTE | 2017-04-30 16:23 | PN ---
DATE: SUBJECTIVE: I saw Bárbara in her room. She is comfortable. She is in good spirits. I think she is going home today to a psychiatrist. She is on Ambien, Ativan, Benadryl, Colace, Desyrel, Haldol, lactic acid, Lac-Hydrin, Maalox, milk of magnesia, MiraLax, Neurontin, Nicoderm, Nystatin, [place] spray, Seroquel, Tylenol, Vistaril, Thera-Tabs. PHYSICAL EXAMINATION VITAL SIGNS: Temperature 97.9, pulse 109, blood pressure 102/67, respiratory rate 20. HEENT: Head is atraumatic and normocephalic. HEART: Regular rate. LUNGS: Clear to auscultation. ABDOMEN: Soft. She did not move her bowels. She is having a big problem with constipation, greater than 20 seconds. EXTREMITIES: No edema. ASSESSMENT AND PLAN: She is being seen by numerous doctors; Psychiatry, GI. she takes her medications for the bowel. She is not to do cocaine or drink alcohol or smoke marijuana anymore. She trouble to take her medications. Hopefully, she will do well. She has had drug abuse, bipolar, dry skin, constipation, urinary tract infection. Nate Smiley DO MTDD
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
== END 2017-04-30 13:57 | disposition home or self-care (01) | DRG 885 ==
LOC: ED 21:27 → ERH 04-17 06:13 → PSYC 04-17 06:51
PROVIDERS: ADMIT Psychiatry & Neurology Psychiatry; ATTEND Psychiatry & Neurology Psychiatry
PROC: GZ3ZZZZ Medication Management (ICD-10-PCS; principal; 2017-04-17)
DX: F25.9 Schizoaffective disorder, unspecified (principal); B37.0 Candidal stomatitis; E46 Unspecified protein-calorie malnutrition; F14.20 Cocaine dependence, uncomplicated; F12.20 Cannabis dependence, uncomplicated; Z91.14 Patient's other noncompliance with medication regimen; N39.0 Urinary tract infection, site not specified; Z68.1 Body mass index [BMI] 19.9 or less, adult; F31.9 Bipolar disorder, unspecified; F60.3 Borderline personality disorder; L85.3 Xerosis cutis; K59.09 Other constipation; K29.70 Gastritis, unspecified, without bleeding; F41.0 Panic disorder [episodic paroxysmal anxiety]; G47.00 Insomnia, unspecified; D64.9 Anemia, unspecified; F17.210 Nicotine dependence, cigarettes, uncomplicated

== ENCOUNTER 2017-12-11 03:54 | Inpatient (IN) | payer MEDICARE, OTHER ==
[2017-12-11 04:04] VITALS: BMI 14.6
[2017-12-11 04:13] VITALS: O2SAT 98
--- NOTE | 2017-12-11 04:42 | ED PDOC ---
Arrival/HPI - General Chief Complaint: Psychiatric Evaluation Time Seen by Provider: 12/11/17 03:56 Historian: Patient - History of Present Illness Narrative History of Present Illness (Text): 47 year old female, with a past medical history that includes depression, anxiety, borderline personality, schizophrenia, and suicidal behavior, presents to the emergency department for evaluation status post hallucinations. Patient is suicidal but has no plan. History limited due to lack of cooperation. Patient has no other physical complaints. Patien denies any fever, chills, headache, dizziness, chest pain, shortness of breath, cough, abdominal pain, nausea, vomiting, diarrhea, back pain, neck pain, urinary/bowel changes, or any other complaint. Time/Duration: Prior to Arrival Past Medical History - Provider Review Nursing Documentation Reviewed: Yes - Infectious Disease Hx of Infectious Diseases: None - Tetanus Immunization Tetanus Immunization: Unknown - Past Medical History Past Medical History: No Previous - Cardiac Hx Cardiac Disorders: No Hx Hypertension: No - Pulmonary Hx Respiratory Disorders: No Hx Tuberculosis: No - Neurological Hx Neurological Disorder: No HX Cerebrovascular Accident: No Hx Seizures: No - HEENT Hx HEENT Disorder: No - Renal Hx Renal Disorder: No - Endocrine/Metabolic Hx Endocrine Disorders: No - Hematological/Oncological Hx Blood Disorders: No Hx Cancer: No - Integumentary Hx Dermatological Disorder: No - Musculoskeletal/Rheumatological Hx Musculoskeletal Disorders: No Hx Falls: No - Gastrointestinal Hx Gastrointestinal Disorders: No - Genitourinary/Gynecological Hx Sexually Transmitted Diseases: No Hx Urinary Tract Infection: Yes - Psychiatric Hx Psychophysiologic Disorder: Yes Hx Anxiety: Yes Hx Bipolar Disorder: Yes Hx Depression: Yes Hx Substance Use: Yes - Past Surgical History Past Surgical History: No Previous - Surgical History Other/Comment: Left index surgery - Anesthesia Hx Anesthesia: No - Suicidal Assessment Feels Threatened In Home Enviroment: No Family/Social History - Physician Review Nursing Documentation Reviewed: Yes Family/Social History: No Known Family HX Smoking Status: Heavy Smoker > 10 Cigarettes Daily Hx Alcohol Use: Yes Hx Substance Use: Yes Substance used: crack, heroin, marijuana Hx Substance Use Treatment: Yes Allergies/Home Meds Allergies/Adverse Reactions: Allergies Penicillins Allergy (Verified 12/12/17 01:34) RASH Review of Systems - Review of Systems Constitutional: Normal. absent: Fevers, Night Sweats Eyes: Normal ENT: Normal Respiratory: Normal. absent: SOB, Cough Cardiovascular: Normal. absent: Chest Pain Gastrointestinal: Normal. absent: Abdominal Pain, Diarrhea, Nausea, Vomiting Genitourinary Female: Normal. absent: Urine Output Changes Musculoskeletal: Normal. absent: Back Pain, Neck Pain Skin: Normal Neurological: Normal. absent: Headache, Dizziness Endocrine: Normal Hemo/Lymphatic: Normal Psychiatric: Suicidal Ideation Physical Exam Vital Signs Reviewed: Yes Vital Signs Temp Pulse Resp BP Pulse Ox 12/11/17 07:51 81 18 115/78 98 12/11/17 04:10 18 12/11/17 04:06 97.7 F 75 18 108/73 98 Temperature: Afebrile Blood Pressure: Normal Pulse: Regular Respiratory Rate: Normal Appearance: Positive for: Well-Appearing, Non-Toxic, Comfortable Pain Distress: None Mental Status: Positive for: Alert and Oriented X 3 - Systems Exam Head: Present: Atraumatic, Normocephalic Pupils: Present: PERRL Extroacular Muscles: Present: EOMI Conjunctiva: Present: Normal Mouth: Present: Moist Mucous Membranes Neck: Present: Normal Range of Motion Respiratory/Chest: Present: Clear to Auscultation, Good Air Exchange. No: Respiratory Distress, Accessory Muscle Use Cardiovascular: Present: Regular Rate and Rhythm, Normal S1, S2. No: Murmurs Abdomen: No: Tenderness, Distention, Peritoneal Signs Back: Present: Normal Inspection Upper Extremity: Present: Normal Inspection. No: Cyanosis, Edema Lower Extremity: Present: Normal Inspection. No: Edema Neurological: Present: GCS=15, CN II-XII Intact, Speech Normal Skin: Present: Warm, Dry, Normal Color. No: Rashes Psychiatric: Present: Alert, Oriented x 3, Normal Insight, Normal Concentration Medical Decision Making ED Course and Treatment: 12/11/17 04:43 Impression: 47 year old female presents with hallucinations. Plan: -- Labs -- EKG -- Chest X-ray -- Urinalysis -- Reassess and disposition Prior Visits: Notes and results from previous visits were reviewed. Progress Notes: - Lab Interpretations Lab Results: 12/11/17 04:28 12/11/17 04:28 Lab Results 12/11/17 06:50: Urine Opiates Screen Positive H, Urine Methadone Screen Negative , Ur Barbiturates Screen Negative, Ur Phencyclidine Scrn Negative, Ur Amphetamines Screen Negative, U Benzodiazepines Scrn Negative, U Oth Cocaine Metabols Positive H, U Cannabinoids Screen Positive H 12/11/17 06:50: Urine Color Yellow, Urine Appearance Clear, Urine pH 6.5, Ur Specific [place] 1.020, Urine Protein Trace H, Urine Glucose (UA) Negative, Urine Ketones Negative, Urine Blood Trace-intact H, Urine Nitrate Negative, Urine Bilirubin Negative, Urine Urobilinogen 0.2, Ur Leukocyte Esterase Negative , Urine RBC 2 - 5, Urine WBC 1 - 3, Ur Epithelial Cells 4 - 5, Amorphous Sediment Few, Urine Bacteria Mod, Hyaline Casts 0 - 2, Urine HCG, Qual Negative 12/11/17 04:28: Alcohol, Quantitative < 10 12/11/17 04:28: Salicylates < 1 L, Acetaminophen < 10.0 L 12/11/17 04:28: Sodium 139, Potassium 3.3 L, Chloride 106, Carbon Dioxide 28, Anion Gap 9 L, BUN 18, Creatinine 0.7, Est GFR ( Amer) > 60, Est GFR (Non -Af Amer) > 60, Random Glucose 102, Calcium 8.8, Total Bilirubin 0.4, AST 39 H D , ALT 26, Alkaline Phosphatase 73, Total Protein 6.9, Albumin 3.7, Globulin 3.2 , Albumin/Globulin Ratio 1.2 12/11/17 04:28: WBC 9.1, RBC 3.27 L, Hgb 10.3 L, Hct 31.2 L, MCV 95.4, MCH 31.5 , MCHC 33.0, RDW 12.2, Plt Count 373, MPV 8.7, Gran % 80.3 H, Lymph % (Auto) 14.3 L, [place] % (Auto) 4.8, Eos % (Auto) 0.3 L, Baso % (Auto) 0.3, Gran # 7.30 H , Lymph # (Auto) 1.3, [place] # (Auto) 0.4, Eos # (Auto) 0.0, Baso # (Auto) 0.03 - RAD Interpretation Radiology Orders: 12/11/17 04:07 CHEST PORTABLE [RAD] Stat - Medication Orders Current Medication Orders: Acetaminophen (Tylenol 325mg Tab) 650 mg PO Q6H PRN PRN Reason: Pain, moderate (4-7) Bacitracin (Bacitracin) 1 gm TOP BID NINA Last Admin: 12/11/17 18:14 Dose: 1 applic Diphenhydramine HCl (Benadryl) 50 mg IM Q6H PRN PRN Reason: agiation Folic Acid (Folic Acid) 1 mg PO DAILY [facility] Last Admin: 12/11/17 11:39 Dose: Not Given Non-Admin Reason: Patient Refused Gabapentin (Neurontin) 300 mg PO TID NINA PRN Reason: Protocol Last Admin: 12/11/17 18:30 Dose: Not Given Non-Admin Reason: Patient Asleep Haloperidol (Haldol) 5 mg PO Q6H PRN; Protocol PRN Reason: agitation/psychosis Haloperidol Lactate (Haldol) 5 mg IM Q6H PRN; Protocol PRN Reason: agitation/psychosis Levofloxacin (Levaquin) 500 mg PO DAILY NINA PRN Reason: Protocol Stop: 12/14/17 08:01 Last Admin: 12/11/17 18:30 Dose: Not Given Non-Admin Reason: Patient Refused Lorazepam (Ativan) 2 mg IM Q6H PRN PRN Reason: Agitation Lorazepam (Ativan) 2 mg PO Q6 PRN; Protocol PRN Reason: alcohol withdrawals Last Admin: 12/11/17 14:25 Dose: 2 mg Behavioural Document 12/11/17 14:25 RFE (Rec: 12/11/17 14:25 RFE [id number]) Maintenance Maintenance Dose No Nonmedicinal Nonmedicinal Interventions Redirect Therapeutic Communication Behavior Behavior for Medication: Anxiety Re-Assess: Reassess Psych Meds Document 12/11/17 15:25 RFE (Rec: 12/11/17 16:08 RFE [id number]) Reassess Psych Med Effective Nicotine (Nicoderm Cq) 1 patch TD DAILY [facility] Olanzapine (Zyprexa Zydis) 5 mg PO AMHS NINA PRN Reason: Protocol Last Admin: 12/11/17 22:33 Dose: Behavioural Document 12/11/17 22:33 TW (Rec: 12/11/17 22:33 TW [facility] [id number]) Maintenance Maintenance Dose Yes Rabies Vaccine Human Diploid Cell (Rabavert Vaccine Inj) 2.5 units IM .ONCE ONE Stop: 12/14/17 15:06 Rabies Vaccine Human Diploid Cell (Rabavert Vaccine Inj) 2.5 units IM .ONCE ONE Stop: 12/18/17 15:06 Rabies Vaccine Human Diploid Cell (Rabavert Vaccine Inj) 2.5 units IM .ONCE ONE Stop: 12/25/17 15:06 Thiamine HCl (Vitamin B1 Tab) 100 mg PO DAILY NINA Last Admin: 12/11/17 11:39 Dose: Not Given Non-Admin Reason: Patient Refused Trazodone HCl (Desyrel) 50 mg PO HS NINA Last Admin: 12/11/17 22:32 Dose: Discontinued Medications Rabies Immune Globulin (Imogam) 720 intlu IM .ONCE ONE Stop: 12/11/17 15:01 Last Admin: 12/11/17 17:57 Dose: 720 intlu IM Administration Charges Document 12/11/17 17:57 RFE (Rec: 12/11/17 17:58 RFE [id number]) Injection Site MAR Injection Site Left Gluteus Bharath Charges for Administration # of IM Administrations 1 Immunization Registry Document 12/11/17 17:57 RFE (Rec: 12/11/17 17:58 RFE [id number]) Immunization Registry Consent Date 04/16/17 Rabies Vaccine Human Diploid Cell (Rabavert Vaccine Inj) 2.5 units IM .ONCE ONE Stop: 12/11/17 16:46 Last Admin: 12/11/17 18:02 Dose: 2.5 units MAR Immunization Data Document 12/11/17 18:02 RFE (Rec: 12/11/17 18:03 RFE [id number]) Immunization Data Vaccine Information Sheet Given Yes Vaccine Information Sheet Given Date 12/11/17 Immunization Registry Document 12/11/17 18:02 RFE (Rec: 12/11/17 18:03 RFE [id number]) Immunization Registry Consent Date 04/16/17 Tetanus/Reduced Diphtheria/Acell Pertussis (Boostrix Vaccine Inj) 0.5 ml IM .ONCE ONE Stop: 12/11/17 13:36 Last Admin: 12/11/17 14:11 Dose: 0.5 ml MAR Immunization Data Document 12/11/17 14:11 RFE (Rec: 12/11/17 14:11 RFE [id number]) Immunization Data Vaccine Information Sheet Given Yes Vaccine Information Sheet Given Date 12/11/17 Immunization Registry Document 12/11/17 14:11 RFE (Rec: 12/11/17 14:11 RFE [id number]) Immunization Registry Consent Date 04/16/17 - Scribe Statement The provider has reviewed the documentation as recorded by the Scribe Peter Alejandro Provider Niharikaibe Attestation: All medical record entries made by the Prabhjot were at my direction and personally dictated by me. I have reviewed the chart and agree that the record accurately reflects my personal performance of the history, physical exam, medical decision making, and the department course for this patient. I have also personally directed, reviewed, and agree with the discharge instructions and disposition. Disposition/Present on Arrival - Present on Arrival Any Indicators Present on Arrival: No History of DVT/PE: No History of Uncontrolled Diabetes: No Urinary Catheter: No History of Decub. Ulcer: No History Surgical Site Infection Following: None - Disposition Have Diagnosis and Disposition been Completed?: Yes Diagnosis: Cocaine abuse, Bipolar 1 disorder Disposition: HOSPITALIZED Disposition Time: 08:30 Patient Problems: Current Active Problems Problem Status Onset Bipolar 1 disorder Acute Cocaine abuse Acute Condition: FAIR
[2017-12-11 04:58] LABS: ACETAMINOPHEN < 10.0 ug/ml (10.0-20.0); SALICYLATE < 1 mg/dL (2.0-20.0)
[2017-12-11 04:59] LABS: ALB/GLOB RATIO 1.2 (1.1-1.8); ALBUMIN 3.7 g/dL (3.0-4.8); ALT/SGPT 26 U/L (7-56); AST/SGOT 39 U/L (14-36); BLOOD UREA NITROGEN 18 mg/dL (7-21); CALCIUM 8.8 mg/dL (8.4-10.5); GFR NON-AFRICAN AMERICAN > 60
[2017-12-11 05:16] LABS: BASO # 0.03 K/mm3 (0.0-2.0); BASO % 0.3 % (0.0-3.0); EOS % 0.3 % (1.5-5.0); GRAN # 7.3 (1.4-6.5); GRAN % 80.3 % (50.0-68.0); HEMOGLOBIN 10.3 g/dL (12.0-16.0); LYMPH # 1.3 (1.2-3.4); LYMPH % 14.3 % (22.0-35.0); MEAN CELL VOLUME 95.4 fl (80.0-105.0); MEAN CORPUSCULAR HEMOGLOBIN 31.5 pg (25.0-35.0); MEAN PLATELET VOLUME 8.7 fl (7.0-11.0); MONO # 0.4 (0.1-0.6); MONO % 4.8 % (1.0-6.0); RBC 3.27 10^6/uL (3.5-6.1); RED CELL DISTRIBUTION WIDTH 12.2 % (11.5-14.5); WHITE BLOOD COUNT 9.1 10^3/ul (4.5-11.0)
[2017-12-11 07:06] LABS: PH,URINE 6.5 (4.7-8.0); URINE BILIRUBIN NEGATIVE (NEGATIVE); URINE BLOOD TRACE-INTACT (NEGATIVE); URINE GLUCOSE (UA) NEGATIVE (NEGATIVE); URINE LEUKOCYTE ESTERASE NEGATIVE Leu/uL (NEGATIVE); URINE PROTEIN TRACE mg/dL (<30 mg/dL); URINE UROBILINOGEN 0.2 E.U./dL (<1 E.U./dL)
[2017-12-11 07:12] LABS: URINE APPEARANCE CLEAR (CLEAR); URINE COLOR YELLOW (YELLOW)
--- NOTE | 2017-12-11 07:17 | ED PDOC ---
Physical Exam Vital Signs Reviewed: Yes Vital Signs Temp Pulse Resp BP Pulse Ox 12/11/17 07:51 81 18 115/78 98 12/11/17 04:06 97.7 F 75 18 108/73 98 Temperature: Afebrile Blood Pressure: Normal Pulse: Regular Respiratory Rate: Normal Appearance: Positive for: Well-Appearing, Non-Toxic, Comfortable Pain Distress: None Mental Status: Positive for: Alert and Oriented X 3 Medical Decision Making ED Course and Treatment: 12/11/17 07:15 Patient is endorsed to me by Dr. Galvin, patient is a 47 year old female presenting to the emergency department for a psychiatric evaluation. 12/11/17 08:27 Patient has been accepted and admitted into Dr. Carrera's care. - Lab Interpretations Lab Results: 12/11/17 04:28 12/11/17 04:28 Lab Results 12/11/17 06:50: Urine Opiates Screen Positive H, Urine Methadone Screen Negative , Ur Barbiturates Screen Negative, Ur Phencyclidine Scrn Negative, Ur Amphetamines Screen Negative, U Benzodiazepines Scrn Negative, U Oth Cocaine Metabols Positive H, U Cannabinoids Screen Positive H 12/11/17 06:50: Urine Color Yellow, Urine Appearance Clear, Urine pH 6.5, Ur Specific [place] 1.020, Urine Protein Trace H, Urine Glucose (UA) Negative, Urine Ketones Negative, Urine Blood Trace-intact H, Urine Nitrate Negative, Urine Bilirubin Negative, Urine Urobilinogen 0.2, Ur Leukocyte Esterase Negative , Urine RBC 2 - 5, Urine WBC 1 - 3, Ur Epithelial Cells 4 - 5, Amorphous Sediment Few, Urine Bacteria Mod, Hyaline Casts 0 - 2, Urine HCG, Qual Negative 12/11/17 04:28: Alcohol, Quantitative < 10 12/11/17 04:28: Salicylates < 1 L, Acetaminophen < 10.0 L 12/11/17 04:28: Sodium 139, Potassium 3.3 L, Chloride 106, Carbon Dioxide 28, Anion Gap 9 L, BUN 18, Creatinine 0.7, Est GFR ( Amer) > 60, Est GFR (Non -Af Amer) > 60, Random Glucose 102, Calcium 8.8, Total Bilirubin 0.4, AST 39 H D , ALT 26, Alkaline Phosphatase 73, Total Protein 6.9, Albumin 3.7, Globulin 3.2 , Albumin/Globulin Ratio 1.2 12/11/17 04:28: WBC 9.1, RBC 3.27 L, Hgb 10.3 L, Hct 31.2 L, MCV 95.4, MCH 31.5 , MCHC 33.0, RDW 12.2, Plt Count 373, MPV 8.7, Gran % 80.3 H, Lymph % (Auto) 14.3 L, [place] % (Auto) 4.8, Eos % (Auto) 0.3 L, Baso % (Auto) 0.3, Gran # 7.30 H , Lymph # (Auto) 1.3, [place] # (Auto) 0.4, Eos # (Auto) 0.0, Baso # (Auto) 0.03 - RAD Interpretation Radiology Orders: 12/11/17 04:07 CHEST PORTABLE [RAD] Stat Disposition/Present on Arrival - Present on Arrival Any Indicators Present on Arrival: No History of DVT/PE: No History of Uncontrolled Diabetes: No Urinary Catheter: No History of Decub. Ulcer: No History Surgical Site Infection Following: None - Disposition Have Diagnosis and Disposition been Completed?: Yes Diagnosis: Cocaine abuse, Bipolar 1 disorder Disposition: HOSPITALIZED Disposition Time: 08:50 Condition: FAIR
[2017-12-11 07:29] LABS: BARBITURATES, UR NEGATIVE (NEGATIVE)
[2017-12-11 07:31] LABS: HCG,QUALITATIVE URINE NEGATIVE (NEGATIVE)
[2017-12-11 07:33] LABS: BENZODIAZEPINES, UR NEGATIVE (NEGATIVE); OPIATES, UR POSITIVE (NEGATIVE); PHENCYCLIDINE, UR NEGATIVE (NEGATIVE)
[2017-12-11 07:34] LABS: URINE BACTERIA MOD (NEG)
[2017-12-11 07:35] LABS: URINE AMORPHOUS SEDIMENT FEW; URINE HYALINE CAST 0 - 2 /hpf
[2017-12-11] MEDS: OLANZapine 5 mg Disintegrating Tab PO SCH ×2 (11:39→22:33)
--- NOTE | 2017-12-11 12:03 | RAD ---
Date of service: 12/11/2017 HISTORY: psych eval COMPARISON: 04/17/2017 FINDINGS: LUNGS: No active pulmonary disease. PLEURA: No significant pleural effusion identified, no pneumothorax apparent. CARDIOVASCULAR: Normal. OSSEOUS STRUCTURES: No significant abnormalities. VISUALIZED UPPER ABDOMEN: Normal. OTHER FINDINGS: None. IMPRESSION: No active disease. No significant interval change compared to the prior examination(s).
--- NOTE | 2017-12-11 12:13 | PCM.BM ---
<Elvin Pardo - Last Filed: 12/11/17 12:10> Treatment Plan Problems - Problems identified on initial assessmt HOPELESSNESS/HELPLESSNESS Date Initiated: 12/11/17 Time Initiated: 12:10 Assessment reference: HP, NA Status: Active SUICIDAL IDEATION Date Initiated: 12/11/17 Time Initiated: 12:13 Assessment reference: HP Status: Active MEDICATIONS NONADHERENCE Date Initiated: 12/11/17 (N) Time Initiated: 12:13 Assessment reference: HP, NA Status: Active Treatment assets and liabiliti Patient Assests: adapts well, self-reliant, ADL independent, negotiates basic needs Patient Liabilities: physical pain, poor support system, relationship conflicts , substance abuse - Milieu Protocol Maintain good personal hygiene: daily Encourage regular showers, daily Remind patient to perform daily oral care, daily Assist patient to perform ADL's Maintain personal safety: daily Educate patient to report safety concerns to staff, daily Monitor environment for contraband/sharps Medication safety: Monitor for expected outcome, potential side effects: daily, Assess barriers to learning: daily, Assess readiness for medication education: daily Discharge/Continuing Care - Education Needs Education Needs: Patient Medication, Patient Diagnosis/Disease Process, Patient Coping Skills, Patient Anger Management skills, Patient Placement options, Patient Community resources, Patient Activities of Daily Living, Patient Uses of Medical Equipment, Patient Health Practices/Safety, Patient Personal Hygiene/ Grooming, Patient Aftercare Safety Plan <Ines Khoury - Last Filed: 12/11/17 14:05> Family Contact Family involvement: Famliy/SO not involved <Daphnie Carrera - Last Filed: 12/11/17 17:01> - Diagnosis (1) Bipolar 1 disorder Status: Acute Interventions: 12/11/17 17:01 Psychoeducation Psychopharmacology/adjustment of medications as needed/ monitoring possible side effects Monitor blood level of mood stabilizers Evaluate pt on daily basis Compliance with medications and follow up appointments Suicide and homicide risk assessment and prevention, coping strategies, safety plan Relapse prevention Reduction of symptoms Improve functional status Family involvement As outpatient: cognitive behavioral therapy (2) Polysubstance abuse Status: Acute Interventions: 12/11/17 17:01 Monitoring withdrawal symptoms Medical detoxification Pharmacotherapy for alcohol/benzos/opioid dependence Maintaining sobriety Relapse prevention Possible rehabilitation Motivational interviewing 12-step programs: AA meetings <Marcie Jenkins - Last Filed: 12/14/17 12:13>
--- NOTE | 2017-12-11 13:27 | CP.PCM.CON ---
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 Treviño 47 y o female PMHx depression, anxiety, borderline personality disorder, schizophrenia, and suicidal behavior, presented to the ED for eval s/p hallucinations. Pt on triage admitted she was using crack, was suicidal stating that no one liked her, but did not have a plan. Hx in ED and obtained in my encounter with pt limited due to lack of cooperation. Reason for consult was due to L hand pain, pt stated that she was bitten by a dog prior to coming to the ED, stating it was 6 days ago, unprovoked attack, states she was trying to pet the dog. Denied pain currently in affected hand. Pt observed during encounter resting in bed in position, facing the wall and not making eye contact, going in and out of sleep. Unable to obtain 12-point ROS due to pt's lack of cooperation during encounter. PMhx: as listed above PSurgHx: pt denies Allergies: PCN Current meds: Tylenol prn, Folic acid daily, Neurontin 300 mg PO tid, Haldol prn , Ativan prn, Zyprexa 5 mg PO amhs, Thiamine daily, Trazodone 50 mg daily Fam hx: denies Social hx: Pt admitted to crack use on arrival to ED; hx obtained from chart reports smoking > 10 cigarettes/day, denied EtOH abuse Pt does not follow-up with PCP outpatient. Review of Systems - Review of Systems Systems not reviewed;Unavailable: Uncooperative Past Patient History - Infectious Disease Hx of Infectious Diseases: None - Tetanus Immunizations Tetanus Immunization: Unknown - Past Social History Smoking Status: Heavy Smoker > 10 Cigarettes Daily - CARDIAC Hx Cardiac Disorders: No Hx Hypertension: No - PULMONARY Hx Tuberculosis: No - NEUROLOGICAL HX Cerebrovascular Accident: No Hx Seizures: No - HEENT Hx HEENT Problems: No - RENAL Hx Chronic Kidney Disease: No - ENDOCRINE/METABOLIC Hx Endocrine Disorders: No - HEMATOLOGICAL/ONCOLOGICAL Hx Cancer: No Hx Human Immunodeficiency Virus (HIV): No - INTEGUMENTARY Hx Dermatological Problems: No - MUSCULOSKELETAL/RHEUMATOLOGICAL Hx Musculoskeletal Disorders: No Hx Falls: No - GASTROINTESTINAL Hx Gastrointestinal Disorders: No - GENITOURINARY/GYNECOLOGICAL Hx Sexually Transmitted Disorders: No - PSYCHIATRIC Hx Psychophysiologic Disorder: Yes Hx Anxiety: Yes Hx Bipolar Disorder: Yes Hx Depression: Yes Hx Substance Use: Yes - SURGICAL HISTORY Other/Comment: Left index surgery - ANESTHESIA Hx Anesthesia: No Meds Allergies/Adverse Reactions: Allergies Allergy/AdvReac Type Severity Reaction Status Date / Time Penicillins Allergy RASH Verified 12/12/17 01:34 - Medications Medications: Current Medications Acetaminophen (Tylenol 325mg Tab) 650 mg PO Q6H PRN PRN Reason: Pain, moderate (4-7) Bacitracin (Bacitracin) 1 gm TOP BID [facility] Folic Acid (Folic Acid) 1 mg PO DAILY [facility] Last Admin: 12/11/17 11:39 Dose: Not Given Gabapentin (Neurontin) 300 mg PO TID [facility] PRN Reason: Protocol Haloperidol (Haldol) 5 mg PO Q6H PRN; Protocol PRN Reason: agitation/psychosis Lorazepam (Ativan) 2 mg IM Q6H PRN PRN Reason: Agitation Lorazepam (Ativan) 2 mg PO Q6 PRN; Protocol PRN Reason: alcohol withdrawals Olanzapine (Zyprexa Zydis) 5 mg PO AMHS [facility] PRN Reason: Protocol Last Admin: 12/11/17 11:39 Dose: Not Given Thiamine HCl (Vitamin B1 Tab) 100 mg PO DAILY [facility] Last Admin: 12/11/17 11:39 Dose: Not Given Trazodone HCl (Desyrel) 50 mg PO HS [facility] Physical Exam - Constitutional Appears: Non-toxic, No Acute Distress Additional comments: Resting in position in bed, uncooperative to commands, AAOx2 - Head Exam Head Exam: ATRAUMATIC, NORMAL INSPECTION - Eye Exam Eye Exam: EOMI, Normal appearance, PERRL - ENT Exam ENT Exam: Mucous Membranes Moist - Neck Exam Neck exam: Positive for: Full Rom, Normal Inspection - Respiratory Exam Respiratory Exam: Clear to Auscultation Bilateral, NORMAL BREATHING PATTERN - Cardiovascular Exam Cardiovascular Exam: REGULAR RHYTHM, +S1, +S2 - GI/Abdominal Exam GI & Abdominal Exam: Normal Bowel Sounds, Soft. absent: Distended, Guarding, Organomegaly, Rebound, Tenderness - Extremities Exam Extremities exam: Positive for: full ROM, normal capillary refill, pedal pulses present. Negative for: pedal edema Additional comments: Bandage over L hand, cut observed underneath R 5th digit on L palm, sutured, no abnormal drainage or erythema observed coming from site, mild tenderness to palpation at affected area, full active and passive ROM of L hand - Neurological Exam Neurological exam: Alert Additional comments: Oriented x2 - Psychiatric Exam Psychiatric exam: Agitated, Anxious, Depressed, Flat Affect - Skin Skin Exam: Dry, Intact, Normal Color, Warm Results - Vital Signs Recent Vital Signs: Last Vital Signs Temp 97.7 F 12/11/17 04:06 Pulse 81 12/11/17 07:51 Resp 18 12/11/17 07:51 BP 115/78 12/11/17 07:51 Pulse Ox 98 12/11/17 07:51 - Labs Result Diagrams: 12/11/17 04:28 12/11/17 04:28 Assessment & Plan - Assessment and Plan (Free Text) Assessment: 47 y o female PMHx depression, anxiety, borderline personality disorder, schizophrenia, and suicidal behavior, presented to the ED for eval s/p hallucinations. Reason for consult was due to L hand pain, pt stated that she was bitten by a dog prior to coming to the ED, stating it was several days ago. Cut observed on L hand healing with sutures in place, no abnormal drainage or erythema observed at affected site. Unable to determine whether suture repair was performed in [facility] ED or at a different hospital. Plan: Hx schizophrenia/depression/anxiety/borderline personality disorder/suicidal behavior -Further recs regarding titration of psych meds as per psych treatment team -Pt not admitting to SI/HI currently L hand wound -Sutured, dry, intact, covered w/ bandage, no abnormal erythema or drainage observed from site -Bacitracin ointment applied topically to site bid -Administer Tetanus booster -R/o rabies as etiology due to hx of dog bite -Give Rabies Ig x1; then Rabies Vaccine IM on days 0, 3, 7, and 14 -Levaquin 500 mg daily for anbx prophylaxis, total 5 days of therapy -General Surgery consulted, recs appreciated If pt does not have PCP, can follow in [facility] with Dr. Calderon after discharge from psych floor. Thank you for allowing us to participate in the care of your patient. Please call with any questions or concerns. Pt seen, examined with, and plan d/w Dr. Treviño, attending. <Raul Treviño - Last Filed: 12/12/17 13:22> Meds - Medications Medications: Current Medications Acetaminophen (Tylenol 325mg Tab) 650 mg PO Q6H PRN PRN Reason: Pain, moderate (4-7) Bacitracin (Bacitracin) 1 gm TOP BID [facility] Last Admin: 12/12/17 10:44 Dose: 1 applic Diphenhydramine HCl (Benadryl) 50 mg IM Q6H PRN PRN Reason: agiation Folic Acid (Folic Acid) 1 mg PO DAILY [facility] Last Admin: 12/12/17 10:27 Dose: 1 mg Gabapentin (Neurontin) 300 mg PO TID [facility] PRN Reason: Protocol Last Admin: 12/12/17 10:28 Dose: 300 mg Haloperidol (Haldol) 5 mg PO Q6H PRN; Protocol PRN Reason: agitation/psychosis Last Admin: 12/12/17 10:47 Dose: 5 mg Haloperidol Lactate (Haldol) 5 mg IM Q6H PRN; Protocol PRN Reason: agitation/psychosis Levofloxacin (Levaquin) 500 mg PO DAILY [facility] PRN Reason: Protocol Stop: 12/14/17 08:01 Last Admin: 12/12/17 10:28 Dose: 500 mg Lorazepam (Ativan) 2 mg IM Q6H PRN PRN Reason: Agitation Lorazepam (Ativan) 2 mg PO Q6 PRN; Protocol PRN Reason: alcohol withdrawals Last Admin: 12/12/17 10:47 Dose: 2 mg Lorazepam (Ativan) 0.5 mg PO BID [facility] PRN Reason: Protocol Nicotine (Nicoderm Cq) 1 patch TD DAILY [facility] Last Admin: 12/12/17 10:27 Dose: 1 patch Olanzapine (Zyprexa Zydis) 5 mg PO AMHS [facility] PRN Reason: Protocol Last Admin: 12/12/17 10:28 Dose: 5 mg Rabies Vaccine Human Diploid Cell (Rabavert Vaccine Inj) 2.5 units IM .ONCE ONE Stop: 12/14/17 15:06 Rabies Vaccine Human Diploid Cell (Rabavert Vaccine Inj) 2.5 units IM .ONCE ONE Stop: 12/18/17 15:06 Rabies Vaccine Human Diploid Cell (Rabavert Vaccine Inj) 2.5 units IM .ONCE ONE Stop: 12/25/17 15:06 Thiamine HCl (Vitamin B1 Tab) 100 mg PO DAILY [facility] Last Admin: 12/12/17 10:27 Dose: 100 mg Trazodone HCl (Desyrel) 50 mg PO HS [facility] Last Admin: 12/11/17 22:32 Dose: Not Given Results - Vital Signs Recent Vital Signs: Last Vital Signs Temp 98.0 F 12/12/17 08:05 Pulse 66 12/12/17 08:05 Resp 17 12/12/17 08:05 BP 135/85 12/12/17 08:05 Pulse Ox 98 12/11/17 07:51 - Labs Result Diagrams: 12/11/17 04:28 12/11/17 04:28 Labs: Laboratory Results - last 24 hr 12/12/17 12/12/17 07:30 07:30 Fasting Glucose 87 Triglycerides 78 Cholesterol 167 LDL Cholesterol Direct 88 HDL Cholesterol 50 Free T4 0.96 TSH 3rd Generation 0.22 L Attending/Attestation - Attestation I have personally seen and examined this patient.: Yes I have fully participated in the care of the patient.: Yes I have reviewed all pertinent clinical information: Yes Notes (Text): 12/12/17 13:17 Medical record note made by the resident after discussion with my direction and input after the patient was personally seen and examined by me. I have reviewed the chart and agree that the record accurately reflects by personal performance of the history, physical exam, data review, and medical decision-making, in the course for the patient. I have also personally directed the plan of care. 47 y o female PMHx depression, anxiety, borderline personality disorder, schizophrenia, and suicidal behavior, was admitted to Psychiatry for hallucinations. Hospitalist service was consulted was due to L hand pain, pt stated that she was bitten by a dog prior to coming to the ED, stating it was several days ago. Cut observed on L hand healing with sutures in place, no abnormal drainage or erythema observed at affected site. Patient claims that the attack was unprovoked, not sure about tetanus status, A/P -Bacitracin ointment applied topically to site bid -Administer Tetanus booster -Give Rabies Ig x1; then Rabies Vaccine IM on days 0, 3, 7, and 14 -Levaquin 500 mg daily for anbx prophylaxis, total 5 days of therapy - we will also consult General Surgery
[2017-12-11] MEDS ORDERED: TDAP Vaccine 0.5 mL Syr IM ONE (13:35)
--- NOTE | 2017-12-11 14:01 | CARD ---
APPROVED REPORT Date of service: 12/11/2017 EKG Measurement Heart [id number] <Conclusion> Poor data quality, interpretation may be adversely affected Normal sinus rhythm Normal ECG
[2017-12-11] MEDS ORDERED: Rabies Immune Globulin 150 INTLU/ML VIAL IM ONE (15:00)
--- NOTE | 2017-12-11 16:30 | CP.PCM.CON ---
History of Present Illness - History of Present Illness History of Present Illness: Ken Leach DO, PGY-1 Surgery Consult Note for Dr. Mulligan Below information taken from patient EMR. Patient was non-verbal and non- cooperative, staying in a position during encounter. 47 y o female with past psych history of depression, anxiety, borderline personality disorder, schizophrenia, and suicidal behavior, presented to the ED for evaluation of hallucinations. On triage, she admitted to using crack, was suicidal stating that no one liked her, but did not have a plan. Reason for surgical consult was for L hand laceration. In ED, she stated that she was bitten by a dog prior to coming to the ED. At the time she stated it was due to an unprovoked dog bite that occurred six days ago. ROS not attainable as patient is non-verbal and non-cooperative. PMHx: psych history as above, no known PMH PSH: unknown, laceration was repaired at unknown facility Allergies: PCN Fam hx: unknown Social hx: Patient admitted to cocaine use on arrival to ED; history obtained from EMR reports smoking > 10 cigarettes/day denied EtOH abuse No PMD Review of Systems - Review of Systems Systems not reviewed;Unavailable: Uncooperative, Psychotic Past Patient History - Infectious Disease Hx of Infectious Diseases: None - Tetanus Immunizations Tetanus Immunization: Unknown - Past Social History Smoking Status: Heavy Smoker > 10 Cigarettes Daily - CARDIAC Hx Cardiac Disorders: No Hx Hypertension: No - PULMONARY Hx Tuberculosis: No - NEUROLOGICAL HX Cerebrovascular Accident: No Hx Seizures: No - HEENT Hx HEENT Problems: No - RENAL Hx Chronic Kidney Disease: No - ENDOCRINE/METABOLIC Hx Endocrine Disorders: No - HEMATOLOGICAL/ONCOLOGICAL Hx Cancer: No Hx Human Immunodeficiency Virus (HIV): No - INTEGUMENTARY Hx Dermatological Problems: No - MUSCULOSKELETAL/RHEUMATOLOGICAL Hx Musculoskeletal Disorders: No Hx Falls: No - GASTROINTESTINAL Hx Gastrointestinal Disorders: No - GENITOURINARY/GYNECOLOGICAL Hx Sexually Transmitted Disorders: No - PSYCHIATRIC Hx Psychophysiologic Disorder: Yes Hx Anxiety: Yes Hx Bipolar Disorder: Yes Hx Depression: Yes Hx Substance Use: Yes - SURGICAL HISTORY Other/Comment: Left index surgery - ANESTHESIA Hx Anesthesia: No Meds Allergies/Adverse Reactions: Allergies Allergy/AdvReac Type Severity Reaction Status Date / Time Penicillins Allergy RASH Verified 12/11/17 04:05 - Medications Medications: Current Medications Acetaminophen (Tylenol 325mg Tab) 650 mg PO Q6H PRN PRN Reason: Pain, moderate (4-7) Bacitracin (Bacitracin) 1 gm TOP BID [facility] Folic Acid (Folic Acid) 1 mg PO DAILY [facility] Last Admin: 12/11/17 11:39 Dose: Not Given Gabapentin (Neurontin) 300 mg PO TID [facility] PRN Reason: Protocol Last Admin: 12/11/17 14:10 Dose: 300 mg Haloperidol (Haldol) 5 mg PO Q6H PRN; Protocol PRN Reason: agitation/psychosis Levofloxacin (Levaquin) 500 mg PO DAILY [facility] PRN Reason: Protocol Stop: 12/14/17 08:01 Lorazepam (Ativan) 2 mg IM Q6H PRN PRN Reason: Agitation Lorazepam (Ativan) 2 mg PO Q6 PRN; Protocol PRN Reason: alcohol withdrawals Last Admin: 12/11/17 14:25 Dose: 2 mg Olanzapine (Zyprexa Zydis) 5 mg PO AMHS [facility] PRN Reason: Protocol Last Admin: 12/11/17 11:39 Dose: Not Given Rabies Vaccine Human Diploid Cell (Imovax Rabies) 2.5 units IM .ONCE ONE Stop: 12/14/17 15:06 Rabies Vaccine Human Diploid Cell (Imovax Rabies) 2.5 units IM .ONCE ONE Stop: 12/18/17 15:06 Rabies Vaccine Human Diploid Cell (Imovax Rabies) 2.5 units IM .ONCE ONE Stop: 12/25/17 15:07 Thiamine HCl (Vitamin B1 Tab) 100 mg PO DAILY [facility] Last Admin: 12/11/17 11:39 Dose: Not Given Trazodone HCl (Desyrel) 50 mg PO [facility] Physical Exam - Constitutional Appears: Other (non-verbal, non-cooperative) - Head Exam Head Exam: ATRAUMATIC - ENT Exam ENT Exam: Mucous Membranes Dry - Respiratory Exam Respiratory Exam: absent: Accessory Muscle Use, Respiratory Distress - Extremities Exam Extremities exam: Negative for: joint swelling, pedal edema Additional comments: approximate 3 cm healing laceration on left palm. 3 stitches noted. Laceration is clean, dry, and intact - Psychiatric Exam Psychiatric exam: Agitated, Flat Affect - Skin Skin Exam: Dry, Intact, Warm Results - Vital Signs Recent Vital Signs: Last Vital Signs Temp 97.7 F 12/11/17 04:06 Pulse 81 12/11/17 07:51 Resp 18 12/11/17 07:51 BP 115/78 12/11/17 07:51 Pulse Ox 98 12/11/17 07:51 - Labs Result Diagrams: 12/11/17 04:28 12/11/17 04:28 Assessment & Plan - Assessment and Plan (Free Text) Assessment: 47 yo F with healing left hand laceration. Plan: -No plan for surgical intervention -Laceration has been sutured previously -Sutures can be removed in six days -May re-page surgery if assistance is needed ([phone]) -Will sign off for now Case and plan discussed with Dr. Isaak Leach, DO IM Resident PGY-1
[2017-12-11] MEDS ORDERED: DiphenhydrAMINE 50 mg/ml Inj IM PRN (17:17)
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
--- NOTE | 2017-12-11 17:51 | CP.PCM.PN ---
<Jv Coronel - Last Filed: 12/11/17 17:44> Subjective - Date & Time of Evaluation Date of Evaluation: 12/11/17 Time of Evaluation: 17:40 - Subjective Subjective: Jv Coronel DO PGY-1, Senior Trainer (on behalf of hospitalist team ) Paged by RN for administering rabies vaccination and Immunoglobulin. Pt seen and examined with attending physician and senior resident. Pt resting comfortably in bed, provided verbal consent for receiving injections. Approximately 20% of rabies immunoglobulin injected proximal to laceration on L hand. Remaining 80% injected by RN into L gluteal muscle. Rabies vaccination administered by RN into R gluteal muscle. All areas of injection were sterilized prior to administration. Sterile technique was utilized for administration of medication. No acute complications s/p injections. Nursing informed to monitor sites of injection and inform staff of any new findings. Pt seen, case discussed with, and plan approved by attending physician, Dr. Treviño. Objective - Vital Signs/Intake and Output Vital Signs (last 24 hours): Temp Pulse Resp BP Pulse Ox 97.7 F 81 18 115/78 98 12/11/17 04:06 12/11/17 07:51 12/11/17 07:51 12/11/17 07:51 12/11/17 07:51 - Medications Medications: Current Medications Acetaminophen (Tylenol 325mg Tab) 650 mg PO Q6H PRN PRN Reason: Pain, moderate (4-7) Bacitracin (Bacitracin) 1 gm TOP BID [facility] Diphenhydramine HCl (Benadryl) 50 mg IM Q6H PRN PRN Reason: agiation Folic Acid (Folic Acid) 1 mg PO DAILY [facility] Last Admin: 12/11/17 11:39 Dose: Not Given Gabapentin (Neurontin) 300 mg PO TID NINA PRN Reason: Protocol Last Admin: 12/11/17 14:10 Dose: 300 mg Haloperidol (Haldol) 5 mg PO Q6H PRN; Protocol PRN Reason: agitation/psychosis Haloperidol Lactate (Haldol) 5 mg IM Q6H PRN; Protocol PRN Reason: agitation/psychosis Levofloxacin (Levaquin) 500 mg PO DAILY NINA PRN Reason: Protocol Stop: 12/14/17 08:01 Lorazepam (Ativan) 2 mg IM Q6H PRN PRN Reason: Agitation Lorazepam (Ativan) 2 mg PO Q6 PRN; Protocol PRN Reason: alcohol withdrawals Last Admin: 12/11/17 14:25 Dose: 2 mg Nicotine (Nicoderm Cq) 1 patch TD DAILY [facility] Olanzapine (Zyprexa Zydis) 5 mg PO AMHS NINA PRN Reason: Protocol Last Admin: 12/11/17 11:39 Dose: Not Given Rabies Vaccine Human Diploid Cell (Rabavert Vaccine Inj) 2.5 units IM .ONCE ONE Stop: 12/14/17 15:06 Rabies Vaccine Human Diploid Cell (Rabavert Vaccine Inj) 2.5 units IM .ONCE ONE Stop: 12/18/17 15:06 Rabies Vaccine Human Diploid Cell (Rabavert Vaccine Inj) 2.5 units IM .ONCE ONE Stop: 12/25/17 15:06 Thiamine HCl (Vitamin B1 Tab) 100 mg PO DAILY [facility] Last Admin: 12/11/17 11:39 Dose: Not Given Trazodone HCl (Desyrel) 50 mg PO HS [facility] <Raul Treviño - Last Filed: 12/12/17 13:23> Objective - Vital Signs/Intake and Output Vital Signs (last 24 hours): Temp Pulse Resp BP Pulse Ox 98.0 F 66 17 135/85 98 12/12/17 08:05 12/12/17 08:05 12/12/17 08:05 12/12/17 08:05 12/11/17 07:51 - Medications Medications: Current Medications Acetaminophen (Tylenol 325mg Tab) 650 mg PO Q6H PRN PRN Reason: Pain, moderate (4-7) Bacitracin (Bacitracin) 1 gm TOP BID [facility] Last Admin: 12/12/17 10:44 Dose: 1 applic Diphenhydramine HCl (Benadryl) 50 mg IM Q6H PRN PRN Reason: agiation Folic Acid (Folic Acid) 1 mg PO DAILY [facility] Last Admin: 12/12/17 10:27 Dose: 1 mg Gabapentin (Neurontin) 300 mg PO TID NINA PRN Reason: Protocol Last Admin: 12/12/17 10:28 Dose: 300 mg Haloperidol (Haldol) 5 mg PO Q6H PRN; Protocol PRN Reason: agitation/psychosis Last Admin: 12/12/17 10:47 Dose: 5 mg Haloperidol Lactate (Haldol) 5 mg IM Q6H PRN; Protocol PRN Reason: agitation/psychosis Levofloxacin (Levaquin) 500 mg PO DAILY NINA PRN Reason: Protocol Stop: 12/14/17 08:01 Last Admin: 12/12/17 10:28 Dose: 500 mg Lorazepam (Ativan) 2 mg IM Q6H PRN PRN Reason: Agitation Lorazepam (Ativan) 2 mg PO Q6 PRN; Protocol PRN Reason: alcohol withdrawals Last Admin: 12/12/17 10:47 Dose: 2 mg Lorazepam (Ativan) 0.5 mg PO BID NINA PRN Reason: Protocol Nicotine (Nicoderm Cq) 1 patch TD DAILY NINA Last Admin: 12/12/17 10:27 Dose: 1 patch Olanzapine (Zyprexa Zydis) 5 mg PO [facility] NINA PRN Reason: Protocol Last Admin: 12/12/17 10:28 Dose: 5 mg Rabies Vaccine Human Diploid Cell (Rabavert Vaccine Inj) 2.5 units IM .ONCE ONE Stop: 12/14/17 15:06 Rabies Vaccine Human Diploid Cell (Rabavert Vaccine Inj) 2.5 units IM .ONCE ONE Stop: 12/18/17 15:06 Rabies Vaccine Human Diploid Cell (Rabavert Vaccine Inj) 2.5 units IM .ONCE ONE Stop: 12/25/17 15:06 Thiamine HCl (Vitamin B1 Tab) 100 mg PO DAILY NINA Last Admin: 12/12/17 10:27 Dose: 100 mg Trazodone HCl (Desyrel) 50 mg PO HS [facility] Last Admin: 12/11/17 22:32 Dose: Not Given Attending/Attestation - Attestation I have personally seen and examined this patient.: Yes I have fully participated in the care of the patient.: Yes I have reviewed all pertinent clinical information, including history, physical exam and plan: Yes
[2017-12-11] MEDS: Bacitracin Ointment 30 GM TUBE TOP SCH (18:14)
[2017-12-11] MEDS: levoFLOXacin 500 MG TAB PO SCH ×2 (18:14→18:30)
[2017-12-12 08:32] LABS: GLUCOSE,FASTING 87 mg/dL (65-110); HDL CHOLESTEROL 50 mg/dL (29-60)
[2017-12-12 08:42] LABS: LDL CHOLESTEROL 88 mg/dL (0-129)
[2017-12-12 08:45] LABS: FREE T4 0.96 ng/dL (0.78-2.19)
--- NOTE | 2017-12-12 10:06 | PCM.PYCHPN ---
Psychiatric Progress Note - Psychiatric Progress Note Patient seen today, length of contact: 30 min Problems Identified/Issues Discussed: I reviewed assessment and recent notes. I met with patient at bedside. Patient has been labile and unpredictable on the unit. This morning she appears alvarez, brittle and anxious. She is able to provide the correct location however claims she doesn't know the current month or year. Patient reports that she is "depressed, anxious, I feel like I am going crazy". Patient reports having auditory hallucinations however can only vaguely describe them as voices. She describes restlessness and internal agitation. She feels her medications need to be stronger. She isn't responding to internal stimuli during my visit and denies any new discomfort or pain. Staff notes report patient remains alvarez, easily irritable and disruptive, similar to prior admissions. Insight and judgment remains poor, impulse control is tenuous. Diagnostic Results: rule out schizoaffective disorder bipolar type Polysubstance abuse and dependence Drug-induced psychosis Mental Status Examination - Cognitive Function Orientation: Person, Place, Situation - Mood Mood: Depressed, Anxious - Affect Affect: Flat - Formal Thought Process Formal Thought Process: Hallucinations, Delusions, Paranoia, Loosening of associations - Homicidal Ideation Homicidal Ideation: No Goal/Treatment Plan - Goal/Treatment Plan Progress Toward Problem(s) and Goals/Treatment Plan: * c/w current tx and plan * Added ativan 0.5 mg po bid for anxiety and mood control with plan to taper down when patient is less acute No new lab results thus far Vitals reviewed and noted below: Selected Entries 12/11/17 12/11/17 04:06 07:51 Temperature 97.7 F Pulse Rate 75 81 Respiratory 18 18 Rate Blood Pressure 108/73 115/78
[2017-12-12] MEDS: OLANZapine 5 mg Disintegrating Tab PO SCH ×2 (10:28→22:51)
[2017-12-12] MEDS: levoFLOXacin 500 MG TAB PO SCH (10:28)
[2017-12-12] MEDS: Bacitracin Ointment 30 GM TUBE TOP SCH ×2 (10:44→17:16)
[2017-12-13 07:35] VITALS: RESP 20
[2017-12-13] MEDS: levoFLOXacin 500 MG TAB PO SCH (09:32)
[2017-12-13] MEDS: OLANZapine 5 mg Disintegrating Tab PO SCH (09:32)
[2017-12-13] MEDS: Bacitracin Ointment 30 GM TUBE TOP SCH ×2 (09:33→17:44)
--- NOTE | 2017-12-13 11:09 | PCM.PYCHPN ---
Psychiatric Progress Note - Psychiatric Progress Note Patient seen today, length of contact: 30 min Problems Identified/Issues Discussed: I reviewed recent notes and met with patient at bedside again. She continues to emotional, impulsive and scattered on the unit. She reports that she is depressed, anxious and "overwhelmed" with her internal agitation. She continues to endorse "aggressive" auditory hallucinations and paranoia "about the patients , about everyone, I can't take it". Staff have noted that patient is irritable, disorganized (was wandering into other patient's rooms) and oppositional. She indulges in hysterical misery and easily self-escalates this way. Again, patient reports that her medications need to be stronger--though was noted to be sleeping on the unit most of the day on Thursday. She isn't responding to internal stimuli during my visit and denies any new discomfort, side effectos or pain. She actually appears a little better groomed this morning. Insight and judgment remains poor, impulse control is tenuous. Diagnostic Results: rule out schizoaffective disorder bipolar type Polysubstance abuse and dependence Drug-induced psychosis Medication Change: Yes (zyprexa increased) Medical Record Reviewed: Yes Mental Status Examination - Cognitive Function Orientation: Person, Place, Situation Attention: Poor Concentration: Poor Association: Loose Fund of Knowledge: Poor - Mood Mood: Depressed, Anxious - Affect Affect: Flat - Formal Thought Process Formal Thought Process: Hallucinations, Delusions, Paranoia, Loosening of associations - Suicidal Ideation Suicidal Ideation: No - Homicidal Ideation Homicidal Ideation: No Goal/Treatment Plan - Goal/Treatment Plan Progress Toward Problem(s) and Goals/Treatment Plan: * c/w current tx and plan * Added ativan 0.5 mg po bid for anxiety and mood control on 12/12/17 with plan to taper down when patient is less acute * Increased zyprexa to 5 mg AM and 10 mg HS on 12/13/17 Vitals reviewed and noted below: Selected Entries 12/12/17 08:05 Temperature 98.0 F Pulse Rate 66 Respiratory 17 Rate Blood Pressure 135/85 * New weekend labs noted below: 12/12/17 12/12/17 07:30 07:30 Fasting Glucose 87 Triglycerides 78 Cholesterol 167 LDL Cholesterol Direct 88 HDL Cholesterol 50 Free T4 0.96 TSH 3rd Generation 0.22 L
[2017-12-13] MEDS: OLANZapine 10 mg Disintegrating Tab PO SCH (22:11)
[2017-12-14] MEDS: levoFLOXacin 500 MG TAB PO SCH (09:51)
[2017-12-14] MEDS: OLANZapine 5 mg Disintegrating Tab PO SCH (09:52)
[2017-12-14] MEDS: Bacitracin Ointment 30 GM TUBE TOP SCH ×2 (11:32→18:17)
--- NOTE | 2017-12-14 16:44 | PCM.PYCHPN ---
Psychiatric Progress Note - Psychiatric Progress Note Patient seen today, length of contact: 30 min Patient Chief Complaint: "I hate myself, I hate everyone, I don't want to hurt people, I am afraid, I feel people are not nice, I feel that people are talking about me, nobody loves me, I am alone in this world" Problems Identified/Issues Discussed: Suicide/ homicide prevention, past psychiatric h/o, current psychiatric symptoms , medical problems, risk/benefits and alternatives of medications, medications compliance, coping strategies, substance abuse h/o, relapse prevention, importance of follow up with psychiatrist and therapist, discharge plan. Medical Problems: see HPI pt was seen by medical team got rabies vaccination Diagnostic Results: 12/11/17 04:28 12/11/17 04:28 Lab Results 12/12/17 08:00: RPR Nonreactive 12/12/17 07:30: Free T4 0.96, TSH 3rd Generation 0.22 L 12/12/17 07:30: Fasting Glucose 87, Triglycerides 78, Cholesterol 167, LDL Cholesterol Direct 88, HDL Cholesterol 50 12/11/17 06:50: Urine Opiates Screen Positive H, Urine Methadone Screen Negative , Ur Barbiturates Screen Negative, Ur Phencyclidine Scrn Negative, Ur Amphetamines Screen Negative, U Benzodiazepines Scrn Negative, U Oth Cocaine Metabols Positive H, U Cannabinoids Screen Positive H 12/11/17 06:50: Urine Color Yellow, Urine Appearance Clear, Urine pH 6.5, Ur Specific [place] 1.020, Urine Protein Trace H, Urine Glucose (UA) Negative, Urine Ketones Negative, Urine Blood Trace-intact H, Urine Nitrate Negative, Urine Bilirubin Negative, Urine Urobilinogen 0.2, Ur Leukocyte Esterase Negative , Urine RBC 2 - 5, Urine WBC 1 - 3, Ur Epithelial Cells 4 - 5, Amorphous Sediment Few, Urine Bacteria Mod, Hyaline Casts 0 - 2, Urine HCG, Qual Negative 12/11/17 04:28: Alcohol, Quantitative < 10 12/11/17 04:28: Salicylates < 1 L, Acetaminophen < 10.0 L 12/11/17 04:28: Sodium 139, Potassium 3.3 L, Chloride 106, Carbon Dioxide 28, Anion Gap 9 L, BUN 18, Creatinine 0.7, Est GFR ( Amer) > 60, Est GFR (Non -Af Amer) > 60, Random Glucose 102, Calcium 8.8, Total Bilirubin 0.4, AST 39 H D , ALT 26, Alkaline Phosphatase 73, Total Protein 6.9, Albumin 3.7, Globulin 3.2 , Albumin/Globulin Ratio 1.2 12/11/17 04:28: WBC 9.1, RBC 3.27 L, Hgb 10.3 L, Hct 31.2 L, MCV 95.4, MCH 31.5 , MCHC 33.0, RDW 12.2, Plt Count 373, MPV 8.7, Gran % 80.3 H, Lymph % (Auto) 14.3 L, [place] % (Auto) 4.8, Eos % (Auto) 0.3 L, Baso % (Auto) 0.3, Gran # 7.30 H , Lymph # (Auto) 1.3, [place] # (Auto) 0.4, Eos # (Auto) 0.0, Baso # (Auto) 0.03 Vital Signs Temp Pulse Resp BP Pulse Ox 12/14/17 07:23 97.9 F 66 20 109/66 12/13/17 15:00 78 105/68 12/13/17 11:55 97.4 F L 12/13/17 07:34 97.9 F 70 20 107/60 12/12/17 08:05 98.0 F 66 17 135/85 12/11/17 07:51 81 18 115/78 98 12/11/17 04:10 18 12/11/17 04:06 97.7 F 75 18 108/73 98 DSM 5 Symptoms Update: shortly pt is 47yo female with history of Schizoaffective Disorder, Anxiety, Borderline Personality Disorder, h/o polysubstance abuse and dependence (crack, cocaine, MJA), multiple psychiatric admissions-most recently was in this facility March 2018, noncompliance with medications and follow up apps, pt came to the ED for evaluation of depressive symptoms, possible suicidal ideation, patient also appears to be disorganized, psychotic, actively hallucinating, patient also appeared to be under the influence of drugs, urine drug screen was positive for opioids/cannabis/cocaine. Most likely patient was noncompliant with the medications, follow-up appointments, patient requires higher level of care, observation, stabilization, medication resumption and titration. there are no acute issues over the weekend, patient did not have any agitation or aggression, depressed, withdrawn, crying nonstop. Patient was seen today at the treatment team meeting, patient presented with very poor personal hygiene, appears to be very malnourished, patient was crying nonstop saying that she hates herself, hates everyone, patient said that she feels paranoid that people are talking about her and nobody loves her. She continues to emotional, impulsive and scattered on the unit. She reports that she is depressed, anxious and "overwhelmed" with her internal agitation. She continues to endorse "aggressive" auditory hallucinations and paranoia "about the patients, about everyone, I can't take it". patient also has some positive changes, was able to hold interview. Insight and judgment remains poor, impulse control is tenuous. so far patient tolerates medications well, no side effects observed or reported , aims 0, no EPS. Diagnostic Results: rule out schizoaffective disorder bipolar type Polysubstance abuse and dependence Drug-induced psychosis Medication Change: Yes (zyprexa increased) Medical Record Reviewed: Yes Consults ordered or reviewed: patient was seen by medical team as well as surgical team, please see notes for more detailed information, input appreciated Mental Status Examination - Cognitive Function Orientation: Person, Place, Situation Attention: Poor Concentration: Poor Association: Loose Fund of Knowledge: Poor - Mood Mood: Depressed, Anxious - Affect Affect: Flat - Formal Thought Process Formal Thought Process: Hallucinations, Delusions, Paranoia, Loosening of associations - Suicidal Ideation Suicidal Ideation: No - Homicidal Ideation Homicidal Ideation: No Goal/Treatment Plan - Goal/Treatment Plan Need for Continued Stay: Remain at risks for inpatient hospitalization, Severe depression anxiety, Discharge may exacerbated symptoms, Severe functional impairment Progress Toward Problem(s) and Goals/Treatment Plan: Milieu/structure/supportive therapy Medical consult appreciated, see medical team note for more detailed info surgical consult appreciated please see notes for more detailed information when necessary medications Haldol Benadryl and Ativan Multivitamins thiamine and folic acid Zyprexa 10 mg at the morning time at the nighttime Neurontin 600 mg 3 times a day for cravings and multiple stabilization trazodone 50 mg for insomnia as well as depression SW consultation for discharge plan and social issues patient might benefit from inpatient rehabilitation Family involvement Follow up on labs Will monitor closely Pt was educated about risk/benefits and alternatives of medications, coping strategies (safety plan, suicide prevention), relapse prevention, importance of follow up with psychiatrist and therapist, stay away from drugs/alcohol/smoking Estimated Date of D/C: 12/18/17
[2017-12-14] MEDS: OLANZapine 10 mg Disintegrating Tab PO SCH (21:46)
[2017-12-15] MEDS: Bacitracin Ointment 30 GM TUBE TOP SCH ×2 (09:06→17:04)
[2017-12-15] MEDS: OLANZapine 5 mg Disintegrating Tab PO SCH (09:07)
--- NOTE | 2017-12-15 15:22 | PCM.PYCHPN ---
Psychiatric Progress Note - Psychiatric Progress Note Patient seen today, length of contact: 30 min Patient Chief Complaint: "I hate myself, I hate everyone, I don't want to hurt people, I am afraid, I feel people are not nice, I feel that people are talking about me, nobody loves me, I am alone in this world" Problems Identified/Issues Discussed: Suicide/ homicide prevention, past psychiatric h/o, current psychiatric symptoms , medical problems, risk/benefits and alternatives of medications, medications compliance, coping strategies, substance abuse h/o, relapse prevention, importance of follow up with psychiatrist and therapist, discharge plan. Medical Problems: see HPI pt was seen by medical team got rabies vaccination Diagnostic Results: 12/11/17 04:28 12/11/17 04:28 Lab Results 12/12/17 08:00: RPR Nonreactive 12/12/17 07:30: Free T4 0.96, TSH 3rd Generation 0.22 L 12/12/17 07:30: Fasting Glucose 87, Triglycerides 78, Cholesterol 167, LDL Cholesterol Direct 88, HDL Cholesterol 50 12/11/17 06:50: Urine Opiates Screen Positive H, Urine Methadone Screen Negative , Ur Barbiturates Screen Negative, Ur Phencyclidine Scrn Negative, Ur Amphetamines Screen Negative, U Benzodiazepines Scrn Negative, U Oth Cocaine Metabols Positive H, U Cannabinoids Screen Positive H 12/11/17 06:50: Urine Color Yellow, Urine Appearance Clear, Urine pH 6.5, Ur Specific [place] 1.020, Urine Protein Trace H, Urine Glucose (UA) Negative, Urine Ketones Negative, Urine Blood Trace-intact H, Urine Nitrate Negative, Urine Bilirubin Negative, Urine Urobilinogen 0.2, Ur Leukocyte Esterase Negative , Urine RBC 2 - 5, Urine WBC 1 - 3, Ur Epithelial Cells 4 - 5, Amorphous Sediment Few, Urine Bacteria Mod, Hyaline Casts 0 - 2, Urine HCG, Qual Negative 12/11/17 04:28: Alcohol, Quantitative < 10 12/11/17 04:28: Salicylates < 1 L, Acetaminophen < 10.0 L 12/11/17 04:28: Sodium 139, Potassium 3.3 L, Chloride 106, Carbon Dioxide 28, Anion Gap 9 L, BUN 18, Creatinine 0.7, Est GFR ( Amer) > 60, Est GFR (Non -Af Amer) > 60, Random Glucose 102, Calcium 8.8, Total Bilirubin 0.4, AST 39 H D , ALT 26, Alkaline Phosphatase 73, Total Protein 6.9, Albumin 3.7, Globulin 3.2 , Albumin/Globulin Ratio 1.2 12/11/17 04:28: WBC 9.1, RBC 3.27 L, Hgb 10.3 L, Hct 31.2 L, MCV 95.4, MCH 31.5 , MCHC 33.0, RDW 12.2, Plt Count 373, MPV 8.7, Gran % 80.3 H, Lymph % (Auto) 14.3 L, [place] % (Auto) 4.8, Eos % (Auto) 0.3 L, Baso % (Auto) 0.3, Gran # 7.30 H , Lymph # (Auto) 1.3, [place] # (Auto) 0.4, Eos # (Auto) 0.0, Baso # (Auto) 0.03 Vital Signs Temp Pulse Resp BP Pulse Ox 12/14/17 07:23 97.9 F 66 20 109/66 12/13/17 15:00 78 105/68 12/13/17 11:55 97.4 F L 12/13/17 07:34 97.9 F 70 20 107/60 12/12/17 08:05 98.0 F 66 17 135/85 12/11/17 07:51 81 18 115/78 98 12/11/17 04:10 18 12/11/17 04:06 97.7 F 75 18 108/73 98 DSM 5 Symptoms Update: shortly pt is 47yo female with history of Schizoaffective Disorder, Anxiety, Borderline Personality Disorder, h/o polysubstance abuse and dependence (crack, cocaine, MJA), multiple psychiatric admissions-most recently was in this facility March 2018, noncompliance with medications and follow up apps, pt came to the ED for evaluation of depressive symptoms, possible suicidal ideation, patient also appears to be disorganized, psychotic, actively hallucinating, patient also appeared to be under the influence of drugs, urine drug screen was positive for opioids/cannabis/cocaine. Most likely patient was noncompliant with the medications, follow-up appointments, patient requires higher level of care, observation, stabilization, medication resumption and titration. there are no acute issues over night, pt was less agitated, less tearful today. ppatient reported that she feels very depressed, hopeless, helpless, willing to start antidepressant. Patient still paranoid, reported that "nobody loves me, everybody hates me". She continues to emotional, impulsive and scattered on the unit. Insight and judgment remains poor, impulse control is tenuous. so far patient tolerates medications well, no side effects observed or reported , aims 0, no EPS. Diagnostic Results: rule out schizoaffective disorder bipolar type Polysubstance abuse and dependence Drug-induced psychosis Medication Change: Yes (Prozac started) Medical Record Reviewed: Yes Consults ordered or reviewed: patient was seen by medical team as well as surgical team, please see notes for more detailed information, input appreciated Mental Status Examination - Cognitive Function Orientation: Person, Place, Situation Attention: Poor Concentration: Poor Association: Loose Fund of Knowledge: Poor - Mood Mood: Depressed, Anxious - Affect Affect: Flat - Formal Thought Process Formal Thought Process: Hallucinations, Delusions, Paranoia, Loosening of associations - Suicidal Ideation Suicidal Ideation: No - Homicidal Ideation Homicidal Ideation: No Goal/Treatment Plan - Goal/Treatment Plan Need for Continued Stay: Remain at risks for inpatient hospitalization, Severe depression anxiety, Discharge may exacerbated symptoms, Severe functional impairment Progress Toward Problem(s) and Goals/Treatment Plan: Milieu/structure/supportive therapy Medical consult appreciated, see medical team note for more detailed info surgical consult appreciated please see notes for more detailed information when necessary medications Haldol Benadryl and Ativan Multivitamins thiamine and folic acid Zyprexa 10 mg at the morning time at the nighttime Neurontin 600 mg 3 times a day for cravings and multiple stabilization Prozac 10 mg by mouth daily for depression and anxiety trazodone 50 mg for insomnia as well as depression SW consultation for discharge plan and social issues patient might benefit from inpatient rehabilitation Family involvement Follow up on labs Will monitor closely Pt was educated about risk/benefits and alternatives of medications, coping strategies (safety plan, suicide prevention), relapse prevention, importance of follow up with psychiatrist and therapist, stay away from drugs/alcohol/smoking Estimated Date of D/C: 12/23/17
[2017-12-15] MEDS: OLANZapine 10 mg Disintegrating Tab PO SCH (21:34)
[2017-12-16] MEDS: OLANZapine 5 mg Disintegrating Tab PO SCH ×2 (09:03→12:47)
[2017-12-16] MEDS: Bacitracin Ointment 30 GM TUBE TOP SCH ×2 (09:03→17:55)
--- NOTE | 2017-12-16 10:08 | PCM.PYCHPN ---
Psychiatric Progress Note - Psychiatric Progress Note Patient seen today, length of contact: 30 min Patient Chief Complaint: "I think I have dementia, I have Alzheimer, I do not remember things, I cannot concentrate". Problems Identified/Issues Discussed: Suicide/ homicide prevention, past psychiatric h/o, current psychiatric symptoms , medical problems, risk/benefits and alternatives of medications, medications compliance, coping strategies, substance abuse h/o, relapse prevention, importance of follow up with psychiatrist and therapist, discharge plan. Medical Problems: see HPI pt was seen by medical team got rabies vaccination Diagnostic Results: 12/11/17 04:28 12/11/17 04:28 Lab Results 12/12/17 08:00: RPR Nonreactive 12/12/17 07:30: Free T4 0.96, TSH 3rd Generation 0.22 L 12/12/17 07:30: Fasting Glucose 87, Triglycerides 78, Cholesterol 167, LDL Cholesterol Direct 88, HDL Cholesterol 50 12/11/17 06:50: Urine Opiates Screen Positive H, Urine Methadone Screen Negative , Ur Barbiturates Screen Negative, Ur Phencyclidine Scrn Negative, Ur Amphetamines Screen Negative, U Benzodiazepines Scrn Negative, U Oth Cocaine Metabols Positive H, U Cannabinoids Screen Positive H 12/11/17 06:50: Urine Color Yellow, Urine Appearance Clear, Urine pH 6.5, Ur Specific [place] 1.020, Urine Protein Trace H, Urine Glucose (UA) Negative, Urine Ketones Negative, Urine Blood Trace-intact H, Urine Nitrate Negative, Urine Bilirubin Negative, Urine Urobilinogen 0.2, Ur Leukocyte Esterase Negative , Urine RBC 2 - 5, Urine WBC 1 - 3, Ur Epithelial Cells 4 - 5, Amorphous Sediment Few, Urine Bacteria Mod, Hyaline Casts 0 - 2, Urine HCG, Qual Negative 12/11/17 04:28: Alcohol, Quantitative < 10 12/11/17 04:28: Salicylates < 1 L, Acetaminophen < 10.0 L 12/11/17 04:28: Sodium 139, Potassium 3.3 L, Chloride 106, Carbon Dioxide 28, Anion Gap 9 L, BUN 18, Creatinine 0.7, Est GFR ( Amer) > 60, Est GFR (Non -Af Amer) > 60, Random Glucose 102, Calcium 8.8, Total Bilirubin 0.4, AST 39 H D , ALT 26, Alkaline Phosphatase 73, Total Protein 6.9, Albumin 3.7, Globulin 3.2 , Albumin/Globulin Ratio 1.2 12/11/17 04:28: WBC 9.1, RBC 3.27 L, Hgb 10.3 L, Hct 31.2 L, MCV 95.4, MCH 31.5 , MCHC 33.0, RDW 12.2, Plt Count 373, MPV 8.7, Gran % 80.3 H, Lymph % (Auto) 14.3 L, [place] % (Auto) 4.8, Eos % (Auto) 0.3 L, Baso % (Auto) 0.3, Gran # 7.30 H , Lymph # (Auto) 1.3, [place] # (Auto) 0.4, Eos # (Auto) 0.0, Baso # (Auto) 0.03 Vital Signs Temp Pulse Resp BP Pulse Ox 12/14/17 07:23 97.9 F 66 20 109/66 12/13/17 15:00 78 105/68 12/13/17 11:55 97.4 F L 12/13/17 07:34 97.9 F 70 20 107/60 12/12/17 08:05 98.0 F 66 17 135/85 12/11/17 07:51 81 18 115/78 98 12/11/17 04:10 18 12/11/17 04:06 97.7 F 75 18 108/73 98 DSM 5 Symptoms Update: shortly pt is 47yo female with history of Schizoaffective Disorder, Anxiety, Borderline Personality Disorder, h/o polysubstance abuse and dependence (crack, cocaine, MJA), multiple psychiatric admissions-most recently was in this facility March 2018, noncompliance with medications and follow up apps, pt came to the ED for evaluation of depressive symptoms, possible suicidal ideation, patient also appears to be disorganized, psychotic, actively hallucinating, patient also appeared to be under the influence of drugs, urine drug screen was positive for opioids/cannabis/cocaine. Most likely patient was noncompliant with the medications, follow-up appointments, patient requires higher level of care, observation, stabilization, medication resumption and titration. there are no acute issues over night, pt was less agitated, less tearful today. pt preoccupied that she has dementia, pt also said it is the only reason why she could have memory problems, pt is PCP user and this chief writer strongly believe memory problems related to drugs, pt verbalized understanding. patient reported that she feels very depressed, hopeless, helpless. Patient still paranoid, reported that "nobody loves me, everybody hates me". She continues to emotional, impulsive and scattered on the unit. Insight and judgment remains poor, impulse control is tenuous. so far patient tolerates medications well, no side effects observed or reported , aims 0, no EPS. Diagnostic Results: rule out schizoaffective disorder bipolar type Polysubstance abuse and dependence Drug-induced psychosis Medication Change: Yes (Prozac started) Medical Record Reviewed: Yes Consults ordered or reviewed: patient was seen by medical team as well as surgical team, please see notes for more detailed information, input appreciated Mental Status Examination - Cognitive Function Orientation: Person, Place, Situation Attention: Poor Concentration: Poor Association: Loose Fund of Knowledge: Poor - Mood Mood: Depressed, Anxious - Affect Affect: Flat - Formal Thought Process Formal Thought Process: Hallucinations, Delusions, Paranoia, Loosening of associations - Suicidal Ideation Suicidal Ideation: No - Homicidal Ideation Homicidal Ideation: No Goal/Treatment Plan - Goal/Treatment Plan Need for Continued Stay: Remain at risks for inpatient hospitalization, Severe depression anxiety, Discharge may exacerbated symptoms, Severe functional impairment Progress Toward Problem(s) and Goals/Treatment Plan: Milieu/structure/supportive therapy Medical consult appreciated, see medical team note for more detailed info surgical consult appreciated please see notes for more detailed information when necessary medications Haldol Benadryl and Ativan Multivitamins thiamine and folic acid Zyprexa 10 mg at the morning time at the nighttime Neurontin 600 mg 3 times a day for cravings and multiple stabilization Prozac 20 mg by mouth daily for depression and anxiety trazodone 50 mg for insomnia as well as depression SW consultation for discharge plan and social issues patient might benefit from inpatient rehabilitation Family involvement Follow up on labs Will monitor closely Pt was educated about risk/benefits and alternatives of medications, coping strategies (safety plan, suicide prevention), relapse prevention, importance of follow up with psychiatrist and therapist, stay away from drugs/alcohol/smoking Estimated Date of D/C: 12/23/17
[2017-12-16] MEDS: OLANZapine 10 mg Disintegrating Tab PO SCH (21:18)
[2017-12-17] MEDS: OLANZapine 5 mg Disintegrating Tab PO SCH (09:16)
[2017-12-17] MEDS: Bacitracin Ointment 30 GM TUBE TOP SCH ×2 (09:17→18:21)
--- NOTE | 2017-12-17 12:07 | PN ---
DATE: 12/17/2017 SUBJECTIVE: I was walking in the [place] of the [facility] psychiatric floor and Bárbara approached me, asked me to be her physician. I discussed it with the hospital and said it was okay. She tells me she fell off the wagon and she started doing drugs again and she is having a problem. She is hoping to get better and feeling better. She was using crack cocaine. She was suicidal. She has a history of borderline personality disorder, anxiety, depression, schizophrenia, suicidal behavior. She has status post hallucinations. She is having memory issues from all these drugs. She is eating okay. She is maybe a little bit better, but sometimes she gets a little bit aggressive, but she is working on that. She is still smoking, drugs. She is eating a little bit better. PHYSICAL EXAMINATION: VITAL SIGNS: She has a 98.2 temp, 93 pulse, 102/71 blood pressure, 20 respiratory rate. HEENT: Head is atraumatic, normocephalic. HEART: Regular rate. LUNGS: Decreased breath sounds, but clear. ABDOMEN: Soft. EXTREMITIES: No edema. MEDICATIONS: She is currently on Ativan, bacitracin, Benadryl, I added Cipro for UTI, Desyrel, folic acid, Haldol, Motrin, Neurontin, Nicoderm, Prozac. She had a dog bite of the left hand and she was given a rabies shot. She has stitches. She is also vitamin B1 and Zyprexa. There was a consult for Surgery to look at the left hand, which is bandaged and a couple of sutures in place. LABORATORY DATA: She had some blood tests. She has a 9.1 white count, 10.3 hemoglobin, 31.2 hematocrit with 373 platelets on 12/11/2017. 139 sodium; potassium 3.3, potassium is replaced; BUN 18; creatinine 0.7; GFR is greater than 60; sugar is 102; calcium is 8.8; total bili is 0.4; AST is 39; ALT is 26; alk phos 73. TSH is 0.22. I want to repeat that. Urine showed moderate bacteria. I want to see if that is improved. I am going to put her on some Cipro. HIV and the RPR were nonreactive. ASSESSMENT AND PLAN: So, I will do some blood tests on her, a CBC and a chemistry. I am also going to do a urinalysis. I am putting her on Cipro to make sure that is not a part of her problem. We will see what Surgery has to say about her left hand for sutures. She had a rabies shot and we will see if she needs to have anything else done. I am thanking you for letting me to participate in her care. She has schizophrenia; bipolar; suicidal ideation; drug abuse; possible urinary tract infection; low potassium, but it was replaced and left hand dog bite. We will see her tomorrow. Nate Smiley DO
[2017-12-17 20:29] LABS: PH,URINE 7.5 (4.7-8.0); URINE BILIRUBIN NEGATIVE (NEGATIVE); URINE BLOOD NEGATIVE (NEGATIVE); URINE GLUCOSE (UA) NEGATIVE (NEGATIVE); URINE LEUKOCYTE ESTERASE NEGATIVE Leu/uL (NEGATIVE); URINE PROTEIN NEGATIVE mg/dL (<30 mg/dL); URINE UROBILINOGEN 0.2 E.U./dL (<1 E.U./dL)
[2017-12-17 20:38] LABS: URINE APPEARANCE CLEAR (CLEAR); URINE COLOR YELLOW (YELLOW)
[2017-12-18 07:42] LABS: HEMOGLOBIN 10.9 g/dL (12.0-16.0); MEAN CELL VOLUME 97.7 fl (80.0-105.0); MEAN CORPUSCULAR HEMOGLOBIN 31.9 pg (25.0-35.0); MEAN CORPUSCULAR HGB CONC 32.6 g/dl (31.0-37.0); MEAN PLATELET VOLUME 8.9 fl (7.0-11.0); RBC 3.42 10^6/uL (3.5-6.1); RED CELL DISTRIBUTION WIDTH 12.5 % (11.5-14.5); WHITE BLOOD COUNT 5.5 10^3/ul (4.5-11.0)
[2017-12-18 07:52] LABS: ALB/GLOB RATIO 1.1 (1.1-1.8); ALBUMIN 3.6 g/dL (3.0-4.8); ALT/SGPT 24 U/L (7-56); AST/SGOT 29 U/L (14-36); BLOOD UREA NITROGEN 22 mg/dL (7-21); CALCIUM 8.7 mg/dL (8.4-10.5); GFR NON-AFRICAN AMERICAN > 60
--- NOTE | 2017-12-18 08:09 | PN ---
DATE: 12/18/2017 SUBJECTIVE: I saw her in the psychiatric floor. She slept fairly well. She is having low back pain in the lumbar and the sacral area. I am going to get an x-ray of the low back. She is on Ativan, bacitracin, Benadryl, Cipro for UTI, trazodone, folic acid, Haldol, lactate, Motrin, Neurontin, Nicoderm, Prozac, Seroquel, Tylenol, and vitamins. PHYSICAL EXAMINATION: VITAL SIGNS: She has a 97.6 temperature, 82 pulse, 98/64 blood pressure, and 20 respiratory rate. HEENT: Head is atraumatic, normocephalic. Throat is moist. NECK: Supple. HEART: Regular rate. LUNGS: Decreased breath sounds but clear. ABDOMEN: Soft. EXTREMITIES: No edema. BACK: She has some mild palpable tenderness in the lumbar spine. LABORATORY DATA: She has a 5.5 white count, 10.9 hemoglobin, 33.4 hematocrit with 330 platelets. Waiting for the TSH in the chemistry to populate. She has been seen by Psychiatry. I am going to check her potassium, kidney functions, and now an x-ray. She has low back pain, low potassium, urinary tract infection, schizophrenia, bipolar, suicidal ideation, using crack cocaine and marijuana. The left hand has a drug bite that looks clean and we will see how she does. Nate Smiley DO
[2017-12-18] MEDS: Bacitracin Ointment 30 GM TUBE TOP SCH ×2 (08:41→17:32)
--- NOTE | 2017-12-18 11:06 | RAD ---
Date of service: 12/18/2017 PROCEDURE: Radiographs of the Lumbar Spine. HISTORY: lumbar sacral spine xray back pain COMPARISON: No prior. FINDINGS: BONES: Normal alignment. No listhesis. No fracture. DISC SPACES: Unremarkable. OTHER FINDINGS: There is a 5 mm stone in the region of the right kidney IMPRESSION: Unremarkable radiographs of the lumbar spine.
--- NOTE | 2017-12-18 14:18 | PCM.PYCHPN ---
Psychiatric Progress Note - Psychiatric Progress Note Patient seen today, length of contact: 30 min Patient Chief Complaint: "nobody loves me, everybody hates me, I hate myself". Problems Identified/Issues Discussed: Suicide/ homicide prevention, past psychiatric h/o, current psychiatric symptoms , medical problems, risk/benefits and alternatives of medications, medications compliance, coping strategies, substance abuse h/o, relapse prevention, importance of follow up with psychiatrist and therapist, discharge plan. Medical Problems: see HPI pt was seen by medical team got rabies vaccination Diagnostic Results: 12/11/17 04:28 12/11/17 04:28 Lab Results 12/12/17 08:00: RPR Nonreactive 12/12/17 07:30: Free T4 0.96, TSH 3rd Generation 0.22 L 12/12/17 07:30: Fasting Glucose 87, Triglycerides 78, Cholesterol 167, LDL Cholesterol Direct 88, HDL Cholesterol 50 12/11/17 06:50: Urine Opiates Screen Positive H, Urine Methadone Screen Negative , Ur Barbiturates Screen Negative, Ur Phencyclidine Scrn Negative, Ur Amphetamines Screen Negative, U Benzodiazepines Scrn Negative, U Oth Cocaine Metabols Positive H, U Cannabinoids Screen Positive H 12/11/17 06:50: Urine Color Yellow, Urine Appearance Clear, Urine pH 6.5, Ur Specific [place] 1.020, Urine Protein Trace H, Urine Glucose (UA) Negative, Urine Ketones Negative, Urine Blood Trace-intact H, Urine Nitrate Negative, Urine Bilirubin Negative, Urine Urobilinogen 0.2, Ur Leukocyte Esterase Negative , Urine RBC 2 - 5, Urine WBC 1 - 3, Ur Epithelial Cells 4 - 5, Amorphous Sediment Few, Urine Bacteria Mod, Hyaline Casts 0 - 2, Urine HCG, Qual Negative 12/11/17 04:28: Alcohol, Quantitative < 10 12/11/17 04:28: Salicylates < 1 L, Acetaminophen < 10.0 L 12/11/17 04:28: Sodium 139, Potassium 3.3 L, Chloride 106, Carbon Dioxide 28, Anion Gap 9 L, BUN 18, Creatinine 0.7, Est GFR ( Amer) > 60, Est GFR (Non -Af Amer) > 60, Random Glucose 102, Calcium 8.8, Total Bilirubin 0.4, AST 39 H D , ALT 26, Alkaline Phosphatase 73, Total Protein 6.9, Albumin 3.7, Globulin 3.2 , Albumin/Globulin Ratio 1.2 12/11/17 04:28: WBC 9.1, RBC 3.27 L, Hgb 10.3 L, Hct 31.2 L, MCV 95.4, MCH 31.5 , MCHC 33.0, RDW 12.2, Plt Count 373, MPV 8.7, Gran % 80.3 H, Lymph % (Auto) 14.3 L, [place] % (Auto) 4.8, Eos % (Auto) 0.3 L, Baso % (Auto) 0.3, Gran # 7.30 H , Lymph # (Auto) 1.3, [place] # (Auto) 0.4, Eos # (Auto) 0.0, Baso # (Auto) 0.03 Vital Signs Temp Pulse Resp BP Pulse Ox 12/14/17 07:23 97.9 F 66 20 109/66 12/13/17 15:00 78 105/68 12/13/17 11:55 97.4 F L 12/13/17 07:34 97.9 F 70 20 107/60 12/12/17 08:05 98.0 F 66 17 135/85 12/11/17 07:51 81 18 115/78 98 12/11/17 04:10 18 12/11/17 04:06 97.7 F 75 18 108/73 98 DSM 5 Symptoms Update: shortly pt is 47yo female with history of Schizoaffective Disorder, Anxiety, Borderline Personality Disorder, h/o polysubstance abuse and dependence (crack, cocaine, MJA), multiple psychiatric admissions-most recently was in this facility March 2018, noncompliance with medications and follow up apps, pt came to the ED for evaluation of depressive symptoms, possible suicidal ideation, patient also appears to be disorganized, psychotic, actively hallucinating, patient also appeared to be under the influence of drugs, urine drug screen was positive for opioids/cannabis/cocaine. Most likely patient was noncompliant with the medications, follow-up appointments, patient requires higher level of care, observation, stabilization, medication resumption and titration. there are no acute issues over night Dr.Jacoby hanson/jed alcalaypdavid and started seroquel as per pt's request. pt was tearful today, said that "I am angry, constantly feel agitated" pt preoccupied that she has dementia, pt also said it is the only reason why she could have memory problems, pt is PCP user and this copy writer strongly believe memory problems related to drugs, pt verbalized understanding. patient reported that she feels very depressed, hopeless, helpless. Patient still paranoid, reported that "nobody loves me, everybody hates me, I hate myself". She continues to emotional, impulsive and scattered on the unit. Insight and judgment remains poor, impulse control is tenuous. so far patient tolerates medications well, no side effects observed or reported , aims 0, no EPS. Diagnostic Results: rule out schizoaffective disorder bipolar type Polysubstance abuse and dependence Drug-induced psychosis Medication Change: Yes (seroquel increased) Medical Record Reviewed: Yes Consults ordered or reviewed: patient was seen by medical team as well as surgical team, please see notes for more detailed information, input appreciated Mental Status Examination - Cognitive Function Orientation: Person, Place, Situation Attention: Poor Concentration: Poor Association: Loose Fund of Knowledge: Poor - Mood Mood: Depressed, Anxious - Affect Affect: Flat - Formal Thought Process Formal Thought Process: Hallucinations, Delusions, Paranoia, Loosening of associations - Suicidal Ideation Suicidal Ideation: No - Homicidal Ideation Homicidal Ideation: No Goal/Treatment Plan - Goal/Treatment Plan Need for Continued Stay: Remain at risks for inpatient hospitalization, Severe depression anxiety, Discharge may exacerbated symptoms, Severe functional impairment Progress Toward Problem(s) and Goals/Treatment Plan: Milieu/structure/supportive therapy Medical consult appreciated, see medical team note for more detailed info surgical consult appreciated please see notes for more detailed information when necessary medications Haldol Benadryl and Ativan Multivitamins thiamine and folic acid Zyprexa d/c seroquel 100mg po tid for psychosis with the plan to increase it further Neurontin 600 mg 3 times a day for cravings and multiple stabilization Prozac 20 mg by mouth daily for depression and anxiety trazodone 50 mg for insomnia as well as depression SW consultation for discharge plan and social issues patient might benefit from inpatient rehabilitation Family involvement Follow up on labs Will monitor closely Pt was educated about risk/benefits and alternatives of medications, coping strategies (safety plan, suicide prevention), relapse prevention, importance of follow up with psychiatrist and therapist, stay away from drugs/alcohol/smoking Estimated Date of D/C: 12/23/17
--- NOTE | 2017-12-18 15:01 | PN ---
DATE: 12/17/[address] Carrera. This note is being dictated on 12/18/2017 with the patient having been evaluated on 12/17/2017, but with a dictation delay due to mechanical difficulties. The patient was seen in treatment team. The patient is known to me from prior hospitalizations. The patient presently was admitted because of depressive symptoms including suicidal ideation, disorganized thinking, actively hallucinating possibly under the influence of drugs. Her drug screen had been positive for opioids/cannabis/cocaine. She is also considered noncompliant with the medication. She has a past history of schizoaffective disorder with associated anxiety, possibly borderline personality disorder. Hospital notes indicated I had last cared for her in 05/2011, but the reports are unavailable. Nonetheless, I have recognition of her and she has recognition of me. The patient presently appears to be withdrawn. She is alert and oriented three spheres. She still exhibits emotional lability. She has been denying suicidal or homicidal ideation or auditory and visual hallucinations. She is, however, considered to be impulsive. She is being maintained on Ativan p.r.n. and 0.5 b.i.d., Benadryl p.r.n., trazodone 100 mg at bedtime, Haldol p.r.n., Neurontin 600 mg t.i.d., Prozac 20 mg daily, Seroquel 100 mg at bedtime. On 12/11/2017, she showed a lowered hemoglobin of 10.3, hematocrit 31.2. Her last laboratory work was on 12/11 showed lowered potassium of 3.3 and elevated AST of 39. Temperature 98.2, pulse 93, blood pressure 102/71, respiratory rate 20. Carmelo Melton MD/ PhD
[2017-12-19] MEDS: Bacitracin Ointment 30 GM TUBE TOP SCH ×2 (08:45→15:48)
--- NOTE | 2017-12-19 09:17 | PCM.PYCHPN ---
Psychiatric Progress Note - Psychiatric Progress Note Patient seen today, length of contact: 30 min Problems Identified/Issues Discussed: PROGRESS NOTE I reviewed recent notes and met with patient at bedside. She continues to be emotional, anxious and dramatic though seems a little more subdued than my interviews with her last weekend. Patient reports that seroquel has been helping but the dose is too low. Indicates she didn't sleep well and that auditory hallucinations and paranoia persist. She isn't responding to internal stimuli during my visit and denies any side effects. Patient does endorse lower back pain-unchanged from before. Staff have noted that patient is alvarez, irritable, demanding and unpredictable. Insight and judgment remains poor, impulse control is tenuous. Diagnostic Results: rule out schizoaffective disorder bipolar type Polysubstance abuse and dependence Drug-induced psychosis Medication Change: Yes (Increased seroquel) Medical Record Reviewed: Yes Mental Status Examination - Cognitive Function Orientation: Person, Place, Situation Attention: Poor Concentration: Poor Association: Loose Fund of Knowledge: Poor - Mood Mood: Depressed, Anxious - Affect Affect: Flat, Other (labile, loud, irritable, emotional, demanding) - Formal Thought Process Formal Thought Process: Hallucinations, Delusions, Paranoia, Loosening of associations - Suicidal Ideation Suicidal Ideation: No - Homicidal Ideation Homicidal Ideation: No Goal/Treatment Plan - Goal/Treatment Plan Need for Continued Stay: Remain at risks for inpatient hospitalization, Severe depression anxiety, Discharge may exacerbated symptoms, Severe functional impairment Progress Toward Problem(s) and Goals/Treatment Plan: * c/w current tx and plan * Continue Seroquel 100 mg po bid, increased 100 mg HS to 200 mg HS. Will continue to titrate as necessary Vitals reviewed and noted below: Selected Entries 12/18/17 12/18/17 07:02 15:40 Temperature 97.6 F Pulse Rate 82 107 H Respiratory 20 Rate Blood Pressure 98/64 L 111/79 * No new weekend lab results thus far: Estimated Date of D/C: 12/23/17
[2017-12-19] MEDS ORDERED: Magnesium Hydroxide Susp 30 ml UD PO PRN (14:01)
--- NOTE | 2017-12-19 15:39 | RAD ---
PROCEDURE: Left Hand Radiographs. HISTORY: pain COMPARISON: None. FINDINGS: BONES: Normal. No fracture. JOINTS: Normal. No osteoarthritic changes. There is an orthopedic screw in the 2nd DIP joint SOFT TISSUES: Normal. OTHER FINDINGS: None. IMPRESSION: No acute findings
--- NOTE | 2017-12-19 18:57 | PN ---
DATE: 12/19/2017 SUBJECTIVE: I saw her in her room on the psychiatric floor. She is showing me her left hand, is now being unwrapped from her bandages as she is having left a hand finger deformity. She wants to get an x-ray of the hand and I agreed, that is where the dog bite was. There are still some sutures left and it does look clean, but we are going to find out what is going on to her bones in her fingers. She is on Ativan, bacitracin, Benadryl, Desyrel, folic acid, Haldol, Motrin, Neurontin, Nicoderm, Prozac. She had vaccinated for rabies. Seroquel, Tylenol, vitamin B1. PHYSICAL EXAMINATION: VITAL SIGNS: She has a 97.9 temperature, 79 pulse, 101/68 blood pressure, 20 respiratory rate. HEENT: Head is atraumatic, normocephalic. HEART: Regular rate. LUNGS: Decreased breath sounds, but clear. ABDOMEN: Soft, nontender. Positive bowel sounds. EXTREMITIES: No edema in the left hand, but with swollen crooked fingers and a healing laceration with two sutures in place on the left hand. LABORATORY DATA: She has a 5.5 white count on the 14th, 10.9 hemoglobin, 30.4 hematocrit with 330 platelets. She has a 137 sodium, potassium is 4.4, better. BUN 22, creatinine 0.5. GFR is 60. Sugar is 84. Calcium is 8.7. Total bili is 0.2, AST is 29, ALT is 24, alk phos 51. Total protein 6.8. TSH did go back to normal at 1.66, which is good. She may be a little bit better than the other day. We will do an x-ray of the left hand. I encouraged her to participate and take the medications, and she understands that. She is here for multiple issues, schizophrenia, bipolar, suicidal ideation, UTI, low potassium, low back pain, and left hand dog bite and sutures. Nate Smiley DO
[2017-12-20 07:20] VITALS: BP 109/68; PULSE 80; TEMP 98
[2017-12-20] MEDS: Bacitracin Ointment 30 GM TUBE TOP SCH ×2 (09:57→17:32)
--- NOTE | 2017-12-20 10:19 | PN ---
DATE: 12/20/2017 SUBJECTIVE: I saw her walking around the Psych floor. She is doing fairly well. She said the left hand is starting to feel better. MEDICATIONS: She is on Ativan, bacitracin, Benadryl, Desyrel, folic acid, Haldol, milk of magnesia, Motrin, Neurontin, Nicoderm patch, [place] spray, Prozac. She had a vaccine for the dog bite, a rabies vaccine. Seroquel, Tylenol, vitamin B1. PHYSICAL EXAMINATION: VITAL SIGNS: She has a 98 temp, 80 pulse, 109/68 blood pressure, 20 respiratory rate. HEENT: The head is atraumatic, normocephalic. HEART: Regular rate. LUNGS: Clear to auscultation. ABDOMEN: Soft. EXTREMITIES: No edema. The left hand is bandaged. LABORATORY DATA: She has last labs on 12/18/2017 and they were pretty good. HIV was nonreactive. She had a hand x-ray, which shows no acute finding and the LS spine, she had unremarkable lumbar spine. ASSESSMENT AND PLAN: There is an orthopedic screw in the second DIP joint that is probably where the deformity came in for the left hand which she did not tell me about and we will continue with the aggressive treatment and care and psychological care on [place]. Nate Smiley DO
--- NOTE | 2017-12-20 11:09 | PCM.PYCHPN ---
Psychiatric Progress Note - Psychiatric Progress Note Patient seen today, length of contact: 30 min Problems Identified/Issues Discussed: PROGRESS NOTE I reviewed recent notes and met with patient at bedside. She continues to be emotional, anxious and dramatic though seems a little more subdued than my interviews with her last weekend. Patient reports that seroquel has been helping and she seemed to sleep better last night but day time dose is too low. She continues to endorse auditory hallucinations and paranoia "the same sh*t". She isn't responding to internal stimuli during my visit and denies any side effects. Patient does endorse lower back pain-unchanged from before. Staff have noted that patient is alvarez, irritable, demanding and unpredictable but this is actually an improvement from extreme volatility at admission. Insight and judgment remain poor, impulse control is tenuous. Diagnostic Results: rule out schizoaffective disorder bipolar type Polysubstance abuse and dependence Drug-induced psychosis Medication Change: Yes (Increased seroquel) Medical Record Reviewed: Yes Mental Status Examination - Cognitive Function Orientation: Person, Place, Situation Attention: Poor Concentration: Poor Association: Loose Fund of Knowledge: Poor - Mood Mood: Depressed, Anxious - Affect Affect: Flat, Other (labile, loud, irritable, emotional, demanding) - Formal Thought Process Formal Thought Process: Hallucinations, Delusions, Paranoia, Loosening of associations - Suicidal Ideation Suicidal Ideation: No - Homicidal Ideation Homicidal Ideation: No Goal/Treatment Plan - Goal/Treatment Plan Need for Continued Stay: Remain at risks for inpatient hospitalization, Severe depression anxiety, Discharge may exacerbated symptoms, Severe functional impairment Progress Toward Problem(s) and Goals/Treatment Plan: * c/w current tx and plan * Appreciate f/u by Dr. Smiley on 12/19/17 and 12/20/17~ordered hand xray which didn't reveal any acute findings though noted an orthopedic screw in 2nd DIP joint. * Increase to Seroquel 150 mg po bid and 200 mg HS on 12/20/17. Will continue to titrate as necessary Vitals reviewed and noted below: 12/20/17 07:19 Temperature 98 F Pulse Rate 80 Respiratory 20 Rate Blood Pressure 109/68 * New weekend lab result noted below: 12/19/17 07:00 TSH 3rd Generation 1.66 Estimated Date of D/C: 12/23/17
--- NOTE | 2017-12-21 09:23 | PN ---
DATE: 12/21/2017 SUBJECTIVE: I saw her in the Psychiatric floor. She slept well. She is doing fairly well today. She had questions for me on her x-rays and how she has been. She is on Ativan, bacitracin, Benadryl, Desyrel, folic acid, Haldol, milk of magnesia, Motrin, Neurontin, Nicoderm, [place] spray and Prozac. Rabies virus shot was given. Seroquel, Tylenol and vitamin B1. PHYSICAL EXAMINATION: VITAL SIGNS: She has a 98 temperature, 80 pulse, 109/68 blood pressure, 20 respiratory rate. HEENT: Head is atraumatic, normocephalic. HEART: Regular rate. LUNGS: Decreased breath sounds but clear. ABDOMEN: Soft. EXTREMITIES: No edema. The right hand is improving. LABORATORY DATA: Last labs on 12/18/2017 shows she did well. TSH has normalized. We discussed no more cocaine and no more marijuana. I do not know if she will follow directions. We also discussed the hand x-ray which showed no acute findings, but there is an orthopedic screw in the second DIP joint which goes along with the deformity of that finger which she did not tell me about. I had to remind her about it, otherwise, continue aggressive treatment and care. We will follow as per Psychiatry. Nate Smiley DO
[2017-12-21] MEDS: Bacitracin Ointment 30 GM TUBE TOP SCH (09:55)
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
== END 2017-12-21 17:15 | disposition home or self-care (01) | DRG 885 ==
LOC: ED 03:54 → ERH 08:50 → PSYC 09:55
PROVIDERS: ADMIT Psychiatry & Neurology Psychiatry; ATTEND Psychiatry & Neurology Psychiatry
PROC: 3E0234Z Introduction of Serum, Toxoid and Vaccine into Muscle, Percutaneous Approach (ICD-10-PCS; principal; 2017-12-11)
DX: F31.9 Bipolar disorder, unspecified (principal); F11.259 Opioid dependence with opioid-induced psychotic disorder, unspecified; N39.0 Urinary tract infection, site not specified; R45.851 Suicidal ideations; D64.9 Anemia, unspecified; F03.90 Unspecified dementia, unspecified severity, without behavioral disturbance, psychotic disturbance, mood disturbance, and anxiety; F14.159 Cocaine abuse with cocaine-induced psychotic disorder, unspecified; F17.200 Nicotine dependence, unspecified, uncomplicated; F25.9 Schizoaffective disorder, unspecified; F41.9 Anxiety disorder, unspecified; F60.3 Borderline personality disorder; G47.00 Insomnia, unspecified; S61.452A Open bite of left hand, initial encounter; W54.0XXA Bitten by dog, initial encounter; Z20.3 Contact with and (suspected) exposure to rabies; Z23 Encounter for immunization; Z29.14 Encounter for prophylactic rabies immune globulin; Z79.899 Other long term (current) drug therapy; Z87.440 Personal history of urinary (tract) infections; Z91.14 Patient's other noncompliance with medication regimen; Z91.5 Personal history of self-harm; N28.1 Cyst of kidney, acquired; Z88.0 Allergy status to penicillin

== ENCOUNTER 2018-06-04 01:18 | Inpatient (IN) | payer MEDICARE, OTHER, MEDICAID | END 2018-06-18 12:25 | disposition designated cancer center or children's hospital (05) | LOC: PSYC 06-06 11:21 → ED 01:18 → PSYC 06-07 22:38 → ERH 08:38 → PSYC 09:38 ==